=== PATIENT | female | born 1940 | race Caucasian/White ===

== ENCOUNTER 2017-05-20 14:11 | Emergency (ER) | payer MEDICARE, MEDICAID, SELFPAY ==
[2017-05-20 14:13] VITALS: BP 118/75; PULSE 56; RESP 20; TEMP 36.9; O2SAT 93; BMI 36.6
--- NOTE | 2017-05-20 14:39 | HMH.EDGENADL ---
ED Disposition Clinical Impression: Mental status change resolved Compression fracture of L3 lumbar vertebra Qualifiers: Encounter type: initial encounter Fracture type: closed Qualified Code(s): S32.030A - Wedge compression fracture of third lumbar vertebra, initial encounter for closed fracture Disposition: Xfer SNF Condition on Discharge: Good Instructions: DI for Altered Mental Status Additional Instructions: Continue current medications. Dr. Farrell will follow up for further evaluation and treatment of compression fracture. - Critical Care Critical Care Time: No Attestation: On 05/20/17, the high probability of a clinically significant, sudden or life threatening deterioration of the following system(s) required my full and direct attention, intervention and personal management. The time I documented below is in addition to time spent performing reported procedures but includes the following listed in this critical care notation. Medical Decision Making Vital Signs: 05/20/17 14:13 05/20/17 16:13 05/20/17 16:30 Temperature 98.4 F Temperature Source Oral Pulse Rate [Right Brachial] 56 L 89 60 Respiratory Rate 20 16 16 Blood Pressure [Right Arm] 118/75 135/89 135/89 Blood Pressure Mean [Right Arm] 89 104 104 Blood Pressure Source [Right Arm] Automatic Cuff Automatic Cuff Blood Pressure Position [Right Arm] Sitting Sitting 02 Sat by Pulse Oximetry 93 L 94 L Oxygen Delivery Method Nasal Cannula Nasal Cannula Oxygen Flow Rate (LPM) 2 - Lab Data Lab Results 05/20/17 15:12: Urine Color Yellow, Urine Appearance Clear, Urine pH 6.0, Ur Specific [place] 1.010, Urine Protein Negative, Urine Glucose (UA) Negative, Urine Ketones Negative, Urine Blood Trace-i, Urine Nitrate Negative, Urine Bilirubin Negative, Urine Urobilinogen 0.2, Ur Leukocyte Esterase Negative, Urine RBC None, Urine WBC Occasional, Ur Squamous Epith Cells 10-20, Urine Bacteria Trace 05/20/17 16:30: WBC 8.6, RBC 4.00 L, Hgb 11.1 L, Hct 35.3 L, MCV 88.3, MCH 27.7, MCHC 31.3 L, RDW 16.2, Plt Count 159, MPV 10.0, Neut % (Auto) 77.3, Lymph % (Auto) 16.1, Blanco % (Auto) 4.2, Eos % (Auto) 2.1, Baso % (Auto) 0.3, Neut # (Auto) 6.7, Lymph # (Auto) 1.4, Blanco # (Auto) 0.4, Eos # (Auto) 0.2, Baso # (Auto) 0.0 05/20/17 16:30: Sodium 136, Potassium 5.3 H, Chloride 99, Carbon Dioxide 35 H, Anion Gap 7.3, BUN 17, Creatinine 0.78, Estimated Creat Clear 65, Estimated GFR 71, Est GFR ( Amer) 86, Glucose 126 H, Calcium 8.4 L, Total Bilirubin 0.6, AST 7 L, ALT 23, Alkaline Phosphatase 103, Total Creatine Kinase 21 L, CK-MB (CK-2) 0.7, CK-MB (CK-2) Rel Index 3.3, Troponin I < 0.02, Total Protein 6.8, Albumin 3.2 L, Globulin 3.6 H, Albumin/Globulin Ratio 0.9 L 05/20/17 16:30: Lactic Acid 0.5 Result diagrams: 05/20/17 16:30 05/20/17 16:30 - Radiology Data #1 Image(s): Chest Image Reviewed: Yes I have reviewed radiologist's interpretation Left lower lobe atelectasis, cardiomegaly - CT Data CT Scan: Head, L-Spine Time Received: 16:[address] Reviewed: Yes: I have viewed the radiologist's interpretation Findings Narrative: Head: No acute process Lumbar spine: Mild acute wedge compression L3, Chronic compression fractures of T12 and L4. Degenerative disc disease L4-L5 with bulging disc and possible small central disc protrusion. Grade 1 spondylolisthesis of L5 on S1 severe hypertrophic facet changes and bulging disc. - [place] Inquiry Pt receiving controlled substance: No Medical Decision Making Narrative: 5:45 PM: Case discussed with Dr. Farrell. Discharge back to assisted. He will discuss potential kyphoplasty with patient and son. Son informed. The patient is already on [place] for pain. General Adult HPI - General Chief complaint: PAIN Stated complaint: altered mental status Mode of Arrival: EMS Limitations: No Limitations Description of Symptoms (Recalled from ER Triage Doc. by RN): Per EMS report they were called for AMS. U
--- NOTE | 2017-05-20 15:08 | CT_ITS ---
CT head/brain wo con HISTORY: Altered mental status, altered level of consciousness, confusion, slurred speech ITS.REASON: AMS, slurred speech ORDERING PHYSICIAN: Donato Schultz MD PATIENT AGE: 77 years COMPARISON: None TECHNIQUE: Axial images obtained without contrast. Brain and bone windows reviewed. FINDINGS: No midline shift, mass effect, intracranial hemorrhage, hydrocephalus, or extra-axial fluid collection is evident. There is mild generalized atrophy with hypoattenuation in the periventricular region consistent with ischemic gliotic change from microvascular disease. The calvarium has an unremarkable appearance. No mastoid effusion. No sinus air-fluid levels.. IMPRESSION: 1. No acute intracranial finding. 2. Atrophy with ischemic gliotic change. 3. There is no evidence of intracranial hemorrhage, focal mass, or acute territorial infarction. A negative CT does not exclude an acute CVA. A follow-up head CT or MRI is recommended if neurological symptoms persist
--- NOTE | 2017-05-20 15:10 | XR_ITS ---
XR chest AP HISTORY: ITS.REASON: AMS, slurred speech ORDERING PHYSICIAN: Donato Schultz MD PATIENT AGE: 77 years COMPARISON: 02/21/2017 FINDINGS: Study is underpenetrated. There is cardiomegaly without failure. Atelectatic changes are present in the left lower lobe. Cannot exclude underlying airspace disease secondary to the technique. There is an old left humeral neck fracture. IMPRESSION: Limited exam with Cardiomegaly with left lower lobe atelectasis
--- NOTE | 2017-05-20 15:14 | CT_ITS ---
CT lumbar spine wo con INDICATION: ITS.REASON: low back pain ORDERING PHYSICIAN: Donato Schultz MD PATIENT AGE: 77 years COMPARISON: 09/07/2008 TECHNIQUE: Axial images are obtained without contrast. Sagittal and coronal reformatted images are reviewed as well. FINDINGS: There is normal alignment. Mild wedging at T12 present that had a similar appearance on a prior abdomen CT of 03/23/2014. There is generalized osteopenia. Mild compression changes are present involving the superior endplate of L3 which is developed since the previous lumbar spine CT of 09/07/2008 and the previous abdomen CT of 03/23/2014. No retropulsed fragments are evident. Facet arthritic changes are present at L3-L4. There is mild chronic compression changes involving the superior endplate of L4. There is degenerative disc disease at L4-L5 with moderate to severe facet arthritic changes and bulging disc. There may be small central disc protrusion at this level which may be better evaluated with MRI. There is grade 1 spondylolytic spondylolisthesis of L5 on S1 with severe facet hypertrophic change and bulging disc at that level. There is moderate to severe right-sided foraminal narrowing on with bilateral lateral recess narrowing. IMPRESSION: 1. Mild acute wedge compression changes involving the L3 vertebral body 2. Chronic compression changes involving T12 and L4 3. Degenerative disc disease L4-L5 with bulging disc and possible small central disc protrusion. 4. Grade 1 spondylitic spondylolisthesis of L5 on S1 with severe facet hypertrophic change and bulging disc
[2017-05-20 16:13] VITALS: BP 135/89; PULSE 89; RESP 16; O2SAT 94
[2017-05-20 16:30] VITALS: BP 135/89; PULSE 60; RESP 16
[2017-05-20 16:33] LABS: Microscopic, Urine URINE MICROSCOPIC (MICROSCOPIC)
[2017-05-20 16:39] LABS: Appearance,Urine CLEAR (Clear); Bilirubin,Urine Negative (Negative); Blood, Urine TRACE-I (Negative); Color,Urine YELLOW (Yellow); Glucose,Urine (UA) Negative (Negative); Ketones,Urine Negative (Negative); Leukocyte Esterase,Urine Negative (Negative); Nitrate,Urine Negative (Negative); Protein,Urine Negative (Negative); Urobilinogen,Urine 0.2 EU/dl (0.2)
[2017-05-20 16:39] LABS: Basophils % 0.3 % (0.1-2.0); Eosinophils # 0.2 K/mm3 (0.0-0.4); Eosinophils % 2.1 % (0.1-12.0); Hematocrit 35.3 % (37.0-47.0); Hemoglobin 11.1 g/dL (12.2-16.2); Lymphocytes # 1.4 K/mm3 (0.7-4.5); Lymphocytes % 16.1 K/mm3 (10-50); Mean Corpuscular HGB Conc 31.3 g/dL (31.8-35.4); Mean Corpuscular Hemoglobin 27.7 pg (27.0-31.2); Mean Corpuscular Volume 88.3 fl (81-99); Monocytes # 0.4 K/mm3 (0.1-1.0); Monocytes % 4.2 % (1.7-9.3); Neutrophils # 6.7 K/mm3 (1.8-7.8); Neutrophils % 77.3 % (37.0-80.0); Platelet Count 159 K/mm3 (142-424); Red Cell Distribution Width 16.2 % (11.5-17.5); White Blood Count 8.6 K/mm3 (4.8-10.8)
[2017-05-20 16:52] LABS: Lactic Acid 0.5 mmol/L (0.4-2.0)
[2017-05-20 16:55] LABS: Bacteria,Urine Trace /lpf; WBC,Urine Occasional #/hpf (0-3)
[2017-05-20 17:03] LABS: Alanine Aminotransferase 23 U/L (12-78); Albumin Level 3.2 gm/dL (3.4-5.0); Albumin/Globulin Ratio 0.9 (1.1-1.8); Alkaline Phosphatase 103 U/L (46-116); Anion Gap 7.3 mEq/L (5-15); Aspartate Amino Transferase 7 U/L (15-37); Bilirubin,Total 0.6 mg/dL (0.2-1.0); Blood Urea Nitrogen 17 mg/dL (7-18); CKMB Relative Index 3.3 U/L (0-4.0); Calcium 8.4 mg/dL (8.5-10.1); Carbon Dioxide 35 mmol/L (21.0-32.0); Chloride 99 mmol/L (98-107); Creatine Kinase 21 U/L (26-192); Creatine Kinase MB 0.7 mg/ml (0.0-3.6); Creatinine Clearance Estimated 65 mL/min (0-300); Creatinine,Serum 0.78 mg/dL (0.55-1.02); Estimated Glomerular Filt Rate 71 ml/min (>60); GFR (African American) 86 ML/MIN (>60); Globulin 3.6 gm/dl (1.3-3.2); Glucose 126 mg/dL (74-106); Potassium 5.3 mmoL/L (3.5-5.1); Sodium 136 mmol/L (136-145); Total Protein,Serum 6.8 gm/dL (6.4-8.2); Troponin I < 0.02 ng/ml (0.00-0.06)
[2017-05-20 20:30] VITALS: BP 165/65; PULSE 66; RESP 20; TEMP 36.8; O2SAT 94
[2017-05-20 20:50] VITALS: BP 165/65; PULSE 66; RESP 16; TEMP 36.8; O2SAT 94
== END 2017-05-20 20:52 ==
PROVIDERS: Emergency Provider Emergency Medicine; Family Provider Internal Medicine Adolescent Medicine
DX: S32.030A Wedge compression fracture of third lumbar vertebra, initial encounter for closed fracture (principal); I51.7 Cardiomegaly; Z88.2 Allergy status to sulfonamides
CPT/HCPCS: 36415; 70450; 71045; 72131; 80053; 81001; 82550; 82553; 83605; 84484; 85025; 93005; 99285

== ENCOUNTER → 2017-06-01 12:57 | Outpatient (CLI) | payer MEDICARE, MEDICAID, SELFPAY ==
--- NOTE | 2017-06-01 13:05 | US_ITS ---
ULTRASOUND THYROID PROCEDURE: Multiple sagittal & transverse ultrasound images of the thyroid.MW HISTORY: Follow-up thyroid nodules COMPARISON: None ----- FINDINGS: RIGHT LOBE: Large right lobe measures 4.4 cm length X 3.4 cm x 2.4 cm Nodule A: Large primarily solid nodule mid right lobe measures 3 cm transverseX 2.2 cm AP X3 cm length. Small cystic areas at the anterior aspect of this nodule. Moderate to generous vascular flow along the anterior aspect of this large right lobe nodule. LEFT LOBE: Smaller left lobe measures 3.4 cm in length X 1.4 cm wide x 1.3 cm AP. . No discrete nodule the smaller left lobe: ISTHMUS: Thickened isthmus slightly lobular. Isthmus measures 6 mm AP in midline but increases to 8 mm AP to the right of midline. IMPRESSION Enlarged right lobe. Large dominant 3 cm nodule at the midportion right lobe 3. Thickened isthmus slightly lobular but no focal nodule.
== END ==
PROVIDERS: Family Provider Internal Medicine Adolescent Medicine; PCP Internal Medicine Adolescent Medicine; Visit Provider Otolaryngology
DX: E04.1 Nontoxic single thyroid nodule (principal)
CPT/HCPCS: 76536

== ENCOUNTER → 2017-06-01 13:33 | Outpatient (POV) | payer MEDICARE, MEDICAID, SELFPAY ==
[2017-06-01 14:28] VITALS: BP 150/91; PULSE 60; RESP 15; O2SAT 94; BMI 34.7
--- NOTE | 2017-06-01 17:42 | HMH.PMCON ---
Assessment and Plan (1) Osteoporosis Current visit: Yes Status: Chronic Category: Medical Code(s): M81.0 - Age-related osteoporosis without current pathological fracture (2) Compression fracture of L3 lumbar vertebra Current visit: No Status: Acute Category: Medical Code(s): S32.030A - Wedge compression fracture of third lumbar vertebra, initial encounter for closed fracture - Assessment and plan all Dx Assessment and Plan for all problems:: We will plan an L3 kyphoplasty for pain relief. I have explained the procedure to the patient and discussed the risks and benefits. I answered all of her and her son's questions. They have been instructed to call the office if they have any additional questions. Patient is not on any blood thinners. This note was dictated using voice recognition software and may contain errors or omissions HPI - Data of Consult Consult date: 06/01/17 Requesting Physician: Benita Swan APRN Primary Care Provider: Saulo Farrell MD Family Provider: Saulo Farrell MD - Consult Narrative Reason for consult: Sudden onset of back pain History of present illness: Ms. Zhang is a 77 year old female presents to discuss her sudden onset of back pain. Patient had a CT scan that showed that she had a compression fracture at both T12 and L3. Patient's majority of her pain is her low back. She states it does not radiate anywhere. Patient is in the wheelchair and does not walk. Patient uses a business solutions director for help. Patient rates her pain an 8 out of 10 today. Patient states all movement increases her pain and nothing decreases her pain. Patient is currently in a shelter and presents today with her son for this visit. Patient states she has a history of osteoporosis. CC: Benita Swan APRN [facility] History I have reviewed the patient's past medical history: Yes Medical History: Reports:: Diabetes Mellitus Type 2, Hypertension Denies:: Diabetes Mellitus Type 1 Fractures: Yes (SPINAL COMPRESSION FX) - *Social History Educational Level: Completed High School Smoking Status: Unknown if ever smoked Alcohol Intake: never Occupational Status: retired Housing: shelter - Psychiatric History Expresses thoughts of harming self/others: None Suicide Plan Description: No Plan *Family Hx:: Unable to obtain Review of Systems - Review of Systems ROS General: no recent weight change, no fever, no sleep disturbances Respiratory: no cough, no shortness of air, no recurring pulmonary infections Cardiovascular/Peripheral Vascular: No chest pain, No palpitations, no edema, no shortness of breath. Gastrointestinal: no new onset incontinence, normal bowel movements reported Genitourinary: no new onset incontinence Musculoskeletal: Back pain Psychiatric: normal mood/ affect, Neurological: Patient states she always has weakness in bilateral lower extremities, Meds Home Medications Medication Instructions Recorded Confirmed Type Acetaminophen [Tylenol 500mg 500 mg PO HSP PRN 06/01/17 06/01/17 History tablet] Amlodipine Besylate [Amlodipine 10 mg PO DAILY 06/01/17 06/01/17 History 10mg Tab] Aspirin [Aspirin 325mg Tab] 325 mg PO DAILY 06/01/17 06/01/17 History Bisacodyl [Dulcolax 10mg Supp] 10 mg RC DAILYP PRN 06/01/17 06/01/17 History Calcium Carbonate/Vitamin D3 1 each PO DAILY 06/01/17 06/01/17 History [Oyster Shell Calcium Tablet] Escitalopram Oxalate [Lexapro] 5 mg PO DAILY 06/01/17 06/01/17 History Esomeprazole Magnesium [Nexium] 40 mg PO DAILY 06/01/17 06/01/17 History Gabapentin [Neurontin 600mg 600 mg PO ONCE 06/01/17 06/01/17 History tablet] Hydrocod/Acet 5/325 mg [[place] 1 tab PO Q4HP PRN 06/01/17 06/01/17 History 5/325mg tablet] Insulin Lispro Protamin/Lispro 46 unit SQ ONCE 06/01/17 06/01/17 History [Humalog Mix 75-25 Kwikpen] Insulin Lispro Protamin/Lispro 58 unit SQ PC 06/01/17 06/01/17 History [Humalog Mix 7
--- NOTE | 2017-06-01 17:45 | P.CONS_ITS ---
Assessment and Plan (1) Osteoporosis Current visit: Yes Status: Chronic Category: Medical Code(s): M81.0 - Age- related osteoporosis without current pathological fracture (2) Compression fracture of L3 lumbar vertebra Current visit: No Status: Acute Category: Medical Code(s): S32.030A - Wedge compression fracture of third lumbar vertebra, initial encounter for closed fracture - Assessment and plan all Dx Assessment and Plan for all problems:: We will plan an L3 kyphoplasty for pain relief. I have explained the procedure to the patient and discussed the risks and benefits. I answered all of her and her son's questions. They have been instructed to call the office if they have any additional questions. Patient is not on any blood thinners. This note was dictated using voice recognition software and may contain errors or omissions HPI - Data of Consult Consult date: 06/01/17 Requesting Physician: Benita Swan APRN Primary Care Provider: Saulo Farrell MD Family Provider: Saulo Farrell MD - Consult Narrative Reason for consult: Sudden onset of back pain History of present illness: Ms. Zhang is a 77 year old female presents to discuss her sudden onset of back pain. Patient had a CT scan that showed that she had a compression fracture at both T12 and L3. Patient's majority of her pain is her low back. She states it does not radiate anywhere. Patient is in the wheelchair and does not walk. Patient uses a cubing machine tender for help. Patient rates her pain an 8 out of 10 today. Patient states all movement increases her pain and nothing decreases her pain. Patient is currently in a group home and presents today with her son for this visit. Patient states she has a history of osteoporosis. CC: Benita Swan APRN [facility] History I have reviewed the patient's past medical history: Yes Medical History: Reports:: Diabetes Mellitus Type 2, Hypertension Denies:: Diabetes Mellitus Type 1 Fractures: Yes (SPINAL COMPRESSION FX) - *Social History Educational Level: Completed High School Smoking Status: Unknown if ever smoked Alcohol Intake: never Occupational Status: retired Housing: group home - Psychiatric History Expresses thoughts of harming self/others: None Suicide Plan Description: No Plan *Family Hx:: Unable to obtain Review of Systems - Review of Systems ROS General: no recent weight change, no fever, no sleep disturbances Respiratory: no cough, no shortness of air, no recurring pulmonary infections Cardiovascular/Peripheral Vascular: No chest pain, No palpitations, no edema, no shortness of breath. Gastrointestinal: no new onset incontinence, normal bowel movements reported Genitourinary: no new onset incontinence Musculoskeletal: Back pain Psychiatric: normal mood/ affect, Neurological: Patient states she always has weakness in bilateral lower extremities, Meds Home Medications Medication Instructions Recorded Confirmed Type Acetaminophen [Tylenol 500mg 500 mg PO HSP PRN 06/01/17 06/01/17 History tablet] Amlodipine Besylate [Amlodipine 10 mg PO DAILY 06/01/17 06/01/17 History 10mg Tab] Aspirin [Aspirin 325mg Tab] 325 mg PO DAILY 06/01/17 06/01/17 History Bisacodyl [Dulcolax 10mg Supp] 10 mg RC DAILYP PRN 06/01/17 06/01/17 History Calcium Carbonate/Vitamin D3 1 each PO DAILY 06/01/17 06/01/17 History [Oyster Shell Calcium Tablet] Escitalopram Oxalate [Lexapro] 5
== END ==
PROVIDERS: Family Provider Internal Medicine Adolescent Medicine; PCP Internal Medicine Adolescent Medicine; Visit Provider Clinical Nurse Specialist Family Health
DX: S32.030A Wedge compression fracture of third lumbar vertebra, initial encounter for closed fracture (principal); M81.0 Age-related osteoporosis without current pathological fracture
CPT/HCPCS: 99202; 76536

== ENCOUNTER 2017-06-25 07:33 | Day surgery (SDC) | payer MEDICARE, MEDICAID, SELFPAY ==
[2017-06-24 10:47] VITALS: BMI 33.7
[2017-06-25 08:06] VITALS: BP 145/65; PULSE 65; RESP 18; TEMP 36.4; O2SAT 89
[2017-06-25 08:30] LABS: POC Glucose,Bedside 269 mg/dL (70-110)
--- NOTE | 2017-06-25 08:38 | P.PN_ITS ---
[facility] Anesthesia Checklist - Patient Identification Patient Identification: Arm Band, Verbal (Name & ) - Structural Data Admitted From: Long-term Nursing Facility Consent for Planned Operative Procedure(s) Verified: Yes Verified Documents: Surgical Consent, History and Physical - NPO Status Verified Time NPO: 00:00 - Additional verifications Patient : No Anesthesia Reactions: No - Airway Assessment C-Spine Mobility Assessed: Yes (Limited ROM) TMJ Mobility Assessed: Yes Dentition: Edentulous - Neurological Assessment Level of Consciousness: Awake Hx Seizures: No Numbness or tingling in extremities: No - Anesthesia Plan Anesthesia Risk discussed: Yes Anesthesia Plan: Verified ASA Class: III Anesthesia Type: MAC [facility] Anesthesia HX I have reviewed the patient's past medical history: Yes Medical History: Reports:: Diabetes Mellitus Type 2 (FSBS at [facility] 2x day), Gastroesophageal Reflux Disease(GERD), Hypertension Denies:: Cancer, Diabetes Mellitus Type 1, Internal Pacemaker, MRSA, Seizures Other Surgeries: Yes: Appendectomy. No: Pacemaker Amputation: No Fractures: Yes (SPINAL COMPRESSION FX) *Family Hx:: Unable to obtain
[2017-06-25 09:41] LABS: POC Glucose,Bedside 241 mg/dL (70-110)
[2017-06-25 10:52] LABS: POC Glucose,Bedside 199 mg/dL (70-110)
--- NOTE | 2017-06-25 12:36 | SUR.PREOP ---
Patient had bowel movement per bedpan.Patient resting. no S/S of distress noted. Family at bedside.
--- NOTE | 2017-06-25 13:53 | HMH.OPNOTE ---
Date of procedure: 06/25/17 Pre-op Diagnosis:: L3 compression fracture acute Post-op Diagnosis:: Same Procedure performed:: L3 kyphoplasty under fluoroscopy Surgeon:: Addy Santos MD AIR PLANT ENGINEER:: Kingston Singh Anesthesia: MAC Estimated blood loss (mL): 10 Clinical Note:: This patient is a pleasant 77-year-old white female who has sudden onset of back pain. She had a fall at the custodial. She has an old compression fracture at T12 however recent CT scan shows new compression fracture at L3. She has debilitating pain in the lower lumbar area. She has edema present around the L3 compression fracture with superior endplate changes. We will do an L3 kyphoplasty today for pain relief. Operative findings:: None Operative note:: Kyphoplasty L3 vertebral body informed consent was obtained and risks and benefits of the procedure was explained to the patient. Patient was taken to the OR and was placed prone on the procedure table. The patient was prepped and draped in sterile fashion. I used 2 C arms for AP and lateral view of the L3 vertebral body. The skin and subcutaneous tissues were anesthetized using lidocaine. Bone access trochars were placed through the LEFT and RIGHT pedicle and advanced into the vertebral body. After accessing the vertebral body a balloon was inserted first on the LEFT side followed by the RIGHT side with approximately 3 mL of contrast placed in each balloon with good insufflation. After adequate spread of contrast through the balloon, the balloons were deflated and cement was introduced first on the LEFT side with placement of approximately 3-1/2 mL of cement with good spread throughout the vertebral body and then on the RIGHT side was approximately 3 1/2 mL cement with good spread throughout the vertebral body. There was no extrusion of cement through the lateral blair, anterior or posterior blair. Also no extrusion through superior or inferior blair. The bone access trochars were removed and dressing was placed. The patient was taken back to recovery in stable condition. She had good resolution of her back pain 5 minutes after the procedure. She tolerated the procedure well with no complications and was discharged home neurologically intact. Condition: stable Disposition: PACU (We will follow-up with her in 2 weeks.) Complications:: None
--- NOTE | 2017-06-25 13:58 | P.OP_ITS ---
Date of procedure: 06/25/17 Pre-op Diagnosis:: L3 compression fracture acute Post-op Diagnosis:: Same Procedure performed:: L3 kyphoplasty under fluoroscopy Surgeon:: Addy Santos MD RESEARCH AND DEVELOPMENT TECHNICIAN:: Kingston Singh Anesthesia: MAC Estimated blood loss (mL): 10 Clinical Note:: This patient is a pleasant 77-year-old white female who has sudden onset of back pain. She had a fall at the senior care. She has an old compression fracture at T12 however recent CT scan shows new compression fracture at L3. She has debilitating pain in the lower lumbar area. She has edema present around the L3 compression fracture with superior endplate changes. We will do an L3 kyphoplasty today for pain relief. Operative findings:: None Operative note:: Kyphoplasty L3 vertebral body informed consent was obtained and risks and benefits of the procedure was explained to the patient. Patient was taken to the OR and was placed prone on the procedure table. The patient was prepped and draped in sterile fashion. I used 2 C arms for AP and lateral view of the L3 vertebral body. The skin and subcutaneous tissues were anesthetized using lidocaine. Bone access trochars were placed through the LEFT and RIGHT pedicle and advanced into the vertebral body. After accessing the vertebral body a balloon was inserted first on the LEFT side followed by the RIGHT side with approximately 3 mL of contrast placed in each balloon with good insufflation. After adequate spread of contrast through the balloon, the balloons were deflated and cement was introduced first on the LEFT side with placement of approximately 3-1/2 mL of cement with good spread throughout the vertebral body and then on the RIGHT side was approximately 3 1/2 mL cement with good spread throughout the vertebral body. There was no extrusion of cement through the lateral blair, anterior or posterior blair. Also no extrusion through superior or inferior blair. The bone access trochars were removed and dressing was placed. The patient was taken back to recovery in stable condition. She had good resolution of her back pain 5 minutes after the procedure. She tolerated the procedure well with no complications and was discharged home neurologically intact. Condition: stable Disposition: PACU (We will follow-up with her in 2 weeks.) Complications:: None
[2017-06-25 15:18] VITALS: BP 115/48; PULSE 81; RESP 18; TEMP 36.9; O2SAT 96
[2017-06-25 15:33] VITALS: BP 121/61; PULSE 74; RESP 18; O2SAT 95
[2017-06-25 15:48] VITALS: BP 133/59; PULSE 74; RESP 18; O2SAT 96
[2017-06-25 16:03] VITALS: BP 123/86; PULSE 73; RESP 18; O2SAT 96
[2017-06-25 16:33] VITALS: BP 113/66; PULSE 71; RESP 18; TEMP 36.9; O2SAT 96
[2017-06-25 17:02] LABS: POC Glucose,Bedside 285 mg/dL (70-110)
[2017-06-25 17:02] LABS: POC Glucose,Bedside 254 mg/dL (70-110)
== END 2017-06-25 16:33 | disposition home or self-care (01) ==
LOC: OR 07:36
PROVIDERS: Family Provider Internal Medicine Adolescent Medicine; PCP Internal Medicine Adolescent Medicine; Visit Provider Anesthesiology
DX: M48.56XA Collapsed vertebra, not elsewhere classified, lumbar region, initial encounter for fracture (principal); M81.0 Age-related osteoporosis without current pathological fracture; E11.9 Type 2 diabetes mellitus without complications
CPT/HCPCS: 22514; 82962; 96374

== ENCOUNTER → 2017-07-06 13:45 | Outpatient (POV) | payer MEDICARE, MEDICAID, SELFPAY ==
[2017-07-06 13:55] VITALS: BP 171/75; PULSE 65; RESP 18; TEMP 36.6; O2SAT 90; BMI 33.8
--- NOTE | 2017-07-06 14:02 | HMH.PAINSOAP ---
[facility] Pain Management SOAP Note Subjective:: Is a pleasant 77-year-old white female who presents today for follow-up after a L3 kyphoplasty. Patient states she is pain-free at this time. Patient states she is doing very well. Patient is not having any new symptomology. Patient and I discussed potential future compression fractures. Patient states that she has that pain again she will give our office a call. ROS General: no recent weight change, no fever, no sleep disturbances Respiratory: no cough, no shortness of air, no recurring pulmonary infections Cardiovascular/Peripheral Vascular: No chest pain, No palpitations, no edema, no shortness of breath. Gastrointestinal: no new onset incontinence, normal bowel movements reported Genitourinary: no new onset incontinence Musculoskeletal: Back pain Psychiatric: normal mood/ affect, Neurological: [denies weakness in extremities], [denies balance issues] Objective:: Physical Exam General: Alert and oriented x3, no acute distress, pleasant and cooperative, [on room air] Lungs: Resps E/U, Symmetrical chest expansion, Eyes: PERRL Musculoskeletal: Flexion and extension of lumbar spine somewhat guarded secondary to pain, deep tendon reflexes normal, strength in upper and lower extremities [5/5], [abnormal gait noted] Neurological: speech clear, library customer service clerk equal, no gross sensory deficits Assessment:: L3 kyphoplasty, history of compression fracture Plan:: We will follow-up with this patient on an as-needed basis. Patient was instructed to call the office if there are any changes in her symptoms. This note was dictated using voice recognition software and may contain errors or omissions
--- NOTE | 2017-07-06 14:05 | P.CONS_ITS ---
[facility] Pain Management SOAP Note Subjective:: Is a pleasant 77-year-old white female who presents today for follow-up after a L3 kyphoplasty. Patient states she is pain-free at this time. Patient states she is doing very well. Patient is not having any new symptomology. Patient and I discussed potential future compression fractures. Patient states that she has that pain again she will give our office a call. ROS General: no recent weight change, no fever, no sleep disturbances Respiratory: no cough, no shortness of air, no recurring pulmonary infections Cardiovascular/Peripheral Vascular: No chest pain, No palpitations, no edema, no shortness of breath. Gastrointestinal: no new onset incontinence, normal bowel movements reported Genitourinary: no new onset incontinence Musculoskeletal: Back pain Psychiatric: normal mood/ affect, Neurological: [denies weakness in extremities], [denies balance issues] Objective:: Physical Exam General: Alert and oriented x3, no acute distress, pleasant and cooperative, [ on room air] Lungs: Resps E/U, Symmetrical chest expansion, Eyes: PERRL Musculoskeletal: Flexion and extension of lumbar spine somewhat guarded secondary to pain, deep tendon reflexes normal, strength in upper and lower extremities [5/5], [abnormal gait noted] Neurological: speech clear, architectural modeler equal, no gross sensory deficits Assessment:: L3 kyphoplasty, history of compression fracture Plan:: We will follow-up with this patient on an as-needed basis. Patient was instructed to call the office if there are any changes in her symptoms. This note was dictated using voice recognition software and may contain errors or omissions
== END ==
PROVIDERS: Family Provider Internal Medicine Adolescent Medicine; PCP Internal Medicine Adolescent Medicine; Visit Provider Clinical Nurse Specialist Family Health
DX: S32.030S Wedge compression fracture of third lumbar vertebra, sequela (principal)
CPT/HCPCS: 99212

== ENCOUNTER → 2017-09-08 13:44 | Outpatient (CLI) | payer MEDICARE, MEDICAID, SELFPAY ==
--- NOTE | 2017-09-08 13:47 | US_ITS ---
US thyroid HISTORY: Follow-up thyroid nodule ITS.REASON: thyoid nodule ORDERING PHYSICIAN: Aguila Gonzalez MD PATIENT AGE: 77 years Comparison: 3 08/04/2012 FINDINGS: The right lobe measures 4.3 x 2.8 x 3.3 cm. A solid nodule once again is noted encompassing the right lobe measuring 3.5 x 2.2 cm not significant changed. Small cystic component is present anteriorly. The left lobe measures 2.5 x 1.5 x 1.4 cm and has an unremarkable appearance. The isthmus is slightly thickened at 7 mm. IMPRESSION: Overall no change 3.5 cm x 2.2 cm solid nodule in the right lobe of the thyroid gland
== END ==
PROVIDERS: Family Provider Internal Medicine Adolescent Medicine; PCP Internal Medicine Adolescent Medicine; Visit Provider Otolaryngology
DX: E04.1 Nontoxic single thyroid nodule (principal)
CPT/HCPCS: 76536

== ENCOUNTER → 2017-12-22 15:34 | Outpatient (CLI) | payer MEDICARE, MEDICAID, SELFPAY ==
[2017-12-22 17:54] LABS: Blood Urea Nitrogen 16 mg/dL (7-18); Creatinine,Serum 0.97 mg/dL (0.55-1.02); Estimated Glomerular Filt Rate 55 ml/min (>60); GFR (African American) 67 ML/MIN (>60)
== END ==
PROVIDERS: PCP Internal Medicine Adolescent Medicine; Visit Provider Surgery
DX: R93.2 Abnormal findings on diagnostic imaging of liver and biliary tract (principal)
CPT/HCPCS: 36415; 82565; 84520

== ENCOUNTER → 2018-01-01 09:55 | Outpatient (CLI) | payer MEDICARE, MEDICAID, SELFPAY ==
--- NOTE | 2018-01-01 10:23 | CT_ITS ---
CT abdomen w con CLINICAL INDICATION: Follow-up liver lesion, abdominal pain, hypodense lesion of the liver on previous CT scan ITS.REASON: abnormal ct of liver ORDERING PHYSICIAN: Rachid Ponce MD PATIENT AGE: 77 years COMPARISON: None TECHNIQUE: Axial images obtained with sagittal and coronal reformats. All CT scans at the facility use one or more dose reduction, viz: automated exposure control, ma/kV adjustment per patient size (including targeted exams where dose is matched to indication, i.e. head), or iterative reconstruction technique. PROCEDURE: Oral Contrast: Redicat IV Contrast: 75 mL of Isovue-370. FINDINGS: Images are obtained at 30 seconds, 60 seconds, and 5 minutes postcontrast infusion There are atelectatic or fibrotic changes in the left lower lobe posteriorly and in the right lung base. There is once again noted somewhat ill-defined decreased attenuation within the left hepatic lobe. This is similar. On all 3 phases of contrast enhancement. This is not displacing any hepatic vessels and is on both right and left aspect of the interhemispheric fissure region.. This extends inferiorly to the anterior segment of the right hepatic lobe and is not significant change from 12/05/2017. The pattern is not typical for malignancy although that entity is not completely excluded. This may represent some focal fatty infiltration of the liver or sequela from posttraumatic change. Short-term CT follow-up is recommended in 3 months. This can be performed without contrast. This does not have a typical appearance for hemangioma. Spleen, adrenal glands, pancreas, and kidneys have an unremarkable appearance. There is ventral abdominal wall hernia which contains a loop of transverse colon as previously described smaller defect just superior to the larger hernia containing fat. No evidence of intestinal obstruction. IMPRESSION: Atypical hypoattenuating appearance of the anterior margin of the liver both right and left hepatic lobe. This does not have a typical appearance for neoplasm or hemangioma. May represent atypical fatty infiltration of the liver versus posttraumatic changes. Recommend 3 month follow-up without contrast to confirm short-term stability. No change in the ventral abdominal wall hernias as previously described with a loop of transverse colon in the larger of the ventral wall hernias Left lower lobe fibrotic or atelectatic changes
== END ==
PROVIDERS: Family Provider Internal Medicine Adolescent Medicine; PCP Internal Medicine Adolescent Medicine; Visit Provider Surgery
DX: R93.2 Abnormal findings on diagnostic imaging of liver and biliary tract
CPT/HCPCS: 74160; Q9967

== ENCOUNTER → 2018-03-01 13:13 | Outpatient (CLI) | payer MEDICARE, MEDICAID, SELFPAY ==
--- NOTE | 2018-03-01 13:14 | US_ITS ---
US thyroid HISTORY: Follow-up thyroid nodule ITS.REASON: hx thyroid nodule ORDERING PHYSICIAN: Aguila Gonzalez MD PATIENT AGE: 77 years Comparison: 09/08/2017 FINDINGS: The right lobe is 4.6 x 2.2 x 2.6 cm. A 3.5 x 2 cm isoechoic nodule present in the mid polar region of the right lobe. There is a small cystic component anteriorly. Nodules not significant change from the previous study. The left lobe is 3.8 x 1.3 x 1.3 cm with heterogeneous echogenicity IMPRESSION: No change 3.5 cm x 2 cm mostly solid nodule in the mid polar region of the right thyroid gland
== END ==
PROVIDERS: PCP Internal Medicine Adolescent Medicine; Visit Provider Otolaryngology
DX: E04.1 Nontoxic single thyroid nodule (principal)
CPT/HCPCS: 76536

== ENCOUNTER → 2018-04-05 12:56 | Outpatient (CLI) | payer MEDICARE, MEDICAID, SELFPAY ==
--- NOTE | 2018-04-05 12:58 | CT_ITS ---
CT abdomen pelvis wo con CLINICAL INDICATION: Follow-up liver lesion, abdominal pain, follow-up abnormal CT scan ITS.REASON: liver lesion ORDERING PHYSICIAN: Rachid Ponce MD PATIENT AGE: 77 years COMPARISON: 01/01/2018, 12/05/2017 TECHNIQUE: Axial images obtained with sagittal and coronal reformats. All CT scans at the facility use one or more dose reduction, viz: automated exposure control, ma/kV adjustment per patient size (including targeted exams where dose is matched to indication, i.e. head), or iterative reconstruction technique. PROCEDURE: Oral Contrast: None IV Contrast: None . FINDINGS: Chronic changes are present in the lung bases as before. Previously there was well-defined low density changes involving both right and left hepatic lobe anteriorly. This is less apparent compared to the previous exam. The changes are now more prominent along the right hepatic lobe laterally and inferiorly while the changes that were noted superiorly or somewhat less well-defined. These findings are probably related to fatty infiltration of the liver. Continued follow-up is suggested. Would recommend an rather exam without and with contrast with three-phase imaging in 3 months. The spleen, adrenal glands, pancreas, and kidneys show no acute finding. There is fatty infiltration of the pancreas and there is a 1.3 similar cortical cyst projecting off the anterior aspect of the left kidney. Ventral abdominal wall hernia has been repaired with postsurgical changes of the intra-abdominal wall. No residual or recurrent hernia evident. No intestinal obstruction or free air. No evidence of appendicitis or diverticulitis. There has been a prior hysterectomy. Artifact is present from left hip decompression screw and intramedullary tory. There has been prior kyphoplasty at L3. Mild wedge changes are present at L1 and L4 which are not significant changed. IMPRESSION: 1. Heterogeneous decreased attenuation once again noted involving the peripheral aspect of the liver now more localized in the inferior aspect of the right hepatic lobe anteriorly and laterally. The previously noted area of decreased attenuation in the junction of the right left hepatic lobe anteriorly is less apparent. This leads one to believe that this is fatty infiltration of the liver now with a somewhat different appearance. Atypical infection process is an additional consideration but felt to be less likely. Please correlate with clinical parameters. Suggest continued 3 month follow-up without and with three-phase postenhanced images. 2. Interval ventral abdominal wall hernia repair
== END ==
PROVIDERS: PCP Internal Medicine Adolescent Medicine; Visit Provider Surgery
DX: R10.9 Unspecified abdominal pain (principal); D37.6 Neoplasm of uncertain behavior of liver, gallbladder and bile ducts
CPT/HCPCS: 74176

== ENCOUNTER → 2018-07-13 08:38 | Outpatient (CLI) | payer MEDICARE, MEDICAID, SELFPAY ==
[2018-07-13 09:21] LABS: Blood Urea Nitrogen 13 mg/dL (7-18); Creatinine,Serum 0.81 mg/dL (0.55-1.02); Estimated Glomerular Filt Rate 68 ml/min (>60); GFR (African American) 82 ML/MIN (>60)
--- NOTE | 2018-07-13 09:27 | CT_ITS ---
CT abdomen pelvis wo/w con CLINICAL INDICATION: Follow-up liver lesion ITS.REASON: IV contrast hepatic protocol in 3 months ORDERING PHYSICIAN: Rachid Ponce MD PATIENT AGE: 78 years COMPARISON: 04/05/2018 TECHNIQUE: Axial images obtained with sagittal and coronal reformats. EXAM was performed without and with contrast with three-phase postenhanced images obtained All CT scans at the facility use one or more dose reduction, viz: automated exposure control, ma/kV adjustment per patient size (including targeted exams where dose is matched to indication, i.e. head), or iterative reconstruction technique. PROCEDURE: Oral Contrast: None IV Contrast: 75 mL's Optiray 350. FINDINGS: There is increasing consolidation in the left lower lobe with air bronchograms consistent with pneumonia with trace effusion. There are coronary artery calcifications. The previously noted area of low attenuation in the junction of the right left hepatic lobe anteriorly and in the right hepatic lobe inferiorly is less apparent and is felt to have been due to an area of focal fatty infiltration.. There does remain some slight decreased attenuation within the junction of the right left hepatic lobe at the falciform ligament region consistent with fatty infiltration. There is a new area of focal decreased attenuation in the right hepatic lobe inferiorly and posteriorly ill-defined measuring 15 mm and may represent a new area of focal fatty infiltration. Would recommend continued 6 month follow-up. This can be performed without contrast. The spleen, adrenal glands, and kidneys have an unremarkable appearance. There is pancreatic atrophy. No intestinal obstruction or free air. There are scattered colonic diverticula. No evidence of diverticulitis. Prior cholecystectomy. No evidence of appendicitis. Prior hysterectomy. Postsurgical changes are present involving the intra-abdominal wall. Prior kyphoplasty at L3. Diffuse osteopenia is noted. There is mild depression of superior endplate of L2 which has developed since the previous study with mild wedging also of T11 and T12 which was present on the previous exam. There is some increased density at T11 compared to the previous study. IMPRESSION: 1. The hypodense lesion in the right hepatic lobe inferiorly and at the junction of the right left hepatic lobe are much less apparent consistent with focal fatty infiltration. 2. There is an area of decreased attenuation within the right hepatic lobe posteriorly and inferiorly which may also be due to focal fatty infiltration. Recommend 6 month follow-up for confirmation. This can be performed without contrast.
== END ==
PROVIDERS: PCP Internal Medicine Adolescent Medicine; Visit Provider Surgery
DX: R10.9 Unspecified abdominal pain (principal)
CPT/HCPCS: 36415; 74178; 82565; 84520; Q9967

== ENCOUNTER 2018-07-21 14:46 | Inpatient (IN) ==
--- NOTE | 2018-07-21 14:52 | Emergency Department Note ---
ED Disposition Clinical Impression: Acute respiratory failure with hypoxia and hypercapnia Disposition: Admitted As Inpatient Condition on Discharge: Serious Referrals: Saulo Farrell MD [Primary Care Provider] - - Critical Care Critical Care Time: Yes Attestation: On , the high probability of a clinically significant, sudden or life threatening deterioration of the following system(s) required my full and direct attention, intervention and personal management. The time I documented below is in addition to time spent performing reported procedures but includes the following listed in this critical care notation. Total Critical Care Time: 45 Vital system(s) involved:: Respiratory Failure My critical care processes included: Assessment & monitoring of V/S, Initial and Re-exams, Data Review/Interpretation, Coordinating Care, Medication Orders and management, Documentation Medical Decision Making - [place] Inquiry Pt receiving controlled substance: No Vital Signs: 07/21/18 14:48 07/21/18 15:17 07/21/18 15:56 Temperature 98.9 F Temperature Source Rectal Pulse Rate 62 Pulse Rate [Left Radial] 65 62 Respiratory Rate 26 H 20 Blood Pressure [Right Arm] 144/55 H 147/62 H Blood Pressure Mean [Right Arm] 84 90 Blood Pressure Source [Right Arm] Automatic Cuff Automatic Cuff Blood Pressure Position [Right Arm] Sitting Sitting 02 Sat by Pulse Oximetry 90 L 95 Oxygen Delivery Method Nasal Cannula Aerosol Mask Oxygen Flow Rate (LPM) 4 07/21/18 16:35 07/21/18 16:43 07/21/18 16:57 Temperature Temperature Source Pulse Rate Pulse Rate [Left Radial] 64 62 64 Respiratory Rate 18 Blood Pressure [Right Arm] 136/80 117/62 117/62 Blood Pressure Mean [Right Arm] 98 80 80 Blood Pressure Source [Right Arm] Automatic Cuff Automatic Cuff Automatic Cuff Blood Pressure Position [Right Arm] Sitting Sitting Sitting 02 Sat by Pulse Oximetry 97 97 Oxygen Delivery Method BiPAP BiPAP Oxygen Flow Rate (LPM) - Lab Data Lab Results 07/21/18 14:55: Specimen Source R brachial, O2 % 4lpm, ABG pH 7.25 L, ABG pCO2 87.5 H, ABG pO2 67.4 L, ABG HCO3 37.1 H, ABG Total CO2 39.8 H, ABG O2 Saturation 91, ABG Base Excess 9.8 H 07/21/18 15:20: WBC 8.1, RBC 3.56 L, Hgb 9.8 L, Hct 31.9 L, MCV 89.6, MCH 27.5, MCHC 30.7 L, RDW 18.1 H, Plt Count 137 L, MPV 11.3 H, Neut % (Auto) 80.5 H, Lymph % (Auto) 12.0, [place] % (Auto) 6.1, Eos % (Auto) 1.0, Baso % (Auto) 0.3, Neut # (Auto) 6.5, Lymph # (Auto) 1.0, [place] # (Auto) 0.5, Eos # (Auto) 0.1, Baso # (Auto) 0.0 07/21/18 15:20: Lactate 0.4 07/21/18 15:20: B-Natriuretic Peptide 236 H 07/21/18 15:25: Urine Color Yellow, Urine Appearance Clear, Urine pH 6.0, Ur Specific [place] >= 1.030, Urine Protein Trace, Urine Glucose (UA) Trace, Urine Ketones Negative, Urine Blood Trace-i, Urine Nitrate Positive, Urine Bilirubin Negative, Urine Urobilinogen 0.2, Ur Leukocyte Esterase Negative, Urine WBC 3-5, Ur Squamous Epith Cells Occasional, Urine Bacteria 4+ 07/21/18 16:20: Sodium 140, Potassium 5.0, Chloride 102, Carbon Dioxide 36 H, Anion Gap 7.0, BUN 22 H, Creatinine 0.96, Estimated Creat Clear 39, Estimated GFR 56 L, Est GFR ( Amer) 68, Glucose 162 H, Calcium 8.6, Total Bilirubin 1.3 H, AST 7 L, ALT 28, Alkaline Phosphatase 82, Troponin I < 0.02, Total Protein 7.2, Albumin 3.3 L, Globulin 3.9 H, Albumin/Globulin Ratio 0.8 L, TSH 4.04 H Result diagrams: 07/21/18 15:20 07/21/18 16:20 Orders (Tests/Meds): ED MEDICATIONS Generic Name Dose Route Start Last Admin Trade Name Freq PRN Reason Stop Dose Admin Levofloxacin/Dextrose 750 mg in 150 mls @ 100 mls/hr 07/21/18 17:15 Levofloxacin 750mg/150ml Premix IV 08/04/18 17:14 Q24H BELIA Protocol Sodium Chloride 3 ml 07/21/18 17:07 Sodium Chloride 3% 15ml Neb IH 08/20/18 17:06 ONCE PRN INDUCE SPUTUM COLLECTION Discontinued Medications Generic Name Dose Route Start Last Admin Trade Name Toby PRN Reason Stop Dose Admin Albuterol/Ipratropium 3 ml 07/21/18 15:10 07/21/18 15:20 Duoneb 3ml Neb IH 07/21/18 15:11 3 ml ONCE ONE Administration Furosemide 40 mg 07/21/18 17:01 Lasix 40mg/4ml Vial IV 07/21/18 17:02 ONCE ONE Methylprednisolone Sodium Succinate 125 mg 07/21/18 15:10 07/21/18 15:16 Solu-Medrol 125mg/2ml Vial IV 07/21/18 15:11 125 mg ONCE ONE Administration ORDERS Category Date Time Status XR chest portable Stat Exams 07/21/18 14:54 Taken Blood Culture Stat Micro 07/21/18 16:15 Received Sputum Culture & Gram Stain Stat Micro 07/21/18 17:07 Ordered Urine Culture Stat Micro 07/21/18 15:25 Received - Radiology Data #1 Image(s): Chest Image Reviewed: Yes I reviewed the patient's radiology image cardiomegaly. CHF +/- infiltrates. - CT Data CT Scan: Head Time Received: 16:[address] Reviewed: Yes: I have viewed the radiologist's interpretation Preliminary Findings: Normal/NAD - ECG Data Tracing #1 EKG interpreted by Donato Schultz MD: Rhythm: sinus Rate: 64 [place]: normal Ectopy: none Conduction: First-degree AV block ST Segment Changes: none T Wave Changes: none Q Waves: none No evidence of acute ischemia or injury Baseline artifact present, but I consider the EKG adequate for accurate interpretation. - Physician Consults Physician Consulted: Roxie Farrell Time: 17:12 Reason -: Admission Comment/Response: Agrees to admit the patient to the hospital. We discussed the patient's clinical information, including history, exam, laboratory and radiology results and ED course. Per hospital procedure, I will write temporary bridge inpatient orders on the patient. Specific orders requested by the admitting physician: Continue BiPAP, nebulizer treatments, steroids. Sputum culture. Levaquin. - Reevaluation(s) Time: 17:00 Reevaluation #1: Patient says she is feeling better. She is on BiPAP, alert and conversant when spoken to. Medical Decision Narrative: Review of records shows that the last time she was here in March she had acute respiratory failure and was intubated and transferred. Also had renal failure at that time. However, she does not carry a diagnosis of COPD. General Adult HPI - General Chief complaint: Weakness Stated complaint: weakness Time Seen by Provider: 07/21/18 14:46 - History of Present Illness HPI narrative: Brought in by ambulance from [facility]. custodial staff reported that she was lethargic and flaccid on her right side. On EMS arrival she was moving her right side but pulse ox was in the 80s on 2 L nasal cannula oxygen, which she is on chronically. She denies being short of breath at present. She denies any pain. She says she is short of breath "sometimes". Has no specific complaints at present. - Related Data Home Medications Medication Instructions Recorded Confirmed Acetaminophen [Tylenol 500mg 1,000 mg PO Q6HP PRN 06/01/17 07/21/18 tablet] Amlodipine Besylate [Amlodipine 10 mg PO DAILY 06/01/17 07/21/18 10mg Tab] Aspirin [Aspirin 325mg Tab] 325 mg PO DAILY 06/01/17 07/21/18 Calcium Carbonate/Vitamin D3 1 each PO DAILY 06/01/17 07/21/18 [Oyster [place] Calcium Tablet] Escitalopram Oxalate [Lexapro] 5 mg PO DAILY 06/01/17 07/21/18 Esomeprazole Magnesium [Nexium] 40 mg PO DAILY 06/01/17 07/21/18 Hydrocod/Acet 5/325 mg [[place] 1 tab PO Q4HP PRN 06/01/17 07/21/18 5/325mg tablet] Lactulose [Enulose] 10 gm PO NEEDED PRN 06/01/17 07/21/18 Loratadine 10 mg PO DAILY 06/01/17 07/21/18 Multivitamin with Minerals 1 each PO DAILY 06/01/17 07/21/18 [Multivitamins with Minerals] Ondansetron HCl [Zofran 4mg Tab] 4 mg PO Q6HP PRN 06/01/17 07/21/18 Polyethylene Glycol 3350 [Miralax 17 gm PO DAILY 06/01/17 07/21/18 17gm Packet] diazePAM [Valium] 2 mg PO DAILY 06/01/17 07/21/18 gabapentin 600 mg tablet 300 mg PO TID tab 12/22/17 07/21/18 metoprolol tartrate 25 mg tablet 25 mg PO BID 12/22/17 07/21/18 Insulin Glargine,Hum.rec.anlog 48 unit SQ HS 01/07/18 07/21/18 [Lantus Insulin 100units/mL 10mL vial] Amiodarone HCl [Amiodarone 100mg 200 mg PO DAILY 07/21/18 07/21/18 Tab] Apixaban [Eliquis 5mg tab] 5 mg PO BID 07/21/18 07/21/18 Insulin Glargine,Hum.rec.anlog 70 unit SQ HS 07/21/18 07/21/18 [Lantus Insulin 100units/mL 10mL vial] Linagliptin [Tradjenta 5mg tablet] 5 mg PO DAILY 07/21/18 07/21/18 Allergies Allergy/AdvReac Type Severity Reaction Status Date / Time Sulfa (Sulfonamide Allergy Unknown I-RASH Verified 04/13/18 13:12 Antibiotics) [SULFA (SULFONAMIDE ANTIBIOTICS)] [facility] History - Hepatitis A Screen Attestation statement:: This patient has been screened for Hepatitis A risk factors. I have reviewed the patient's past medical history: Yes Medical History: Reports:: Anxiety, Asthma, Depression, Diabetes Mellitus Type 2, Gastroesophageal Reflux Disease(GERD), Hypertension Denies:: Cancer, Diabetes Mellitus Type 1, Home Oxygen, Internal Pacemaker, MRSA, Seizures Other Medical History: Reports: Other. Denies: Blood Transfusion Reaction Laterality Cases: Left: Carpal Tunnel Release Other Surgeries: Yes: Appendectomy, Cholecystectomy, Hernia Repair, Hysterectomy-Total, Other (spine surgery). No: Pacemaker Amputation: No Fractures: Yes (SPINAL COMPRESSION FX) Comment: leg, arm x2, tubal, lapchole - Social History Smoking Status: Never smoker Alcohol Intake: never Substance Use Type: denies use Occupational Status: retired Housing: residential Household Members: caregiver - Psychiatric History Pschychiatric History:: Reports:: Anxiety, Depression Family Hx:: Unable to obtain, Diabetes ROS Obtained: Yes All systems reviewed & no additional complaints - Constitutional Constitutional: Denies fever(s) - Eyes Eyes: Denies change in vision - Cardiovascular Cardiovascular: Denies chest pain - Respiratory Respiratory: No cough, No dyspnea - Gastrointestinal Gastrointestingal: Denies: abdominal pain, nausea, vomiting - Neurologic Neurologic: Reports as per HPI, Denies headache(s) Physical Exam - General General appearance: other Comment: Drowsy, but answers questions appropriately and follows commands - Head Head exam: atraumatic, normocephalic - Eye Eye exam: Present: normal appearance, PERRL, EOMI - ENT ENT exam: Present: mucous membranes moist - Neck Neck exam: Present: normal inspection, trachea midline - Chest Chest inspection: Present: normal inspection, symmetric chest wall rise - Respiratory Respiratory exam: Present: normal lung sounds bilaterally. Absent: respiratory distress - Cardiovascular Cardiovascular exam: Present: regular rate, normal rhythm, normal heart sounds - Abdominal Exam Abdominal exam: Present: soft. Absent: distention, tenderness - Extremities Exam Extremities exam: Present: normal inspection - Neurological Exam Neurological exam: Present: oriented X3, CN II-XII intact, other (Drowsy. Generally mildly week, but no focal deficits). Absent: motor sensory deficit - Psychiatric Psychiatric exam: Present: normal affect, normal mood - Skin Skin exam: Present: warm, dry
[2018-07-21 15:19] LABS: ABG Base Excess 9.8 mmol/L (-2.4-2.3); ABG HCO3 37.1 mmhg (22.0-26.0); ABG Oxygen Saturation 91 % (90-100); ABG PH 7.25 mmol/L (7.35-7.45); ABG PO2 67.4 mmhg (80-100); ABG TCO2 39.8 mmhg (23-27)
[2018-07-21 15:20] LABS: Oxygen 4LPM %
[2018-07-21 15:21] LABS: ABG PCO2 87.5 mmhg (35.0-45.0)
[2018-07-21 15:31] LABS: Microscopic, Urine URINE MICROSCOPIC (MICROSCOPIC)
[2018-07-21 15:35] LABS: Appearance,Urine CLEAR (Clear); Bilirubin,Urine Negative (Negative); Blood, Urine TRACE-I (Negative); Color,Urine YELLOW (Yellow); Glucose,Urine (UA) TRACE (Negative); Ketones,Urine Negative (Negative); Leukocyte Esterase,Urine Negative (Negative); Protein,Urine TRACE (Negative); Specific Gravity, Urine >= 1.030 (1.005-1.030); Urobilinogen,Urine 0.2 EU/dl (0.2)
[2018-07-21 15:39] LABS: Basophils % 0.3 % (0.1-2.0); Eosinophils # 0.1 K/mm3 (0.0-0.4); Hematocrit 31.9 % (37.0-47.0); Hemoglobin 9.8 g/dL (12.2-16.2); Mean Corpuscular HGB Conc 30.7 g/dL (31.8-35.4); Mean Corpuscular Hemoglobin 27.5 pg (27.0-31.2); Mean Corpuscular Volume 89.6 fl (81-99); Mean Platelet Volume 11.3 fl (7.4-10.4); Monocytes # 0.5 K/mm3 (0.1-1.0); Monocytes % 6.1 % (1.7-9.3); Neutrophils # 6.5 K/mm3 (1.8-7.8); Neutrophils % 80.5 % (37.0-80.0); Platelet Count 137 K/mm3 (142-424); Red Blood Count 3.56 M/mm3 (4.20-5.40); Red Cell Distribution Width 18.1 % (11.5-17.5); White Blood Count 8.1 K/mm3 (4.8-10.8)
[2018-07-21 15:50] LABS: Squamous Epithelial Cell,Urine Occasional #/hpf (0-5)
[2018-07-21 15:51] LABS: Bacteria,Urine 4+ /lpf
[2018-07-21 16:48] LABS: Alanine Aminotransferase 28 U/L (12-78); Albumin Level 3.3 gm/dL (3.4-5.0); Albumin/Globulin Ratio 0.8 (1.1-1.8); Alkaline Phosphatase 82 U/L (46-116); Aspartate Amino Transferase 7 U/L (15-37); Bilirubin,Total 1.3 mg/dL (0.2-1.0); Blood Urea Nitrogen 22 mg/dL (7-18); Calcium 8.6 mg/dL (8.5-10.1); Carbon Dioxide 36 mmol/L (21.0-32.0); Chloride 102 mmol/L (98-107); Globulin 3.9 gm/dl (1.3-3.2); Glucose 162 mg/dL (74-106); Sodium 140 mmol/L (136-145); Thyroid Stimulating Hormone 4.04 uIU/ml (0.358-3.740); Total Protein,Serum 7.2 gm/dL (6.4-8.2)
[2018-07-21 18:37] LABS: ABG Base Excess 9.5 mmol/L (-2.4-2.3); ABG HCO3 33.7 mmhg (22.0-26.0); ABG Oxygen Saturation 99 % (90-100); ABG PH 7.43 mmol/L (7.35-7.45); ABG PO2 174.2 mmhg (80-100); ABG TCO2 35.3 mmhg (23-27)
[2018-07-21 18:38] LABS: Oxygen 50 %; PEEP 10
[2018-07-21 18:39] LABS: Allen's Test Acceptable
[2018-07-21 18:41] LABS: ABG PCO2 51.5 mmhg (35.0-45.0)
[2018-07-22 07:14] LABS: Anion Gap 8.4 mEq/L (5-15); Calcium 8.9 mg/dL (8.5-10.1); Potassium 4.4 mmoL/L (3.5-5.1)
--- NOTE | 2018-07-22 09:41 | History & Physical Report ---
*Admission Date: 07/21/18 *Chief complaint: Respiratory failure *History of present illness: 78-year-old white male, resident of local senior living, with history of CHF exacerbations who was brought to the emergency department with respiratory insufficiency, hypoxia and worsening mental status changes. In the emergency department was found to have respiratory acidosis, evidence of fluid overload and pneumonia, admitted to hospital on BiPAP support, with diuretics. This morning she states she feels improved. [facility] History I have reviewed the patient's past medical history: Yes Medical History: Reports:: Anxiety, Asthma, Depression, Diabetes Mellitus Type 2, Gastroesophageal Reflux Disease(GERD), Hyperlipidemia, Hypertension Denies:: Cancer, Diabetes Mellitus Type 1, Home Oxygen, Internal Pacemaker, MRSA, Seizures *Have you ever received a pneumonia vaccine?: No *Have you received a flu vaccine this season?: Yes Other Medical History: Reports: Other. Denies: Blood Transfusion Reaction Laterality Cases: Left: Carpal Tunnel Release Other Surgeries: Yes: Appendectomy, Cholecystectomy, Hernia Repair, Hyster ectomy-Total, Other (spine surgery). No: Pacemaker Amputation: No Fractures: Yes (SPINAL COMPRESSION FX) - *Social History Smoking Status: Former smoker Tobacco Type: cigarettes # Packs/Day (cigarettes): 1 #Yrs smoked (if former smoker): 32 Smoking End Date: 1976 Alcohol Intake: never Substance Use Type: denies use *Occupational Status:: retired Housing: senior living Household Members: caregiver *Travel in the last 8 weeks: None - Psychiatric History Expresses thoughts of harming self/others: None Suicide Plan Description: No Plan Pschychiatric History:: Reports:: Anxiety, Depression Family Hx:: Unable to obtain, Diabetes Review of Systems - Review of Systems Review of systems:: pertinent systems reviewed and negative unless documented below Patient reports some shortness of air but improving. Denies chest pain Denies vomiting or diarrhea. Denies pain in extremities or back. - *Neurologic Denies headache(s) Meds Home Medications Medication Instructions Recorded Confirmed Type Amlodipine Besylate [Amlodipine 10 mg PO DAILY 06/01/17 07/21/18 History 10mg Tab] Hydrocod/Acet 5/325 mg [[place] 1 tab PO Q4HP PRN 06/01/17 07/21/18 History 5/325mg tablet] Lactulose [Enulose] 10 gm PO DAILY PRN 06/01/17 07/22/18 History Loratadine 10 mg PO DAILY 06/01/17 07/21/18 History Multivitamin with Minerals 1 each PO DAILY 06/01/17 07/21/18 History [Multivitamins with Minerals] Ondansetron HCl [Zofran 4mg Tab] 4 mg PO Q6HP PRN 06/01/17 07/21/18 History Polyethylene Glycol 3350 [Miralax 17 gm PO DAILY 06/01/17 07/21/18 History 17gm Packet] diazePAM [Valium] 1 mg PO HS 06/01/17 07/22/18 History metoprolol tartrate 25 mg tablet 25 mg PO BID 12/22/17 07/21/18 History Amiodarone HCl [Amiodarone 100mg 200 mg PO DAILY 07/21/18 07/21/18 History Tab] Apixaban [Eliquis 5mg tab] 5 mg PO BID 07/21/18 07/21/18 History Insulin Glargine,Hum.rec.anlog 70 unit SQ HS 07/21/18 07/21/18 History [Lantus Insulin 100units/mL 10mL vial] Linagliptin [Tradjenta 5mg tablet] 5 mg PO DAILY 07/21/18 07/21/18 History Acetaminophen [8 Hour Pain Relief] 650 mg PO Q6HP PRN 07/22/18 07/22/18 History Calcium Carbonate/Vitamin D3 2 each PO DAILY 07/22/18 07/22/18 History [Oyster Shell+D 250 mg Tablet] Escitalopram Oxalate 10 mg PO DAILY 07/22/18 07/22/18 History Gabapentin [Gabapentin 300mg Cap] 300 mg PO TID 07/22/18 07/22/18 History Insulin Lispro [HumaLOG 100 2 unit SQ DIRECTED 07/22/18 07/22/18 History units/mL 3mL vial (SSI)] Melatonin 5 mg PO HS 07/22/18 07/22/18 History Omeprazole [Omeprazole 40mg 40 mg PO HS 07/22/18 07/22/18 History Capsule] Allergies Allergy/AdvReac Type Severity Reaction Status Date / Time Sulfa (Sulfonamide Allergy Unknown I-RASH Verified 04/13/18 13:12 Antibiotics) [SULFA (SULFONAMIDE ANTIBIOTICS)] Exam Vital signs and Labs for Last 24 Hours: Temp Pulse Resp BP Pulse Ox 97.5 F L 83 19 155/62 H 95 07/22/18 08:00 07/22/18 08:00 07/22/18 08:00 07/22/18 08:00 07/22/18 08:00 Laboratory Results - last 24 hr 07/21/18 14:55: Specimen Source R brachial, O2 % 4lpm, ABG pH 7.25 L, ABG pCO2 87.5 H, ABG pO2 67.4 L, ABG HCO3 37.1 H, ABG Total CO2 39.8 H, ABG O2 Saturation 91, ABG Base Excess 9.8 H 07/21/18 15:20: WBC 8.1, RBC 3.56 L, Hgb 9.8 L, Hct 31.9 L, MCV 89.6, MCH 27.5, MCHC 30.7 L, RDW 18.1 H, Plt Count 137 L, MPV 11.3 H, Neut % (Auto) 80.5 H, Lymph % (Auto) 12.0, [place] % (Auto) 6.1, Eos % (Auto) 1.0, Baso % (Auto) 0.3, Neut # (Auto) 6.5, Lymph # (Auto) 1.0, [place] # (Auto) 0.5, Eos # (Auto) 0.1, Baso # (Auto) 0.0 07/21/18 15:20: Lactate 0.4 07/21/18 15:20: B-Natriuretic Peptide 236 H 07/21/18 15:25: Urine Color Yellow, Urine Appearance Clear, Urine pH 6.0, Ur Specific [place] >= 1.030, Urine Protein Trace, Urine Glucose (UA) Trace, Urine Ketones Negative, Urine Blood Trace-i, Urine Nitrate Positive, Urine Bilirubin Negative, Urine Urobilinogen 0.2, Ur Leukocyte Esterase Negative, Urine WBC 3-5, Ur Squamous Epith Cells Occasional, Urine Bacteria 4+ 07/21/18 16:20: Sodium 140, Potassium 5.0, Chloride 102, Carbon Dioxide 36 H, Anion Gap 7.0, BUN 22 H, Creatinine 0.96, Estimated Creat Clear 39, Estimated GFR 56 L, Est GFR ( Amer) 68, Glucose 162 H, Calcium 8.6, Total Bilirubin 1.3 H, AST 7 L, ALT 28, Alkaline Phosphatase 82, Troponin I < 0.02, Total Protein 7.2, Albumin 3.3 L, Globulin 3.9 H, Albumin/Globulin Ratio 0.8 L, TSH 4.04 H 07/21/18 18:09: Specimen Source Right radial, O2 % 50, ABG pH 7.43, ABG pCO2 51.5 H, ABG pO2 174.2 H, ABG HCO3 33.7 H, ABG Total CO2 35.3 H, ABG O2 Saturation 99, ABG Base Excess 9.5 H, Alex Test Acceptable, Vent Rate 20, Tidal Volume Bipap 16/6, PEEP 10 07/21/18 20:37: POC Glucose 280 H 07/22/18 05:05: POC Glucose 340 H* 07/22/18 06:40: Sodium 138, Potassium 4.4, Chloride 97 L, Carbon Dioxide 37 H, Anion Gap 8.4, BUN 23 H, Creatinine 0.95, Estimated Creat Clear 66, Estimated GFR 57 L, Est GFR ( Amer) 68, Glucose 305 H D, Calcium 8.9 I & O for Last 24 hours: Intake & Output 07/19/18 07/20/18 07/21/18 07/22/18 11:59 11:59 11:59 11:59 Intake Total 360 / 360 Balance 360 / 360 Weight 205 lb 4 oz Microbiology Reports for the Last 24 Hours: Microbiology 07/21/18 15:25 Urine,Catheterized Urine Culture - Preliminary Gram Negative Rods Narrative: Patient is in bed, on facemask. Oxygen saturation is acceptable. Patient is responsive, talkative, pleasant. Lungs have rhonchi in both bases. Abdomen soft and nontender. Heart rate regular. Trace ankle edema. Trace sacral edema. Perfusion is good. Assessment and Plan (1) CHF (congestive heart failure) Current visit: Yes Status: Acute Category: Medical Code(s): I50.9 - Heart failure, unspecified (2) Acute respiratory failure with hypoxia and hypercapnia Current visit: Yes Status: Acute Category: Medical Code(s): J96.01 - Acute respiratory failure with hypoxia; J96.02 - Acute respiratory failure with hypercapnia (3) Pneumonia Current visit: No Status: Acute Category: Medical Code(s): J18.9 - Pneumonia, unspecified organism - Assessment and plan all Dx Assessment and Plan for all problems:: Plan will be to admit to hospital as noted. Continue oxygen support. Patient is responded briskly to IV Lasix. Echocardiogram today given her evidence of CHF on chest x-ray and BNP levels. Adjust medications as indicated. Continue IV antibiotics.
--- NOTE | 2018-07-22 09:42 | Pharmacy Consult Notes ---
[facility] Pharmacy VTE Monitoring - Patient Demographics Admission date: 07/21/18 Report Date: 07/22/18 Time: 09:42 Allergies/Adverse Reactions: Patient Allergies Sulfa (Sulfonamide Antibiotics) [SULFA (SULFONAMIDE ANTIBIOTICS)] Allergy (Unknown, Verified 04/13/18 13:12) I-RASH Height: 1.63 m Weight: 93.1 kg Patient Problems: Current Active Problems (Updated 07/21/18 @ 17:11 by Donato Schultz MD) Acute respiratory failure with hypoxia and hypercapnia (Acute) - VTE Risk Labs: VTE Related Lab Results Hgb 9.8 g/dL (12.2-16.2) L 07/21/18 15:20 Hct 31.9 % (37.0-47.0) L 07/21/18 15:20 Plt Count 137 K/mm3 (142-424) L 07/21/18 15:20 BUN 23 mg/dL (7-18) H 07/22/18 06:40 Creatinine 0.95 mg/dL (0.55-1.02) 07/22/18 06:40 Estimated Creat Clear 66 mL/min (50-200) 07/22/18 06:40 - Prophylaxis VTE Prophylaxis Ordered?: Yes Types of VTE Prophylaxis: Pharmacological Pharmacologic Type: Other (ELIQUIS) - VTE Diagnosis Confirmed Treatment or plan recommended: Continue Current Treatment
--- NOTE | 2018-07-22 15:57 | Cardiology Report ---
PROCEDURE: 2-D M-mode and color Doppler study INDICATIONS FOR THE TEST: Chest pain COPD Heart Murmur Tobacco SmokingEX Palpitations Fatigue Syncope Edema HypertensionXDiabetes Mellitus Rheumatic Fever SOBXDOEXObesityXHyperlipidemia Family History HD Additional History CHF,LVH PATIENT INFORMATION HEIGHT: 64 WEIGHT: GENDER: Female B/P: 2-D/M-MODE INTERPRETATION: 2-D MEASUREMENTS OBSERVED VALUES IN CMS Right Ventricular Dimension (RVDd) 2.1 Interventricular Septum (Thickness)(IVsd) 1.4 Left Ventricular Internal Dimensions(LVIDd) 5.2 Left Ventricular Posterior Wall (Thickness)(LVPWd) 1.2 Aortic Root 2.7 Aortic Cusp Separation 1.7 Left Atrial Dimensions (LAD) 4.0 2D 1. Left atrium is mildly enlarged, left ventricle is normal size, mild concentric left ventricular hypertrophy, visually estimated ejection fraction 55% with no regional wall motion abnormality. 2. The right atrium is mildly enlarged, right ventricle is normal size and contractility. 3. The aortic valve is thickened and calcified leaflet continue to display good mobility. 4. The mitral valve has mitral calcification, there is no mitral stenosis 5. The tricuspid valve is grossly normal. 6. The pulmonic valve is poorly visualized. 7. No significant pericardial effusion noted. DOPPLER INTERROGATION: Doppler interrogation of the aortic, mitral and tricuspid valvular presence of mild mitral and tricuspid regurgitation, tricuspid regurgitation jet velocity is inadequate for calculation of the right ventricular systolic pressure, diastolic parameters are inconclusive. CONCLUSION: 1. Mildly enlarged left atrium, normal left ventricular size, mild concentric left ventricular hypertrophy, visually estimated ejection fraction 55% with no regional wall motion abnormality, diastolic parameters are inconclusive. 2. Mild mitral and tricuspid regurgitation 3. No significant pericardial effusion noted.
[2018-07-22 18:20] LABS: ABG Base Excess 12.1 mmol/L (-2.4-2.3); ABG HCO3 35.5 mmhg (22.0-26.0); ABG Oxygen Saturation 88 % (90-100); ABG PCO2 48.6 mmhg (35.0-45.0); ABG PH 7.48 mmol/L (7.35-7.45); ABG PO2 53.9 mmhg (80-100)
[2018-07-22 18:21] LABS: Allen's Test Acceptable
--- NOTE | 2018-07-22 22:50 | Discharge Summary ---
General - General Admission date:: 07/21/18 Discharge date: 07/23/18 HPI HPI: 78-year-old white male, resident of local [place] [facility], with history of CHF exacerbations who was brought to the emergency department with respiratory insufficiency, hypoxia and worsening mental status changes. In the emergency department was found to have respiratory acidosis, evidence of fluid overload and pneumonia, admitted to hospital on BiPAP support, with diuretics. This morning she states she feels improved. Hospital Course Hospital Course: Admitted for acute on chronic hypoxemic respiratory failure. Echo obtained to rule out CHF, normal ejection fraction seen. Otherwise unremarkable echocardiogram. Was initiated on diuretics and antibiotics. Found at time of admission to additionally have a urinary tract infection. Urine culture speciated ESBL bacteria. Transition to Invanz for 7-day course, received first dose on day of discharge. Patient improved with diuresis, tolerating baseline oxygen requirement. Good p.o. intake, remained afebrile, mentating appropriately. No complaints on day of discharge. Medically stable for discharge back to her [place] [facility] Objective Vital signs: Temp Pulse Resp BP Pulse Ox 98.6 F 83 20 157/75 H 93 L 07/22/18 20:00 07/22/18 20:00 07/22/18 20:00 07/22/18 20:00 07/22/18 20:00 Narrative: Patient is in bed, on nasal cannula oxygen. 2 L. At baseline. No acute distress. Lungs have coarse crackles in bilateral bases, good air movement bilaterally Abdomen soft and nontender, quarter size firm nodule mid abdomen where her previous hernia was located, nontender, nonerythematous.. Heart rate regular, Trace ankle edema. Trace sacral edema. Perfusion is good. Results Labs on day of discharge: Labs from last 24 hours 07/22/18 07/22/18 07/22/18 18:18 16:56 12:04 Specimen Source Right radial O2 % 28%, 2lpm nc ABG pH 7.48 H ABG pCO2 48.6 H ABG pO2 53.9 L ABG HCO3 35.5 H ABG Total CO2 37.0 H ABG O2 Saturation 88 L ABG Base Excess 12.1 H Alex Test Acceptable Sodium Potassium Chloride Carbon Dioxide Anion Gap BUN Creatinine Estimated Creat Clear Estimated GFR Est GFR ( Amer) Glucose POC Glucose 375 H* 396 H* Calcium Urine Color Urine Appearance Urine pH Ur Specific [place] Urine Protein Urine Glucose (UA) Urine Ketones Urine Blood Urine Nitrate Urine Bilirubin Urine Urobilinogen Ur Leukocyte Esterase Urine WBC Ur Squamous Epith Cells Urine Bacteria 07/22/18 07/22/18 07/21/18 06:40 05:05 20:37 Specimen Source O2 % ABG pH ABG pCO2 ABG pO2 ABG HCO3 ABG Total CO2 ABG O2 Saturation ABG Base Excess Alex Test Sodium 138 Potassium 4.4 Chloride 97 L Carbon Dioxide 37 H Anion Gap 8.4 BUN 23 H Creatinine 0.95 Estimated Creat Clear 66 Estimated GFR 57 L Est GFR ( Amer) 68 Glucose 305 H D POC Glucose 340 H* 280 H Calcium 8.9 Urine Color Urine Appearance Urine pH Ur Specific [place] Urine Protein Urine Glucose (UA) Urine Ketones Urine Blood Urine Nitrate Urine Bilirubin Urine Urobilinogen Ur Leukocyte Esterase Urine WBC Ur Squamous Epith Cells Urine Bacteria 07/21/18 15:25 Specimen Source O2 % ABG pH ABG pCO2 ABG pO2 ABG HCO3 ABG Total CO2 ABG O2 Saturation ABG Base Excess Alex Test Sodium Potassium Chloride Carbon Dioxide Anion Gap BUN Creatinine Estimated Creat Clear Estimated GFR Est GFR ( Amer) Glucose POC Glucose Calcium Urine Color Yellow Urine Appearance Clear Urine pH 6.0 Ur Specific [place] >= 1.030 Urine Protein Trace Urine Glucose (UA) Trace Urine Ketones Negative Urine Blood Trace-i Urine Nitrate Positive Urine Bilirubin Negative Urine Urobilinogen 0.2 Ur Leukocyte Esterase Negative Urine WBC 3-5 Ur Squamous Epith Cells Occasional Urine Bacteria 4+ Preliminary micro results at discharge 07/21/18 15:25 Urine Culture - Preliminary Urine,Catheterized Gram Negative Rods DS: Diagnosis - Discharge Diagnosis (1) Acute respiratory failure with hypoxia and hypercapnia Status: Acute Problem details: Chronic, improved significantly. Continue antibiotics. Improved as well with diuresis. At baseline oxygen requirement (2) Pneumonia Status: Acute (3) Urinary tract infection Status: Acute Problem details: Positive for ESBL E. coli. Transition to Invanz at time of discharge. Continue for total of 7 days. First dose to administered on day of discharge. Will require 6 more days of IM Invanz per med rec after discharge back to [facility] (4) Hyperglycemia due to type 2 diabetes mellitus Status: Chronic Problem details: Required sliding scale during admission. Resume home insulin regimen at time of discharge Discharge Plan - Patient Discharge Instructions ACTIVITY: Continue current activity DIET: continue same diet Patient Instructions: DI for Heart Failure, Respiratory Failure - Follow up Plan Disposition: er Intermediate Care [facility] Home Medications: Home Medications Medication Instructions Recorded Confirmed Type Amlodipine Besylate [Amlodipine 10 mg PO DAILY 06/01/17 07/21/18 History 10mg Tab] Hydrocod/Acet 5/325 mg [[place] 1 tab PO Q4HP PRN 06/01/17 07/21/18 History 5/325mg tablet] Lactulose [Enulose] 10 gm PO DAILY PRN 06/01/17 07/22/18 History Loratadine 10 mg PO DAILY 06/01/17 07/21/18 History Multivitamin with Minerals 1 each PO DAILY 06/01/17 07/21/18 History [Multivitamins with Minerals] Ondansetron HCl [Zofran 4mg Tab] 4 mg PO Q6HP PRN 06/01/17 07/21/18 History Polyethylene Glycol 3350 [Miralax 17 gm PO DAILY 06/01/17 07/21/18 History 17gm Packet] diazePAM [Valium] 1 mg PO HS 06/01/17 07/22/18 History metoprolol tartrate 25 mg tablet 25 mg PO BID 12/22/17 07/21/18 History Amiodarone HCl [Amiodarone 100mg 200 mg PO DAILY 07/21/18 07/21/18 History Tab] Apixaban [Eliquis 5mg tab] 5 mg PO BID 07/21/18 07/21/18 History Insulin Glargine,Hum.rec.anlog 70 unit SQ HS 07/21/18 07/21/18 History [Lantus Insulin 100units/mL 10mL vial] Linagliptin [Tradjenta 5mg tablet] 5 mg PO DAILY 07/21/18 07/21/18 History Acetaminophen [8 Hour Pain Relief] 650 mg PO Q6HP PRN 07/22/18 07/22/18 History Calcium Carbonate/Vitamin D3 2 each PO DAILY 07/22/18 07/22/18 History [Oyster [place]+D 250 mg Tablet] Escitalopram Oxalate 10 mg PO DAILY 07/22/18 07/22/18 History Gabapentin [Gabapentin 300mg Cap] 300 mg PO TID 07/22/18 07/22/18 History Insulin Lispro [HumaLOG 100 2 unit SQ DIRECTED 07/22/18 07/22/18 History units/mL 3mL vial (SSI)] Melatonin 5 mg PO HS 07/22/18 07/22/18 History Omeprazole [Omeprazole 40mg 40 mg PO HS 07/22/18 07/22/18 History Capsule] Ertapenem Sodium [Invanz 1gm Vial] 1 gm IM Q24H 6 Days #6 vial 07/23/18 Rx predniSONE [Deltasone 10mg tablet] 40 mg PO DAILY 3 Days #12 tab 07/23/18 Rx Prescriptions/Medication Reconciliation: New predniSONE [Deltasone 10mg tablet] 40 mg PO DAILY 3 Days #12 tab Ertapenem Sodium [Invanz 1gm Vial] 1 gm IM Q24H 6 Days #6 vial Aspirin [Aspirin 325mg Tab] 325 mg PO DAILY tablet Continued metoprolol tartrate 25 mg tablet 25 mg PO BID Polyethylene Glycol 3350 [Miralax 17gm Packet] 17 gm PO DAILY Ondansetron HCl [Zofran 4mg Tab] 4 mg PO Q6HP PRN PRN Reason: Nausea/vomiting Multivitamin with Minerals [Multivitamins with Minerals] 1 each PO DAILY Loratadine 10 mg PO DAILY Lactulose [Enulose] 10 gm PO DAILY PRN PRN Reason: Constipation diazePAM [Valium] 1 mg PO HS Amiodarone HCl [Amiodarone 100mg Tab] 200 mg PO DAILY Linagliptin [Tradjenta 5mg tablet] 5 mg PO DAILY Insulin Glargine,Hum.rec.anlog [Lantus Insulin 100units/mL 10mL vial] 70 unit SQ HS Melatonin 5 mg PO HS Gabapentin [Gabapentin 300mg Cap] 300 mg PO TID Escitalopram Oxalate 10 mg PO DAILY Calcium Carbonate/Vitamin D3 [[place]+D 250 mg Tablet] 2 each PO DAILY Acetaminophen [8 Hour Pain Relief] 650 mg PO Q6HP PRN PRN Reason: PAIN/FEVER Hydrocod/Acet 5/325 mg [[place] 5/325mg tablet] 1 tab PO Q4HP PRN PRN Reason: PAIN Amlodipine Besylate [Amlodipine 10mg Tab] 10 mg PO DAILY Apixaban [Eliquis 5mg tab] 5 mg PO BID Omeprazole [Omeprazole 40mg Capsule] 40 mg PO HS Insulin Lispro [HumaLOG 100 units/mL 3mL vial (SSI)] 2 unit SQ DIRECTED
[2018-07-23 07:19] LABS: Basophils % 0.1 % (0.1-2.0); Hematocrit 33.3 % (37.0-47.0); Hemoglobin 10.3 g/dL (12.2-16.2); Lymphocytes # 0.5 K/mm3 (0.7-4.5); Lymphocytes % 5.4 % (10-50); Mean Corpuscular HGB Conc 30.8 g/dL (31.8-35.4); Mean Corpuscular Hemoglobin 26.8 pg (27.0-31.2); Mean Corpuscular Volume 87.1 fl (81-99); Mean Platelet Volume 9.9 fl (7.4-10.4); Monocytes # 0.4 K/mm3 (0.1-1.0); Monocytes % 4.6 % (1.7-9.3); Neutrophils # 7.7 K/mm3 (1.8-7.8); Neutrophils % 89.8 % (37.0-80.0); Platelet Count 143 K/mm3 (142-424); Red Blood Count 3.83 M/mm3 (4.20-5.40); Red Cell Distribution Width 18.2 % (11.5-17.5); White Blood Count 8.6 K/mm3 (4.8-10.8)
[2018-07-23 07:49] LABS: Anion Gap 9.3 mEq/L (5-15); Calcium 9.2 mg/dL (8.5-10.1); Potassium 4.3 mmoL/L (3.5-5.1)
[2018-07-23 10:54] LABS: Hypochromasia 2+; Lymphocytes % 5 % (10-50); Monocytes % 4 % (2-9); Neutrophils % 90 % (42-76); Total Cells Counted 100
[2018-07-23 10:55] LABS: Anisocytosis 2+; Tear Drop Cells 1+
== END 2018-07-23 10:48 | DRG 189 ==
LOC: ER 14:46 → 2ND 17:14
PROVIDERS: ADMIT Emergency Medicine; ATTEND Internal Medicine Adolescent Medicine
CPT/HCPCS: 36415; 70450; 71010; 71045; 80048; 80053; 81001; 82803; 82962; 83605; 83880; 84443; 84484; 85007; 85025; 87040; 87086; 87088; 87186; 93005; 93306; 94640; 94660; 94761; 96365; 96375; 99285; J1335; J1956

== ENCOUNTER 2018-08-21 21:03 | Inpatient (IN) | payer MEDICARE, MEDICAID, SELFPAY ==
[2018-08-21] VITALS (7 sets, daily range): BP systolic 96–115; BP diastolic 38–60; PULSE 47–57; RESP 16–20; TEMP 36.6–37.7; O2SAT 91–99; BMI 30.2; BMI 33.8
--- NOTE | 2018-08-21 21:24 | XR_ITS ---
XR chest portable PCXR-. August 21, 2018 : At 950 p.m. HISTORY: ITS.REASON: bradycardia ORDERING PHYSICIAN: Freddy Faustin MD PATIENT AGE: 78 years Technique: AP portable semierect chest COMPARISON: 08/04/2018 portable upright chest 07/21/2018 FINDINGS: Bilateral airspace disease. Most evident at bases bilaterally. Right lung. Infiltrate most evident at the right infrahilar region and towards right lower lobe, right lung base. Mild accentuation of markings toward right upper lobe may reflect minimal infiltrate or vascular engorgement here. Left lung . Moderately dense infiltrate left lung base partially obscures hemidiaphragm.. This appears more evident and pronounced than August 04, 2018 CXR Left upper lung field is clear. Mild cardiomegaly. Calcified ectatic aortic knob. Chest wall unremarkable. No pneumothorax no definitive pleural effusion IMPRESSION:... ... 1. Bib[place] infiltrate infiltrates. LLL Infiltrate-partial obscuring left hemidiaphragm Right lung. Moderate Infiltrate right lung base.. Possible minimal infiltrate right upper lobe .- Vs mild vascular engorgement/congestion
[2018-08-21 21:37] LABS: Basophils % 0.3 % (0.1-2.0); Eosinophils # 0.1 K/mm3 (0.0-0.4); Eosinophils % 0.9 % (0.1-12.0); Hematocrit 31.6 % (37.0-47.0); Hemoglobin 9.4 g/dL (12.2-16.2); Mean Corpuscular HGB Conc 29.7 g/dL (31.8-35.4); Mean Corpuscular Volume 90.8 fl (81-99); Mean Platelet Volume 10.3 fl (7.4-10.4); Monocytes # 0.5 K/mm3 (0.1-1.0); Neutrophils # 9.1 K/mm3 (1.8-7.8); Neutrophils % 84.8 % (37.0-80.0); Platelet Count 151 K/mm3 (142-424); Red Blood Count 3.47 M/mm3 (4.20-5.40); Red Cell Distribution Width 18.1 % (11.5-17.5); White Blood Count 10.7 K/mm3 (4.8-10.8)
[2018-08-21 21:37] LABS: ABG Base Excess 5.2 mmol/L (-2.4-2.3); ABG HCO3 32.7 mmhg (22.0-26.0); ABG Oxygen Saturation 83 % (90-100); ABG PH 7.23 mmol/L (7.35-7.45); ABG PO2 54.6 mmhg (80-100); ABG TCO2 35.2 mmhg (23-27)
[2018-08-21 21:38] LABS: ABG PCO2 79.7 mmhg (35.0-45.0); Allen's Test Y; Oxygen 4 %; Source R/R
[2018-08-21 21:43] LABS: Microscopic, Urine URINE MICROSCOPIC (MICROSCOPIC)
[2018-08-21 21:44] LABS: Appearance,Urine CLOUDY (Clear); Bilirubin,Urine Negative (Negative); Blood, Urine 1+ (Negative); Color,Urine YELLOW (Yellow); Glucose,Urine (UA) Negative (Negative); Ketones,Urine Negative (Negative); Leukocyte Esterase,Urine 2+ (Negative); Nitrate,Urine Negative (Negative); PH,Urine 5.5 (5.0-8.5); Protein,Urine 1+ (Negative); Specific Gravity, Urine >= 1.030 (1.005-1.030); Urobilinogen,Urine 0.2 EU/dl (0.2)
[2018-08-21 21:45] LABS: WBC,Urine TNTC #/hpf (0-3)
--- NOTE | 2018-08-21 21:46 | HMH.EDSOB ---
ED Disposition Clinical Impression: Acute respiratory failure with hypoxia and hypercapnia UTI (urinary tract infection) Qualifiers: Urinary tract infection type: site unspecified Hematuria presence: without hematuria Qualified Code(s): N39.0 - Urinary tract infection, site not specified Anemia Qualifiers: Anemia type: unspecified type Qualified Code(s): D64.9 - Anemia, unspecified Hyperglycemia due to type 2 diabetes mellitus Qualifiers: Diabetes mellitus rn long term care insulin use: unspecified alf insulin use status Qualified Code(s): E11.65 - Type 2 diabetes mellitus with hyperglycemia A-fib Qualifiers: Atrial fibrillation type: chronic Qualified Code(s): I48.2 - Chronic atrial fibrillation Disposition: Admitted as Observation Condition on Discharge: Fair Referrals: Saulo Farrell MD [Primary Care Provider] - - Critical Care Critical Care Time: No Attestation: On 08/21/18, the high probability of a clinically significant, sudden or life threatening deterioration of the following system(s) required my full and direct attention, intervention and personal management. The time I documented below is in addition to time spent performing reported procedures but includes the following listed in this critical care notation. Medical Decision Making - Medical Records Medical records reviewed: Yes: I reviewed the patient's medical records. - [place] Inquiry Pt receiving controlled substance: No Vital Signs: 08/21/18 21:03 Temperature 99.0 F Temperature Source Rectal Pulse Rate [Right Brachial] 47 L Respiratory Rate 20 Blood Pressure [Right Arm] 111/38 L Blood Pressure Mean [Right Arm] 62 Blood Pressure Source [Right Arm] Automatic Cuff Blood Pressure Position [Right Arm] Sitting 02 Sat by Pulse Oximetry 91 L Oxygen Delivery Method Nasal Cannula Oxygen Flow Rate (LPM) 2 - Lab Data Lab results reviewed: Yes: I reviewed the patient's lab results. Lab Results 08/21/18 21:22: Urine Color Yellow, Urine Appearance Cloudy, Urine pH 5.5, Ur Specific [place] >= 1.030, Urine Protein 1+, Urine Glucose (UA) Negative, Urine Ketones Negative, Urine Blood 1+, Urine Nitrate Negative, Urine Bilirubin Negative, Urine Urobilinogen 0.2, Ur Leukocyte Esterase 2+ A, Urine RBC 5-10, Urine WBC Tntc 08/21/18 21:22: WBC 10.7, RBC 3.47 L, Hgb 9.4 L, Hct 31.6 L, MCV 90.8, MCH 27.0, MCHC 29.7 L, RDW 18.1 H, Plt Count 151, MPV 10.3, Neut % (Auto) 84.8 H, Lymph % (Auto) 9.0 L, [place] % (Auto) 5.0, Eos % (Auto) 0.9, Baso % (Auto) 0.3, Neut # (Auto) 9.1 H, Lymph # (Auto) 1.0, [place] # (Auto) 0.5, Eos # (Auto) 0.1, Baso # (Auto) 0.0 08/21/18 21:22: Sodium 139, Potassium 5.3 H, Chloride 102, Carbon Dioxide 34 H, Anion Gap 8.3, BUN 18, Creatinine 1.25 H, Estimated Creat Clear 47, Estimated GFR 41 L, Est GFR ( Amer) 50 L, Glucose 248 H, Calcium 8.0 L, Total Bilirubin 1.1 H, AST 45 H, ALT 54, Alkaline Phosphatase 118 H, Troponin I < 0.02, Total Protein 5.8 L, Albumin 2.9 L, Globulin 2.9, Albumin/Globulin Ratio 1.0 L 08/21/18 21:36: Specimen Source R/r, O2 % 4, ABG pH 7.23 L*, ABG pCO2 79.7 H, ABG pO2 54.6 L, ABG HCO3 32.7 H, ABG Total CO2 35.2 H, ABG O2 Saturation 83 L*, ABG Base Excess 5.2 H, Alex Test Y Result diagrams: 08/21/18 21:22 08/21/18 21:22 Orders (Tests/Meds): ED MEDICATIONS Discontinued Medications Generic Name Dose Route Start Last Admin Trade Name Freq PRN Reason Stop Dose Admin Methylprednisolone Sodium Succinate 125 mg 08/21/18 21:49 08/21/18 21:56 Solu-Medrol 125mg/2ml Vial IV 08/21/18 21:50 125 mg ONCE ONE Administration ORDERS Category Date Time Status XR chest portable Stat Exams 08/21/18 21:24 Taken Lactic Acid Stat Lab 08/21/18 22:32 Ordered Blood Culture Stat Micro 08/21/18 22:32 Ordered Urine Culture Stat Micro 08/21/18 21:22 Received ABG [Arterial Blood Gas] Stat RT 08/21/18 21:24 Ordered - Radiology Data #1 Image(s): Chest Image Reviewed: Yes I reviewed the pat
[2018-08-21 21:49] LABS: Alanine Aminotransferase 54 U/L (12-78); Albumin Level 2.9 gm/dL (3.4-5.0); Alkaline Phosphatase 118 U/L (46-116); Anion Gap 8.3 mEq/L (5-15); Aspartate Amino Transferase 45 U/L (15-37); Bilirubin,Total 1.1 mg/dL (0.2-1.0); Blood Urea Nitrogen 18 mg/dL (7-18); Carbon Dioxide 34 mmol/L (21.0-32.0); Chloride 102 mmol/L (98-107); Creatinine Clearance Estimated 47 mL/min (50-200); Creatinine,Serum 1.25 mg/dL (0.55-1.02); Estimated Glomerular Filt Rate 41 ml/min (>60); GFR (African American) 50 ML/MIN (>60); Globulin 2.9 gm/dl (1.3-3.2); Glucose 248 mg/dL (74-106); Potassium 5.3 mmoL/L (3.5-5.1); Sodium 139 mmol/L (136-145); Total Protein,Serum 5.8 gm/dL (6.4-8.2); Troponin I < 0.02 ng/ml (0.00-0.06)
--- NOTE | 2018-08-21 21:50 | PC.NURSE ---
pt sao2 remains at 80% on 4lo2 bnc. abg results are critical and were reported to dr villanueva by respiratory therapist will. rt placing patient on bipap at this time. sao2 increased to 99% after initiation. pt continues to sleep soundly but responds and awakens to verbal stimuli and is a&ox4 during conversation. will continue to monitor for change.
--- NOTE | 2018-08-21 22:30 | PC.NURSE ---
Addendum entered by Tova Gonzalez RN 08/21/18 23:04: correction, dr garrett. Original Note: dr villanueva consulting with dr sung concerning patient.
[2018-08-21 23:00] LABS: Lactic Acid 1.3 mmol/L (0.4-2.0)
--- NOTE | 2018-08-21 23:23 | PC.NURSE ---
ARRIVED TO FLOOR, PER STRETCHER, FROM ED
[2018-08-22] VITALS (20 sets, daily range): BP systolic 113–146; BP diastolic 48–73; PULSE 50–92; RESP 17–23; TEMP 36.6–36.9; O2SAT 88–98; BMI 33.8
[2018-08-22 02:28] LABS: Troponin I < 0.02 ng/ml (0.00-0.06)
[2018-08-22 03:58] LABS: ABG Base Excess 1.9 mmol/L (-2.4-2.3); ABG HCO3 28.9 mmhg (22.0-26.0); ABG Oxygen Saturation 90 % (90-100); ABG PH 7.26 mmol/L (7.35-7.45); ABG PO2 66.1 mmhg (80-100); ABG TCO2 30.9 mmhg (23-27)
[2018-08-22 03:59] LABS: Allen's Test Y; Oxygen 40 %; Pressure Support 7; Source R/R; Vent Rate 20
[2018-08-22 04:00] LABS: ABG PCO2 65.6 mmhg (35.0-45.0)
[2018-08-22 05:12] LABS: Basophils % 0.1 % (0.1-2.0); Hematocrit 32.3 % (37.0-47.0); Hemoglobin 9.6 g/dL (12.2-16.2); Lymphocytes # 0.4 K/mm3 (0.7-4.5); Lymphocytes % 5.1 % (10-50); Mean Corpuscular HGB Conc 29.7 g/dL (31.8-35.4); Mean Corpuscular Hemoglobin 27.1 pg (27.0-31.2); Mean Corpuscular Volume 91.4 fl (81-99); Mean Platelet Volume 9.6 fl (7.4-10.4); Monocytes # 0.3 K/mm3 (0.1-1.0); Monocytes % 4.1 % (1.7-9.3); Neutrophils # 6.8 K/mm3 (1.8-7.8); Neutrophils % 90.7 % (37.0-80.0); Platelet Count 123 K/mm3 (142-424); Red Blood Count 3.53 M/mm3 (4.20-5.40); White Blood Count 7.5 K/mm3 (4.8-10.8)
[2018-08-22 05:14] LABS: MANUAL DIFFERENTIAL MANUAL DIFFERENTIAL (MANUAL DIFF)
[2018-08-22 05:26] LABS: Anion Gap 8.5 mEq/L (5-15); Blood Urea Nitrogen 22 mg/dL (7-18); Calcium 8.2 mg/dL (8.5-10.1); Carbon Dioxide 34 mmol/L (21.0-32.0); Chloride 100 mmol/L (98-107); Creatinine Clearance Estimated 51 mL/min (50-200); Creatinine,Serum 1.29 mg/dL (0.55-1.02); Estimated Glomerular Filt Rate 40 ml/min (>60); GFR (African American) 48 ML/MIN (>60); Glucose 357 mg/dL (74-106); Potassium 5.5 mmoL/L (3.5-5.1); Sodium 137 mmol/L (136-145); Troponin I < 0.02 ng/ml (0.00-0.06)
[2018-08-22 05:45] LABS: Lymphocytes % 3 % (10-50); Neutrophils % 89 % (42-76); Total Cells Counted 100
[2018-08-22 05:46] LABS: Anisocytosis 1+; Hypochromasia 2+; Platelet Estimate Slight Decrease; Poikilocytosis 1+; Polychromasia 1+
[2018-08-22 06:47] LABS: POC Glucose,Bedside 362 (70-110)
--- NOTE | 2018-08-22 06:50 | PC.NURSE ---
PT CONTINUES ON BIPAP, 40% OXYGEN. IV SECURE AND PATENT INFUSING NS@ 50/HR; OTHER IV TO SALINE LOCK. PT A-FIB ON MONITOR, THIS IS NOT NEW. PT WOKE UP ONCE DISORIENTED. ALERT AND ORIENTED. PT JUST REPORTED A RESENDEZ. PT HAS TYLENOL. BREATH SOUNDS SCATTERED WHEEZES, DIMINISHED KARSTEN. BASES. NO COUGH NOTED. CONTINUES ON DUO NEBS. NO C/O NAUSEA. PT STABLE. WILL CONTINUE TO MONITOR. REPORT TO BE GIVEN TO ONCOMING NURSE.
--- NOTE | 2018-08-22 07:25 | PC.NURSE ---
REPORTED TO Niya ACEVES
--- NOTE | 2018-08-22 08:43 | HMH.HP ---
*Admission Date: 08/21/18 *Chief complaint: Altered mental status *History of present illness: Ms. Zhang is a pleasant 78-year-old female with some mild dementia. She presented last night to the ER from [facility] via EMS due to altered mental status and confusion. Patient was unaware that she came to the hospital and was confused as to where she was this morning. History obtained from calling long-term and speaking to AMA. She states the patient became obtunded yesterday after poor compliance with her BiPAP. Was brought to the ER for further management. On arrival found to be hypercarbic with questionable finding of pneumonia on imaging. Initiated on antibiotics and BiPAP. Admitted to medicine for further management. On interview this morning the patient is very pleasant but confused and nervous as she was not sure where she was or why she was at the hospital. She states she is feeling better this morning and knows who she is. Is wanting to talk with her son about her status. She has been wearing her BiPAP and shown significant improvement in her mental status. Sepsis criteria was met so cultures are pending. Denies any nausea, vomiting, chest pain, worsening dyspnea from baseline. Denies weakness or focal deficits. [facility] History I have reviewed the patient's past medical history: Yes Medical History: Reports:: Anxiety, Asthma, Atrial Fibrillation, Coronary Artery Disease, Depression, Diabetes Mellitus Type 2, Gastroesophageal Reflux Disease(GERD), Hyperlipidemia, Hypertension Denies:: Cancer, Diabetes Mellitus Type 1, Home Oxygen, Internal Pacemaker, MRSA, Seizures *Have you ever received a pneumonia vaccine?: Yes *Have you received a flu vaccine this season?: Yes Other Medical History: Reports: Anemia, Other. Denies: Blood Transfusion Reaction Laterality Cases: Left: Carpal Tunnel Release Other Surgeries: Yes: Appendectomy, Cholecystectomy, Hernia Repair, Hysterectomy-Total, Other (spine surgery). No: Pacemaker Amputation: No Fractures: Yes (SPINAL COMPRESSION FX) - *Social History Smoking Status: Former smoker Tobacco Type: cigarettes # Packs/Day (cigarettes): 1 #Yrs smoked (if former smoker): 32 Alcohol Intake: never Substance Use Type: denies use *Occupational Status:: retired Housing: long-term Household Members: caregiver *Travel in the last 8 weeks: None - Psychiatric History Expresses thoughts of harming self/others: None Suicide Plan Description: No Plan Pschychiatric History:: Reports:: Anxiety, Depression Family Hx:: Unable to obtain, Diabetes Review of Systems - Review of Systems Review of systems:: pertinent systems reviewed and negative unless documented below - *Neurologic Reports weakness, Denies seizure-like activity Meds Home Medications Medication Instructions Recorded Confirmed Type Amlodipine Besylate [Amlodipine 10 mg PO DAILY 06/01/17 08/21/18 History 10mg Tab] Hydrocod/Acet 5/325 mg [Oblong 1 tab PO Q4HP PRN 06/01/17 08/22/18 History 5/325mg tablet] Lactulose [Enulose] 10 gm PO DAILY PRN 06/01/17 08/22/18 History Loratadine 10 mg PO DAILY 06/01/17 08/21/18 History Multivitamin with Minerals 1 each PO DAILY 06/01/17 08/22/18 History [Multivitamins with Minerals] Ondansetron HCl [Zofran 4mg Tab] 4 mg PO Q6HP PRN 06/01/17 08/22/18 History Polyethylene Glycol 3350 [Miralax 17 gm PO DAILYP PRN 06/01/17 08/22/18 History 17gm Packet] diazePAM [Valium] 1 mg PO HS 06/01/17 08/22/18 History metoprolol tartrate 25 mg tablet 25 mg PO BID 12/22/17 08/21/18 History Amiodarone HCl [Amiodarone 100mg 200 mg PO DAILY 07/21/18 08/21/18 History Tab] Apixaban [Eliquis 5mg tab] 5 mg PO BID 07/21/18 08/21/18 History Insulin Glargine,Hum.rec.anlog 70 unit SQ HS 07/21/18 08/22/18 History [Lantus Insulin 100units/mL 10mL vial] Linagliptin [Tradjenta 5mg tablet] 5 mg PO DAILY 07/21/18 08/21/18 History Acetaminophen [8 Hour Pain Relief] 650 mg PO Q6HP
--- NOTE | 2018-08-22 10:34 | P.CONPHA_ITS ---
[facility] Pharmacy VTE Monitoring - Patient Demographics Admission date: 08/22/18 Report Date: 08/22/18 Time: 10:33 Allergies/Adverse Reactions: Patient Allergies Sulfa (Sulfonamide Antibiotics) [SULFA (SULFONAMIDE ANTIBIOTICS)] Allergy (Unknown, Verified 04/13/18 13:12) I-RASH Height: 1.65 m Weight: 92.334 kg Patient Problems: Current Active Problems (Updated 08/22/18 @ 08:43 by Jair García MD) Acute respiratory failure with hypoxia and hypercapnia (Acute) Urinary tract infection (Acute) Hyperglycemia due to type 2 diabetes mellitus (Chronic) Anemia (Acute) A-fib (Acute) - VTE Risk Labs: VTE Related Lab Results Hgb 9.6 g/dL (12.2-16.2) L 08/22/18 05:00 Hct 32.3 % (37.0-47.0) L 08/22/18 05:00 Plt Count 123 K/mm3 (142-424) L 08/22/18 05:00 BUN 22 mg/dL (7-18) H 08/22/18 05:00 Creatinine 1.29 mg/dL (0.55-1.02) H 08/22/18 05:00 Estimated Creat Clear 51 mL/min (50-200) 08/22/18 05:00 - Prophylaxis Types of VTE Prophylaxis: Pharmacological (ELIQUIS RESTARTED PAT OWN MED)
--- NOTE | 2018-08-22 10:34 | HMH.PHAINT ---
MED REC PATIENT RESIDENTIAL MED LIST COMPARED TO MED LIST HERE. MED LIST CORRECTED.
[2018-08-22 12:41] LABS: POC Glucose,Bedside 404 (70-110)
--- NOTE | 2018-08-22 15:20 | PC.NURSE ---
COURTESY ROUND: ICE WATER WAS GIVEN & TRASH WAS TAKEN OUT. PATIENT WAS ALSO PULLED UP IN BED & TURNED ON (L) SIDE PER MYSELF & ANNE-MARIE
[2018-08-22 17:31] LABS: POC Glucose,Bedside 380 (70-110)
--- NOTE | 2018-08-22 18:03 | PC.NURSE ---
Pt has rested most of the shift. Confusion was notably worse following being on nasal cannula for breakfast and lunch. pt was placed back on bipap for approx 2 hrs and some of the confusion seemed to have resolved. pt remained in bed this shift. per SRNA pt did have a large BM this am. lung sounds are extremely diminished almost absent in the left lower lobe. in the right lower lobe lung sounds noted to have crackles. but otherwise slightly diminished throughout. bowel sounds are active in all quads. pt needs continual reminders about how to use her call light, and reminders why she is in the hospital. will continue to monitor.
--- NOTE | 2018-08-22 19:30 | PC.NURSE ---
humidification added to o2 per md request
[2018-08-22 21:02] LABS: POC Glucose,Bedside 323 (70-110)
[2018-08-23] VITALS (29 sets, daily range): BP systolic 108–130; BP diastolic 47–87; PULSE 50–100; RESP 16–23; TEMP 36.3–37.1; O2SAT 88–98; BMI 34.0
--- NOTE | 2018-08-23 04:48 | PC.NURSE ---
PT SLEPT LONG INTERVALS THIS SHIFT. NO C/O PAIN OR DISCOMFORT. BOTH IV'S SECURE AND PATENT. CONTINUES RECEIVING NS@50/HR WELL IV ABX. PT REMINDED STILL NEED SPUTUM, CUP ON BEDSIDE TABLE. PT HAS NO COUGH. RESPIRATIONS EVEN AND UNLABORED AT THIS TIME. BREATH SOUNDS IN LLL DIMINISHED AND RLL DIMINISHED WITH FINE CRACKLES. CURRENTLY ON BIPAP 40% OXYGEN WHILE ASLEEP. CONTINUES TO MAINTAIN OXYGEN SATS WITHIN PARAMETERS SET BY DR. MYERS YESTERDAY TO KEEP SATS >92% WHILE AWAKE AND >88% WHILE ASLEEP. PT HAS ORDER FOR A.M. LABS. PT STABLE. WILL CONTINUE TO MONITOR. REPORT TO BE GIVEN TO ONCOMING NURSE.
[2018-08-23 06:10] LABS: POC Glucose,Bedside 352 (70-110)
[2018-08-23 06:58] LABS: Basophils % 0.2 % (0.1-2.0); Hematocrit 31.7 % (37.0-47.0); Hemoglobin 9.2 g/dL (12.2-16.2); Lymphocytes # 0.6 K/mm3 (0.7-4.5); Lymphocytes % 7.6 % (10-50); Mean Corpuscular Hemoglobin 27.2 pg (27.0-31.2); Mean Corpuscular Volume 93.6 fl (81-99); Mean Platelet Volume 9.8 fl (7.4-10.4); Monocytes # 0.3 K/mm3 (0.1-1.0); Monocytes % 4.5 % (1.7-9.3); Neutrophils # 6.8 K/mm3 (1.8-7.8); Neutrophils % 87.7 % (37.0-80.0); Platelet Count 142 K/mm3 (142-424); Red Blood Count 3.38 M/mm3 (4.20-5.40); White Blood Count 7.7 K/mm3 (4.8-10.8)
[2018-08-23 07:07] LABS: MANUAL DIFFERENTIAL MANUAL DIFFERENTIAL (MANUAL DIFF)
--- NOTE | 2018-08-23 07:21 | PC.NURSE ---
REPORT GIVEN TO Allison PERALES
[2018-08-23 07:25] LABS: Alanine Aminotransferase 39 U/L (12-78); Albumin Level 2.9 gm/dL (3.4-5.0); Albumin/Globulin Ratio 0.9 (1.1-1.8); Alkaline Phosphatase 98 U/L (46-116); Aspartate Amino Transferase 9 U/L (15-37); Bilirubin,Total 0.5 mg/dL (0.2-1.0); Blood Urea Nitrogen 29 mg/dL (7-18); Calcium 7.8 mg/dL (8.5-10.1); Chloride 101 mmol/L (98-107); Creatinine Clearance Estimated 44 mL/min (50-200); Creatinine,Serum 1.48 mg/dL (0.55-1.02); Estimated Glomerular Filt Rate 34 ml/min (>60); GFR (African American) 41 ML/MIN (>60); Globulin 3.4 gm/dl (1.3-3.2); Glucose 341 mg/dL (74-106); Total Protein,Serum 6.3 gm/dL (6.4-8.2)
[2018-08-23 07:46] LABS: Anion Gap 6.4 mEq/L (5-15); Carbon Dioxide 37 mmol/L (21.0-32.0); Sodium 138 mmol/L (136-145)
[2018-08-23 07:50] LABS: Potassium 6.4 mmoL/L (3.5-5.1)
[2018-08-23 08:04] LABS: Anisocytosis 1+; Lymphocytes % 7 % (10-50); Monocytes % 4 % (2-9); Neutrophils % 84 % (42-76); Platelet Estimate Normal; Total Cells Counted 100
[2018-08-23 08:17] LABS: ABG Base Excess 9.4 mmol/L (-2.4-2.3); ABG HCO3 38.3 mmhg (22.0-26.0); ABG Oxygen Saturation 93 % (90-100); ABG PO2 78.2 mmhg (80-100); ABG TCO2 41.7 mmhg (23-27)
[2018-08-23 08:19] LABS: Allen's Test Acceptable; Oxygen 40 %; Source Right Radial; Vent Rate 18
[2018-08-23 08:20] LABS: ABG PCO2 112.1 mmhg (35.0-45.0); ABG PH 7.15 mmol/L (7.35-7.45)
[2018-08-23 08:27] LABS: Potassium 6.5 mmoL/L (3.5-5.1)
--- NOTE | 2018-08-23 08:57 | XR_ITS ---
XR chest portable HISTORY: ITS.REASON: resp distress ORDERING PHYSICIAN: Jair García MD PATIENT AGE: 78 years COMPARISON: Portable semiupright chest 08/21/2018 FINDINGS: The lung torres are fairly well-expanded. Patchy ill-defined opacities are seen in the perihilar regions bilaterally and at the right base suggestive of pneumonic infiltrates. The upper lung torres remain clear. There has been some interval improvement in the infiltrates when compared to the previous chest film 08/21/2018. Again is generalized cardiomegaly with biventricular enlargement but is no pulmonary congestion. Orthopedic hardware is again seen left humeral shaft IMPRESSION: Bilateral perihilar and right lower lobe ill-defined opacities consistent with pneumonic infiltrates showing some slight interval improvement from the previous study
[2018-08-23 10:18] LABS: ABG Base Excess 4.9 mmol/L (-2.4-2.3); ABG Oxygen Saturation 94 % (90-100); ABG PO2 78.6 mmhg (80-100); ABG TCO2 35.8 mmhg (23-27)
[2018-08-23 10:22] LABS: Oxygen 40 %; Vent Rate 20
[2018-08-23 10:23] LABS: Allen's Test Acceptable; Source Right Radial
[2018-08-23 10:24] LABS: ABG PCO2 88.3 mmhg (35.0-45.0); ABG PH 7.19 mmol/L (7.35-7.45)
[2018-08-23 12:22] LABS: POC Glucose,Bedside 336 (70-110)
--- NOTE | 2018-08-23 12:55 | HMH.ACPN2 ---
Internal Medicine - PN: Subj *Date: 08/23/18 *Time: 09:36 Interval history: Interval worsening, patient more obtunded this morning. Blood gas showing concern for worsening hypercapnia. Initiated on BiPAP and will monitor through the day. Responsive only to painful stimuli. Not oriented to self. Unable to provide review of systems Exam Vital signs and Labs for Last 24 Hours: Temp Pulse Resp BP Pulse Ox 97.8 F 59 L 22 124/87 93 L 08/23/18 11:53 08/23/18 09:16 08/23/18 08:00 08/23/18 07:38 08/23/18 08:00 Laboratory Results - last 24 hr 08/22/18 17:14: POC Glucose 380 H* 08/22/18 20:42: POC Glucose 323 H* 08/23/18 05:23: WBC 7.7, RBC 3.38 L, Hgb 9.2 L, Hct 31.7 L, MCV 93.6, MCH 27.2, MCHC 29.0 L, RDW 18.0 H, Plt Count 142, MPV 9.8, Neut % (Auto) 87.7 H, Lymph % (Auto) 7.6 L, Otoe % (Auto) 4.5, Eos % (Auto) 0.0 L, Baso % (Auto) 0.2, Neut # (Auto) 6.8, Lymph # (Auto) 0.6 L, Otoe # (Auto) 0.3, Eos # (Auto) 0.0, Baso # (Auto) 0.0, Total Counted 100, Neutrophils % (Manual) 84 H, Band Neutrophils % 5.0, Lymphocytes % (Manual) 7 L, Monocytes % (Manual) 4, Platelet Estimate Normal, Anisocytosis 1+ 08/23/18 05:23: Sodium 138, Potassium 6.4 H*, Chloride 101, Carbon Dioxide 37 H, Anion Gap 6.4, BUN 29 H D, Creatinine 1.48 H, Estimated Creat Clear 44, Estimated GFR 34 L, Est GFR ( Amer) 41 L, Glucose 341 H, Calcium 7.8 L, Total Bilirubin 0.5, AST 9 L D, ALT 39 D, Alkaline Phosphatase 98, Total Protein 6.3 L, Albumin 2.9 L, Globulin 3.4 H, Albumin/Globulin Ratio 0.9 L 08/23/18 05:56: POC Glucose 352 H* 08/23/18 07:57: Specimen Source Right radial, O2 % 40, ABG pH 7.15 L*, ABG pCO2 112.1 H, ABG pO2 78.2 L, ABG HCO3 38.3 H, ABG Total CO2 41.7 H, ABG O2 Saturation 93, ABG Base Excess 9.4 H, Alex Test Acceptable, Vent Rate 18, Tidal Volume Bipap 14/7 08/23/18 08:02: Potassium 6.5 H* 08/23/18 09:45: Specimen Source Right radial, O2 % 40, ABG pH 7.19 L*, ABG pCO2 88.3 H, ABG pO2 78.6 L, ABG HCO3 33.0 H, ABG Total CO2 35.8 H, ABG O2 Saturation 94, ABG Base Excess 4.9 H, Alex Test Acceptable, Vent Rate 20, Tidal Volume Bipap 18/7 08/23/18 12:15: POC Glucose 336 H* I & O for Last 24 hours: Intake & Output 08/20/18 08/21/18 08/22/18 08/23/18 23:59 23:59 23:59 23:59 Intake Total 2059 / 2059 490 / 490 Output Total 900 / 900 200 / 200 Balance 1159 / 1159 290 / 290 Weight 92.193 kg 92.334 kg 92.731 kg Microbiology Reports for the Last 24 Hours: Microbiology 08/21/18 21:22 Urine,Catheterized Urine Culture - Final Escherichia coli Narrative: Altered renal status, responds to painful stimuli, on BiPAP Lungs have poor air movement bilaterally, crackles in bases, no wheeze Abdomen soft and nontender Heart rate regular, Trace ankle edema. 1+ edema. Perfusion is good. Moist mucous membranes, edentulous, pupils equal round and reactive Skin warm, pale, cap refill less than 3 seconds Assessment and Plan (1) Acute respiratory failure with hypoxia and hypercapnia Problem details: Chronic, improved significantly. Continue antibiotics. Improved as well with diuresis. At baseline oxygen requirement Current visit: Yes Status: Acute Category: Medical Code(s): J96.01 - Acute respiratory failure with hypoxia; J96.02 - Acute respiratory failure with hypercapnia (2) Anemia Current visit: Yes Status: Acute Qualifiers: Anemia type: unspecified type Qualified Code(s): D64.9 - Anemia, unspecified Category: Medical Code(s): D64.9 - Anemia, unspecified (3) Urinary tract infection Problem details: Positive for ESBL E. coli. Transition to Invanz at time of discharge. Continue for total of 7 days. First dose to administered on day of discharge. Will require 6 more days of IM Invanz per med rec after discharge back to [facility] Current visit: Yes Status: Acute Qualifiers: Urinary tract infection type: site unspecified Hematuria presence:
[2018-08-23 14:39] LABS: Anion Gap 5.5 mEq/L (5-15); Blood Urea Nitrogen 36 mg/dL (7-18); Calcium 7.8 mg/dL (8.5-10.1); Carbon Dioxide 37 mmol/L (21.0-32.0); Chloride 102 mmol/L (98-107); Creatinine Clearance Estimated 43 mL/min (50-200); Creatinine,Serum 1.51 mg/dL (0.55-1.02); Estimated Glomerular Filt Rate 33 ml/min (>60); GFR (African American) 40 ML/MIN (>60); Glucose 347 mg/dL (74-106); Sodium 138 mmol/L (136-145)
[2018-08-23 14:40] LABS: ABG Base Excess 7.3 mmol/L (-2.4-2.3); ABG HCO3 33.7 mmhg (22.0-26.0); ABG Oxygen Saturation 95 % (90-100); ABG TCO2 35.9 mmhg (23-27)
[2018-08-23 14:41] LABS: Potassium 6.5 mmoL/L (3.5-5.1)
[2018-08-23 14:43] LABS: Oxygen 40 %
[2018-08-23 14:44] LABS: ABG PCO2 69.8 mmhg (35.0-45.0); Allen's Test Acceptable; Source Right Radial; Vent Rate 20
--- NOTE | 2018-08-23 16:48 | PC.NURSE ---
0730 critical potassium received from lab, informed dr. garrett at bedside of potassium of 6.4 and lethargy. new orders received and carried out. repeat potassium sent to lab, abgs obtained ekg obtained. patient continues to be lethargic
--- NOTE | 2018-08-23 16:50 | PC.NURSE ---
[address] garrett who remains at bedside of lab, abg and ekg results. new orders received and carried out. bipap settings changed by respiratory therapy after discussion with dr. garrett. order obtained to repeat abgs in 1 after after bipap changes. no new orders to treat potassium level at this time.
--- NOTE | 2018-08-23 17:17 | PC.NURSE ---
0830 orders received to hold ivfs and given 40 mg ivp now as well to obtain stat pcxr. all carried out.
--- NOTE | 2018-08-23 17:18 | PC.NURSE ---
1000 repeat abgs obtained and dr. garrett notified of results as well has continuation of patient lethargy and decreased urine output. dr. garrett remains at bedside assessing patient. new orders to obtain repeat abg and potassium level at 1400 with current bipap settings
[2018-08-23 17:19] LABS: POC Glucose,Bedside 336 (70-110)
--- NOTE | 2018-08-23 17:20 | PC.NURSE ---
1400 repeat labs and abgs obtained, dr. garrett notified. patient opens eyes to voice instead of just painful stimuli current. urine output has increased. will continue to monitor
--- NOTE | 2018-08-23 17:21 | PC.NURSE ---
1500 new orders received by dr. garrett for insulin 5 units now for elevated potassium level and kayexalate for potassium level as well. patient continues to be sleepy but will arouse to voice now.
--- NOTE | 2018-08-23 17:22 | PC.NURSE ---
1600 patient opens eyes spontaneously follows commands, confused to situation, place and time. able to take po medications including kayexalate. bipap replaced after oral care and medications given.
--- NOTE | 2018-08-23 17:23 | PC.NURSE ---
1700 patient awake and alert following commands able to eat dinner with assistance sats remain 88-90 on 3 l nc
--- NOTE | 2018-08-23 18:25 | PC.NURSE ---
All care provided by Marcia Moran RN was directly supervised by this resume writer.
--- NOTE | 2018-08-23 19:14 | PC.NURSE ---
report given to shmuel
[2018-08-23 20:43] LABS: POC Glucose,Bedside 326 (70-110)
[2018-08-23 22:27] LABS: Blood Urea Nitrogen 41 mg/dL (7-18); Calcium 7.5 mg/dL (8.5-10.1); Carbon Dioxide 35 mmol/L (21.0-32.0); Chloride 101 mmol/L (98-107); Creatinine Clearance Estimated 46 mL/min (50-200); Creatinine,Serum 1.44 mg/dL (0.55-1.02); Estimated Glomerular Filt Rate 35 ml/min (>60); GFR (African American) 42 ML/MIN (>60); Glucose 248 mg/dL (74-106); Sodium 139 mmol/L (136-145)
--- NOTE | 2018-08-23 22:32 | PC.NURSE ---
Notified Dr. García of critical Potassium of 6.0 No new orders received at this time. states he would order another dose of kayexelate in the morning.
[2018-08-24] VITALS (23 sets, daily range): BP systolic 123–177; BP diastolic 60–80; PULSE 50–86; RESP 16–24; TEMP 36.4–37.2; O2SAT 91–100; BMI 34.0
--- NOTE | 2018-08-24 04:12 | PC.NURSE ---
Rested at intervals this shift. Is alert to self and place w/ some increased confusion as shift progressed. Remains on BiPAP @ 40 lpm w/ no s/s of resp distress. Pt was taken off BiPAP for short period of time and placed on 3 L O2 per nasal cannula while taking night time meds, tolerating this well w/ SPO2 ranging 89-91%. Turned and repositioned Q2H. No skin breakdown noted. Lacey cath to drain at bedside w/ drk yellow urine noted. No BM this shift. PIV's saline locked per MD request to hold fluids. Sinus Morteza on teley w/ HR frequently in 50's. VSS. Will continue to monitor.
[2018-08-24 05:32] LABS: POC Glucose,Bedside 204 (70-110)
[2018-08-24 06:15] LABS: Alanine Aminotransferase 32 U/L (12-78); Albumin Level 2.9 gm/dL (3.4-5.0); Alkaline Phosphatase 92 U/L (46-116); Anion Gap 8.5 mEq/L (5-15); Aspartate Amino Transferase 2 U/L (15-37); Bilirubin,Total 0.6 mg/dL (0.2-1.0); Blood Urea Nitrogen 44 mg/dL (7-18); Calcium 7.8 mg/dL (8.5-10.1); Carbon Dioxide 36 mmol/L (21.0-32.0); Chloride 100 mmol/L (98-107); Creatinine Clearance Estimated 53 mL/min (50-200); Creatinine,Serum 1.23 mg/dL (0.55-1.02); Estimated Glomerular Filt Rate 42 ml/min (>60); GFR (African American) 51 ML/MIN (>60); Globulin 2.9 gm/dl (1.3-3.2); Glucose 200 mg/dL (74-106); Phosphorous 2.9 mg/dL (2.4-4.9); Potassium 5.5 mmoL/L (3.5-5.1); Sodium 139 mmol/L (136-145); Total Protein,Serum 5.8 gm/dL (6.4-8.2)
--- NOTE | 2018-08-24 08:42 | HMH.ACPN2 ---
Internal Medicine - PN: Subj *Date: 08/24/18 *Time: 09:31 Interval history: Patient showing significant improvement today over yesterday. Patient is alert and oriented x3 on exam this morning. Wore BiPAP all night with good response. Getting ready to eat breakfast on exam. Patient has no complaints, is requesting to go home. Denies chest pain, nausea vomiting, shortness of breath at stable Exam Vital signs and Labs for Last 24 Hours: Temp Pulse Resp BP Pulse Ox 97.6 F 53 L 20 147/69 H 92 L 08/24/18 04:00 08/24/18 06:02 08/24/18 06:01 08/24/18 06:01 08/24/18 06:01 Laboratory Results - last 24 hr 08/23/18 09:45: Specimen Source Right radial, O2 % 40, ABG pH 7.19 L*, ABG pCO2 88.3 H, ABG pO2 78.6 L, ABG HCO3 33.0 H, ABG Total CO2 35.8 H, ABG O2 Saturation 94, ABG Base Excess 4.9 H, Alex Test Acceptable, Vent Rate 20, Tidal Volume Bipap 14/1008/23/18 12:15: POC Glucose 336 H* 08/23/18 13:55: Sodium 138, Potassium 6.5 H*, Chloride 102, Carbon Dioxide 37 H, Anion Gap 5.5, BUN 36 H, Creatinine 1.51 H, Estimated Creat Clear 43, Estimated GFR 33 L, Est GFR ( Amer) 40 L, Glucose 347 H, Calcium 7.8 L 08/23/18 14:00: Specimen Source Right radial, O2 % 40, ABG pH 7.30 L, ABG pCO2 69.8 H, ABG pO2 80.0, ABG HCO3 33.7 H, ABG Total CO2 35.9 H, ABG O2 Saturation 95, ABG Base Excess 7.3 H, Alex Test Acceptable, Vent Rate 20, Tidal Volume Bipap 14/1008/23/18 17:02: POC Glucose 336 H* 08/23/18 20:12: POC Glucose 326 H* 08/23/18 22:05: Sodium 139, Potassium 6.0 H, Chloride 101, Carbon Dioxide 35 H, Anion Gap 9.0, BUN 41 H, Creatinine 1.44 H, Estimated Creat Clear 46, Estimated GFR 35 L, Est GFR ( Amer) 42 L, Glucose 248 H D, Calcium 7.5 L 08/24/18 05:07: Sodium 139, Potassium 5.5 H, Chloride 100, Carbon Dioxide 36 H, Anion Gap 8.5, BUN 44 H, Creatinine 1.23 H, Estimated Creat Clear 53, Estimated GFR 42 L, Est GFR ( Amer) 51 L D, Glucose 200 H, Calcium 7.8 L, Phosphorus 2.9, Magnesium 2.0, Total Bilirubin 0.6, AST 2 L D, ALT 32, Alkaline Phosphatase 92, Total Protein 5.8 L, Albumin 2.9 L, Globulin 2.9, Albumin/Globulin Ratio 1.0 L 08/24/18 05:21: POC Glucose 204 H I & O for Last 24 hours: Intake & Output 08/21/18 08/22/18 08/23/18 08/24/18 23:59 23:59 23:59 23:59 Intake Total 2059 / 9 850 / 850 Output Total 900 / 900 850 / 850 350 / 350 Balance 1159 / 1159 0 / 0 -350 / -350 Weight 92.193 kg 92.334 kg 92.731 kg 92.533 kg Microbiology Reports for the Last 24 Hours: Microbiology 08/21/18 21:22 Blood Blood Culture - Preliminary NO GROWTH AFTER 48 HOURS 08/21/18 21:22 Blood Blood Culture - Preliminary NO GROWTH AFTER 48 HOURS 08/22/18 16:00 Sputum - Expectorated Sputum Gram Stain - Final 08/21/18 21:22 Urine,Catheterized Urine Culture - Final Escherichia coli Narrative: Patient is in bed, alert and oriented x 3. On nasal cannula oxygen 3 L. No acute distress, not dyspneic on interview Lungs have interval improvement in crackles, fair air movement in anterior lung torres bilaterally Abdomen soft and nontender Heart rate regular, Trace ankle edema. Trace sacral edema. Perfusion is good. Moist mucous membranes, edentulous, pupils equal round and reactive Skin warm, pale, cap refill less than 3 seconds Assessment and Plan (1) Acute respiratory failure with hypoxia and hypercapnia Problem details: Chronic, improved significantly. Continue antibiotics. Improved as well with diuresis. At baseline oxygen requirement Current visit: Yes Status: Acute Category: Medical Code(s): J96.01 - Acute respiratory failure with hypoxia; J96.02 - Acute respiratory failure with hypercapnia (2) Anemia Current visit: Yes Status: Acute Qualifiers: Anemia type: unspecified type Qualified Code(s): D64.9 - Anemia, unspecified Category: Medical Code(s): D64.9 - Anemia, unspecified (
--- NOTE | 2018-08-24 08:45 | P.PN_ITS ---
Internal Medicine - PN: Subj *Date: 08/24/18 *Time: 09:31 Interval history: Patient showing significant improvement today over yesterday. Patient is alert and oriented x3 on exam this morning. Wore BiPAP all night with good response. Getting ready to eat breakfast on exam. Patient has no complaints, is requesting to go home. Denies chest pain, nausea vomiting, shortness of breath at stable Exam Vital signs and Labs for Last 24 Hours: Temp Pulse Resp BP Pulse Ox 97.6 F 53 L 20 147/69 H 92 L 08/24/18 04:00 08/24/18 06:02 08/24/18 06:01 08/24/18 06:01 08/24/18 06:01 Laboratory Results - last 24 hr 08/23/18 09:45: Specimen Source Right radial, O2 % 40, ABG pH 7.19 L*, ABG pCO2 88.3 H, ABG pO2 78.6 L, ABG HCO3 33.0 H, ABG Total CO2 35.8 H, ABG O2 Saturation 94, ABG Base Excess 4.9 H, Alex Test Acceptable, Vent Rate 20, Tidal Volume Bipap 14/1008/23/18 12:15: POC Glucose 336 H* 08/23/18 13:55: Sodium 138, Potassium 6.5 H*, Chloride 102, Carbon Dioxide 37 H, Anion Gap 5.5, BUN 36 H, Creatinine 1.51 H, Estimated Creat Clear 43, Estimated GFR 33 L, Est GFR ( Amer) 40 L, Glucose 347 H, Calcium 7.8 L 08/23/18 14:00: Specimen Source Right radial, O2 % 40, ABG pH 7.30 L, ABG pCO2 69.8 H, ABG pO2 80.0, ABG HCO3 33.7 H, ABG Total CO2 35.9 H, ABG O2 Saturation 95, ABG Base Excess 7.3 H, Alex Test Acceptable, Vent Rate 20, Tidal Volume Bipap 14/1008/23/18 17:02: POC Glucose 336 H* 08/23/18 20:12: POC Glucose 326 H* 08/23/18 22:05: Sodium 139, Potassium 6.0 H, Chloride 101, Carbon Dioxide 35 H, Anion Gap 9.0, BUN 41 H, Creatinine 1.44 H, Estimated Creat Clear 46, Estimated GFR 35 L, Est GFR ( Amer) 42 L, Glucose 248 H D, Calcium 7.5 L 08/24/18 05:07: Sodium 139, Potassium 5.5 H, Chloride 100, Carbon Dioxide 36 H, Anion Gap 8.5, BUN 44 H, Creatinine 1.23 H, Estimated Creat Clear 53, Estimated GFR 42 L, Est GFR ( Amer) 51 L D, Glucose 200 H, Calcium 7.8 L, Phosphorus 2.9, Magnesium 2.0, Total Bilirubin 0.6, AST 2 L D, ALT 32, Alkaline Phosphatase 92, Total Protein 5.8 L, Albumin 2.9 L, Globulin 2.9, Albumin/Globulin Ratio 1.0 L 08/24/18 05:21: POC Glucose 204 H I & O for Last 24 hours: Intake & Output 08/21/18 08/22/18 08/23/18 08/24/18 23:59 23:59 23:59 23:59 Intake Total 2059 / 2059 850 / 850 Output Total 900 / 900 850 / 850 350 / 350 Balance 1159 / 1159 0 / 0 -350 / -350 Weight 92.193 kg 92.334 kg 92.731 kg 92.533 kg Microbiology Reports for the Last 24 Hours: Microbiology 08/21/18 21:22 Blood Blood Culture - Preliminary NO GROWTH AFTER 48 HOURS 08/21/18 21:22 Blood Blood Culture - Preliminary NO GROWTH AFTER 48 HOURS 08/22/18 16:00 Sputum - Expectorated Sputum Gram Stain - Final 08/21/18 21:22 Urine,Catheterized Urine Culture - Final Escherichia coli Narrative: Patient is in bed, alert and oriented x 3. On nasal cannula oxygen 3 L. No acute distress, not dyspneic on interview Lungs have interval improvement in crackles, fair air movement in anterior lung torres bilaterally Abdomen soft and nontender Heart rate regular, Trace ankle edema. Trace sacral edema. Perfusion is good. Moist mucous membranes, edentulous, pupils equal round and reactive Skin warm, pale, cap refill less than 3 seconds Assessment and Plan (1) Acute respiratory failure with hypoxia
--- NOTE | 2018-08-24 10:45 | PC.NURSE ---
0800 dr. garrett at bedside, chart reviewed assessment complete, questions answered and plan of care reviewed. patient awake alert and oriented this am, patient placed on 3 l nc, order to keep sats 88-92%. patient in good spirits, eating breakfast independantly
--- NOTE | 2018-08-24 10:47 | PC.NURSE ---
pateint has remained awake alert and oriented x 4 this am with sats from high 802 to mid 90s on [address] engineer shows sb-sr with occasional pacs.
[2018-08-24 11:07] LABS: POC Glucose,Bedside 332 (70-110)
--- NOTE | 2018-08-24 12:28 | PC.NURSE ---
patient has been napping the last couple of hours on bipap at 40% with o2 sats remaining in the high 90s. currently patient is on 3 l nc with o2 sats of 93%. patient eating lunch independently. quality assurance monitor body has been showing sb with sr with occasional pacs.
--- NOTE | 2018-08-24 14:41 | PC.NURSE ---
patient resting in bed with eyes closed. o2 sats 99% on 3 l nc, o2 titrated down to 2 l nc.
--- NOTE | 2018-08-24 15:02 | PC.NURSE ---
patient has been educated several times on the importance of the bipap, patient has been willing to wear bipap for a few hours throughout the day. patient has worn the bipap for two hours prior to lunch and supper without any objections.
[2018-08-24 16:38] LABS: POC Glucose,Bedside 319 (70-110)
--- NOTE | 2018-08-24 16:39 | PC.NURSE ---
patient off bipap currently on 2 lnc with o2 sats at 93%. patient awake, alert and oriented x 4
[2018-08-24 20:56] LABS: POC Glucose,Bedside 328 (70-110)
[2018-08-25] VITALS: BP 158/71; PULSE 50; PULSE 54; RESP 18; TEMP 36.8; O2SAT 95
[2018-08-25 01:07] VITALS: PULSE 48; PULSE 58
[2018-08-25 04:00] VITALS: BP 167/83; PULSE 47; PULSE 50; RESP 15; TEMP 36.8; O2SAT 97
--- NOTE | 2018-08-25 04:12 | PC.NURSE ---
Addendum entered by Teresa Rodriugez RN 08/25/18 05:28: HR noted to be mid to high 40's on tele. Pt is asymptomatic. MD is aware, no new orders. Original Note: Pt. has slept well this shift. pt on Bipap for most of night w/o any difficulty or complaints. has been A&Ox3 this shift. Pt. daren cardic on tele, mostly in the low to mid 50's. Pt awakens easily and HR increases to mid 60's. other VSS. No bm this shift. catheter patient and draining yellow urine. will cont. to monitor.
[2018-08-25 05:32] VITALS: PULSE 45; PULSE 48
[2018-08-25 05:59] VITALS: BMI 33.6
[2018-08-25 06:10] LABS: POC Glucose,Bedside 218 (70-110)
[2018-08-25 07:05] LABS: Hematocrit 30.8 % (37.0-47.0); Hemoglobin 9.4 g/dL (12.2-16.2); Lymphocytes # 0.5 K/mm3 (0.7-4.5); Lymphocytes % 8.2 % (10-50); Mean Corpuscular HGB Conc 30.4 g/dL (31.8-35.4); Mean Corpuscular Hemoglobin 26.6 pg (27.0-31.2); Mean Corpuscular Volume 87.6 fl (81-99); Mean Platelet Volume 9.8 fl (7.4-10.4); Monocytes # 0.3 K/mm3 (0.1-1.0); Monocytes % 4.4 % (1.7-9.3); Neutrophils # 4.9 K/mm3 (1.8-7.8); Neutrophils % 87.3 % (37.0-80.0); Platelet Count 127 K/mm3 (142-424); Red Blood Count 3.52 M/mm3 (4.20-5.40); Red Cell Distribution Width 18.1 % (11.5-17.5); White Blood Count 5.6 K/mm3 (4.8-10.8)
[2018-08-25 07:12] LABS: MANUAL DIFFERENTIAL MANUAL DIFFERENTIAL (MANUAL DIFF)
[2018-08-25 07:15] LABS: Alanine Aminotransferase 27 U/L (12-78); Albumin Level 2.8 gm/dL (3.4-5.0); Alkaline Phosphatase 84 U/L (46-116); Anion Gap 5.8 mEq/L (5-15); Aspartate Amino Transferase 2 U/L (15-37); Bilirubin,Total 0.7 mg/dL (0.2-1.0); Blood Urea Nitrogen 32 mg/dL (7-18); Calcium 8.3 mg/dL (8.5-10.1); Carbon Dioxide 38 mmol/L (21.0-32.0); Chloride 100 mmol/L (98-107); Creatinine Clearance Estimated 65 mL/min (50-200); Creatinine,Serum 0.93 mg/dL (0.55-1.02); Estimated Glomerular Filt Rate 58 ml/min (>60); GFR (African American) 70 ML/MIN (>60); Globulin 2.9 gm/dl (1.3-3.2); Glucose 226 mg/dL (74-106); Potassium 4.8 mmoL/L (3.5-5.1); Sodium 139 mmol/L (136-145); Total Protein,Serum 5.7 gm/dL (6.4-8.2)
--- NOTE | 2018-08-25 07:24 | HMH.DCSUM ---
General - General Admission date:: 08/22/18 Discharge date: 08/25/18 HPI HPI: Ms. Zhang is a pleasant 78-year-old female with some mild dementia. She presented last night to the ER from [facility] via EMS due to altered mental status and confusion. Patient was unaware that she came to the hospital and was confused as to where she was this morning. History obtained from calling care home and speaking to AMA. She states the patient became obtunded yesterday after poor compliance with her BiPAP. Was brought to the ER for further management. On arrival found to be hypercarbic with questionable finding of pneumonia on imaging. Initiated on antibiotics and BiPAP. Admitted to medicine for further management. On interview this morning the patient is very pleasant but confused and nervous as she was not sure where she was or why she was at the hospital. She states she is feeling better this morning and knows who she is. Is wanting to talk with her son about her status. She has been wearing her BiPAP and shown significant improvement in her mental status. Sepsis criteria was met so cultures are pending. Denies any nausea, vomiting, chest pain, worsening dyspnea from baseline. Denies weakness or focal deficits. Hospital Course Hospital Course: Patient was admitted, placed on broad-spectrum antibiotics and BiPAP was started. Patient avoided worsening of her significant hypercarbic acidosis from acute superimposed on chronic respiratory failure with BiPAP and improved over the next couple of days with diuresis and intravenous antibiotics. Found to have E. coli urinary tract infection with ESBL positive, placed on ertapenem and did well with this. Improved in a stepwise fashion. This morning wishes to be discharged back to her regular room. She is alert, oriented x2, very much improved this morning and our plan is to discharge back to [facility] It is extremely important that patient be placed on her BiPAP machine when she is sleeping whether during the day or at night. Anytime she lays down to sleep she must be placed on her BiPAP machine. She needs to have a ertapenem 1 g IM daily for the next 7 days, starting tomorrow, and her other medications are as noted. She needs to have skilled evaluation by PT/OT/speech therapy. Follow per our rounds at that facility. Of note, our opinion is that patient should be transitioned into a DNR status because of her ongoing issues and poor prognosis, this needs to be brought up with family at care home. They have not been available for discussion here in the hospital. Objective Vital signs: Temp Pulse Resp BP Pulse Ox 98.3 F 48 L 15 167/83 H 97 08/25/18 04:00 08/25/18 05:32 08/25/18 04:00 08/25/18 04:00 08/25/18 04:00 Narrative: Patient is awake, alert. Oriented x2. No scleral icterus. No JVD. Lungs have good air movement, minimal rhonchi in both bases but vastly improved. Heart rate regular without murmurs. Abdomen soft, no edema or clubbing. Tissue perfusion is adequate. Skin turgor is good. Lacey catheter draining clear yellow urine. To move all extremities. Results Labs on day of discharge: Labs from last 24 hours 08/25/18 08/25/18 08/25/18 05:59 05:35 05:35 WBC 5.6 D RBC 3.52 L Hgb 9.4 L Hct 30.8 L MCV 87.6 MCH 26.6 L MCHC 30.4 L RDW 18.1 H Plt Count 127 L MPV 9.8 Neut % (Auto) 87.3 H Lymph % (Auto) 8.2 L [place] % (Auto) 4.4 Eos % (Auto) 0.0 L Baso % (Auto) 0.0 L Neut # (Auto) 4.9 Lymph # (Auto) 0.5 L [place] # (Auto) 0.3 Eos # (Auto) 0.0 Baso # (Auto) 0.0 Sodium 139 Potassium 4.8 Chloride 100 Carbon Dioxide 38 H Anion Gap 5.8 BUN 32 H D Creatinine 0.93 D Estimated Creat Clear 65 Estimated GFR 58 L Est GFR ( Amer) 70 D Glucose 226 H POC Glucose 218 H Calcium 8.3
--- NOTE | 2018-08-25 07:27 | P.DS_ITS ---
General - General Admission date:: 08/22/18 Discharge date: 08/25/18 HPI HPI: Ms. Zhang is a pleasant 78-year-old female with some mild dementia. She presented last night to the ER from [facility] via EMS due to altered mental status and confusion. Patient was unaware that she came to the hospital and was confused as to where she was this morning. History obtained from calling alf and speaking to AMA. She states the patient became obtunded yesterday after poor compliance with her BiPAP. Was brought to the ER for further management. On arrival found to be hypercarbic with questionable finding of pneumonia on imaging. Initiated on antibiotics and BiPAP. Admitted to medicine for further management. On interview this morning the patient is very pleasant but confused and nervous as she was not sure where she was or why she was at the hospital. She states she is feeling better this morning and knows who she is. Is wanting to talk with her son about her status. She has been wearing her BiPAP and shown significant improvement in her mental status. Sepsis criteria was met so cultures are pending. Denies any nausea, vomiting, chest pain, worsening dyspnea from baseline. Denies weakness or focal deficits. Hospital Course Hospital Course: Patient was admitted, placed on broad-spectrum antibiotics and BiPAP was started. Patient avoided worsening of her significant hypercarbic acidosis from acute superimposed on chronic respiratory failure with BiPAP and improved over the next couple of days with diuresis and intravenous antibiotics. Found to have E. coli urinary tract infection with ESBL positive, placed on ertapenem and did well with this. Improved in a stepwise fashion. This morning wishes to be discharged back to her regular room. She is alert, oriented x2, very much improved this morning and our plan is to discharge back to [facility] It is extremely important that patient be placed on her BiPAP machine when she is sleeping whether during the day or at night. Anytime she lays down to sleep she must be placed on her BiPAP machine. She needs to have a ertapenem 1 g IM daily for the next 7 days, starting tomorrow, and her other medications are as noted. She needs to have skilled evaluation by PT/OT/speech therapy. Follow per our rounds at that facility. Of note, our opinion is that patient should be transitioned into a DNR status because of her ongoing issues and poor prognosis, this needs to be brought up with family at alf. They have not been available for discussion here in the hospital. Objective Vital signs: Temp Pulse Resp BP Pulse Ox 98.3 F 48 L 15 167/83 H 97 08/25/18 04:00 08/25/18 05:32 08/25/18 04:00 08/25/18 04:00 08/25/18 04:00 Narrative: Patient is awake, alert. Oriented x2. No scleral icterus. No JVD. Lungs have good air movement, minimal rhonchi in both bases but vastly improved. Heart rate regular without murmurs. Abdomen soft, no edema or clubbing. Tissue perfusion is adequate. Skin turgor is good. Lacey catheter draining clear yellow urine. To move all extremities. Results Labs on day of discharge: Labs from last 24 hours 08/25/18 08/25/18 08/25/18 05:59 05:35 05:35 WBC 5.6 D RBC 3.52 L Hgb 9.4 L Hct 30.8 L MCV 87.6 MCH 26.6 L MCHC 30.4 L
[2018-08-25 08:00] VITALS: BP 149/69; PULSE 60; PULSE 64; RESP 20; TEMP 36.7; O2SAT 95
[2018-08-25 08:15] LABS: Lymphocytes % 8 % (10-50); Monocytes % 5 % (2-9); Neutrophils % 86 % (42-76); Total Cells Counted 100
[2018-08-25 08:16] LABS: Platelet Estimate Slight Decrease
--- NOTE | 2018-08-25 11:10 | PC.NURSE ---
Patient has tolerated well this morning, discharge orders received to transport back to [facility]. IV removed x2 from left and right hand, catheters intact, tolerated well. Patient's dolan was pulled this morning at approx 0830, 650ml drained prior to discontinuation. VS stable. Patient was picked up by EMS for transport. Report called to Leesa at [facility] and this nurse stressed to her how important it is for her to wear her bipap at night!
== END 2018-08-25 11:04 | DRG 189 ==
LOC: ER 22:34 → 2ND 22:46
PROVIDERS: Admitting Provider Internal Medicine Adolescent Medicine; Emergency Provider Emergency Medicine; PCP Internal Medicine Adolescent Medicine; Visit Provider Internal Medicine Adolescent Medicine
DX: J96.21 Acute and chronic respiratory failure with hypoxia; J18.9 Pneumonia, unspecified organism; J96.22 Acute and chronic respiratory failure with hypercapnia; E11.65 Type 2 diabetes mellitus with hyperglycemia; Z79.4 Long term (current) use of insulin; Z88.2 Allergy status to sulfonamides; Z79.899 Other long term (current) drug therapy; I50.9 Heart failure, unspecified
CPT/HCPCS: 94660; 36415; 71045; 80048; 80053; 81001; 82803; 82962; 83605; 83735; 84100; 84132; 84484; 85007; 85025; 87040; 87070; 87086; 87088; 87186; 87205; 93005; 94640; 94761; 96365; 96375; 99285; G0378; J1335; J2405

== ENCOUNTER 2018-10-27 03:41 | Inpatient (IN) ==
[2018-10-27 04:08] LABS: Basophils % 0.2 % (0.1-2.0); Eosinophils % 0.2 % (0.1-12.0); Hematocrit 35.4 % (37.0-47.0); Hemoglobin 10.7 g/dL (12.2-16.2); Lymphocytes # 1.5 K/mm3 (0.7-4.5); Lymphocytes % 11.4 % (10-50); Mean Corpuscular HGB Conc 30.2 g/dL (31.8-35.4); Mean Corpuscular Volume 87.3 fl (81-99); Monocytes # 0.7 K/mm3 (0.1-1.0); Monocytes % 5.3 % (1.7-9.3); Neutrophils # 10.8 K/mm3 (1.8-7.8); Neutrophils % 82.9 % (37.0-80.0); Platelet Count 120 K/mm3 (142-424); Red Blood Count 4.05 M/mm3 (4.20-5.40); Red Cell Distribution Width 18.1 % (11.5-17.5)
[2018-10-27 04:15] LABS: INR 1.07 (0.9-1.1); Prothrombin Time 11.1 seconds (9.4-11.8)
[2018-10-27 04:21] LABS: Albumin Level 3.4 gm/dL (3.4-5.0); Anion Gap 8.8 mEq/L (5-15); Bilirubin,Total 0.8 mg/dL (0.2-1.0); Globulin 3.4 gm/dl (1.3-3.2); Total Protein,Serum 6.8 gm/dL (6.4-8.2)
[2018-10-27 04:22] LABS: Microscopic, Urine URINE MICROSCOPIC (MICROSCOPIC)
[2018-10-27 04:29] LABS: Appearance,Urine CLEAR (Clear); Bilirubin,Urine Negative (Negative); Blood, Urine Negative (Negative); Color,Urine YELLOW (Yellow); Glucose,Urine (UA) Negative (Negative); Ketones,Urine Negative (Negative); Leukocyte Esterase,Urine 1+ (Negative); PH,Urine 5.5 (5.0-8.5); Protein,Urine Negative (Negative); Specific Gravity, Urine >= 1.030 (1.005-1.030); Urobilinogen,Urine 0.2 EU/dl (0.2)
[2018-10-27 04:36] LABS: Bacteria,Urine 3+ /lpf; RBC,Urine Occasional #/hpf (0-3)
--- NOTE | 2018-10-27 05:02 | Emergency Department Note ---
ED Disposition Clinical Impression: Hyperkalemia, ROSALIA (acute kidney injury), Obesity (BMI 30.0-34.9) A-fib Qualifiers: Atrial fibrillation type: chronic Qualified Code(s): I48.2 - Chronic atrial fibrillation Hyperglycemia due to type 2 diabetes mellitus Qualifiers: Diabetes mellitus tank terminal gauger insulin use: with chcf use Qualified Code(s): E11.65 - Type 2 diabetes mellitus with hyperglycemia; Z79.4 - superintendent marine oil terminal (current) use of insulin Disposition: Admitted As Inpatient Condition on Discharge: Serious Referrals: Saulo Farrell MD [Primary Care Provider] - - Critical Care Critical Care Time: No Attestation: On 10/27/18, the high probability of a clinically significant, sudden or life threatening deterioration of the following system(s) required my full and direct attention, intervention and personal management. The time I documented below is in addition to time spent performing reported procedures but includes the following listed in this critical care notation. Medical Decision Making - Medical Records Medical records reviewed: Yes: I reviewed the patient's medical records. - [place] Inquiry Pt receiving controlled substance: No Vital Signs: 10/27/18 03:42 10/27/18 04:11 10/27/18 05:03 Temperature 99.7 F H Temperature Source Oral Pulse Rate 50 L Pulse Rate [Right Brachial] 53 L 49 L Respiratory Rate 20 16 Blood Pressure [Right Arm] 148/69 H 155/58 H Blood Pressure Mean [Right Arm] 95 90 Blood Pressure Source [Right Arm] Automatic Cuff Automatic Cuff Blood Pressure Position [Right Arm] Sitting Sitting 02 Sat by Pulse Oximetry 85 L 100 Oxygen Delivery Method Room Air Room Air 10/27/18 05:35 Temperature Temperature Source Pulse Rate Pulse Rate [Right Brachial] 54 L Respiratory Rate 16 Blood Pressure [Right Arm] 146/89 H Blood Pressure Mean [Right Arm] 108 Blood Pressure Source [Right Arm] Automatic Cuff Blood Pressure Position [Right Arm] Sitting 02 Sat by Pulse Oximetry 96 Oxygen Delivery Method Room Air - Lab Data Lab results reviewed: Yes: I reviewed the patient's lab results. Lab Results 10/27/18 03:50: WBC 13.0 H, RBC 4.05 L, Hgb 10.7 L, Hct 35.4 L, MCV 87.3, MCH 26.3 L, MCHC 30.2 L, RDW 18.1 H, Plt Count 120 L, MPV 10.0, Neut % (Auto) 82.9 H , Lymph % (Auto) 11.4, [place] % (Auto) 5.3, Eos % (Auto) 0.2, Baso % (Auto) 0.2, Neut # (Auto) 10.8 H, Lymph # (Auto) 1.5, [place] # (Auto) 0.7, Eos # (Auto) 0.0, Baso # (Auto) 0.0 10/27/18 03:50: PT 11.1, INR 1.07, APTT 31.0 10/27/18 03:50: Sodium 133 L, Potassium 7.8 H*, Chloride 98, Carbon Dioxide 34 H , Anion Gap 8.8, BUN 44 H, Creatinine 2.35 H, Estimated Creat Clear 27, Estimated GFR 20 L, Est GFR ( Amer) 24 L, Glucose 260 H, Calcium 8.0 L, Total Bilirubin 0.8, AST 25, ALT 47, Alkaline Phosphatase 92, Total Protein 6.8, Albumin 3.4, Globulin 3.4 H, Albumin/Globulin Ratio 1.0 L 10/27/18 03:50: Lactate 0.7 10/27/18 04:13: Urine Color Yellow, Urine Appearance Clear, Urine pH 5.5, Ur Specific [place] >= 1.030, Urine Protein Negative, Urine Glucose (UA) Negative, Urine Ketones Negative, Urine Blood Negative, Urine Nitrate Negative, Urine Bilirubin Negative, Urine Urobilinogen 0.2, Ur Leukocyte Esterase 1+ A, Urine RBC Occasional, Urine WBC 5-10, Urine Bacteria 3+ Result diagrams: 10/27/18 03:50 10/27/18 03:50 Orders (Tests/Meds): ED MEDICATIONS Discontinued Medications Generic Name Dose Route Start Last Admin Trade Name Freq PRN Reason Stop Dose Admin Albuterol Sulfate 2.5 mg 10/27/18 04:50 10/27/18 05:00 Albuterol 0.083% 2.5mg/3ml Neb IH 10/27/18 04:51 2.5 mg ONCE ONE Administration Calcium Chloride 1 gm 10/27/18 05:03 10/27/18 05:21 Calcium Chloride 1gm/10ml Syringe IVP 10/27/18 05:04 1 gm ONCE ONE Administration Dextrose 50 ml 10/27/18 04:50 10/27/18 05:20 Dextrose 50% 50ml Syringe IVP 10/27/18 04:51 50 ml ONCE ONE Administration Calcium Gluconate 1,000 mg/ 35 mls @ 100 mls/hr 10/27/18 04:50 Sodium Chloride IV 10/27/18 05:10 ONCE ONE Insulin Human Regular 5 unit 10/27/18 04:50 10/27/18 05:20 Humulin R Insulin 100 Units/Ml 10ml Vial IVP 10/27/18 04:51 5 unit ONCE ONE Administration Sodium Polystyrene Sulfonate 15 gm 10/27/18 04:50 10/27/18 05:21 Kayexalate 15gm/60ml Bottle PO 10/27/18 04:51 15 gm ONCE ONE Administration ORDERS Category Date Time Status XR chest portable Stat Exams 10/27/18 03:54 Taken Blood Culture Stat Micro 10/27/18 03:50 Received Urine Culture Stat Micro 10/27/18 04:13 Received - Radiology Data #1 Image(s): Chest Image Reviewed: Yes I reviewed the patient's radiology image Preliminary Findings: Abnormal (chronic changes ) - ECG Data Tracing #1 Arrhythmias present: afib Ischemic changes: non-specific ST-T wave changes ECG compared to prior tracings: there are no significant changes - Physician Consults Physician Consulted: guzman Reason -: Admission Weakness HPI - General Chief complaint: Weakness Stated complaint: Weakness Time Seen by Provider: 10/27/18 04:00 Mode of Arrival: EMS Source of Information: Patient, EMS, Medical Record Limitations: No Limitations Description of Symptoms (Recalled from ER Triage Doc. by RN): PT sent from [facility]. Nurse advises that pt sats were 50-70 and heart rate was low. Pt arrived to ED with heart rate in the 50's and sats were in the 90's with a nasal cannula at 4lpm. Pt advises she feels ok and denies any SOA or pain anywhere. - History of Present Illness HPI Narrative: sent from [facility] for change in pt status - no chest pain - pt with no vomiting or diarrhea MD Complaint: generalized weakness Onset (ago): hour(s) Severity: moderate Associated symptoms: denies other symptoms - Related Data Home Medications Medication Instructions Recorded Confirmed Amlodipine Besylate [Amlodipine 10 mg PO DAILY 06/01/17 10/27/18 10mg Tab] Hydrocod/Acet 5/325 mg [[place] 1 tab PO Q4HP PRN 06/01/17 10/27/18 5/325mg tablet] Lactulose [Enulose] 10 gm PO DAILY PRN 06/01/17 10/27/18 Loratadine 10 mg PO DAILY 06/01/17 10/27/18 Multivitamin with Minerals 1 each PO DAILY 06/01/17 10/27/18 [Multivitamins with Minerals] Ondansetron HCl [Zofran 4mg Tab] 4 mg PO Q6HP PRN 06/01/17 10/27/18 Polyethylene Glycol 3350 [Miralax 17 gm PO DAILYP PRN 06/01/17 10/27/18 17gm Packet] diazePAM [Valium] 1 mg PO HS 06/01/17 10/27/18 metoprolol tartrate 25 mg tablet 25 mg PO BID 12/22/17 10/27/18 Amiodarone HCl [Amiodarone 100mg 200 mg PO DAILY 07/21/18 10/27/18 Tab] Apixaban [Eliquis 5mg tab] 5 mg PO BID 07/21/18 10/27/18 Insulin Glargine,Hum.rec.anlog 70 unit SQ HS 07/21/18 10/27/18 [Lantus Insulin 100units/mL 10mL vial] Linagliptin [Tradjenta 5mg tablet] 5 mg PO DAILY 07/21/18 10/27/18 Acetaminophen [8 Hour Pain Relief] 650 mg PO Q6HP PRN 07/22/18 10/27/18 Calcium Carbonate/Vitamin D3 1 each PO DAILY 07/22/18 10/27/18 [Oyster Shell-D 250 mg Tablet] Escitalopram Oxalate 10 mg PO DAILY 07/22/18 10/27/18 Gabapentin [Gabapentin 300mg Cap] 300 mg PO TID 07/22/18 10/27/18 Insulin Lispro [HumaLOG 100 2 unit SQ DIRECTED 07/22/18 10/27/18 units/mL 3mL vial (SSI)] Melatonin 5 mg PO HS 07/22/18 10/27/18 Omeprazole [Omeprazole 40mg 40 mg PO HS 07/22/18 10/27/18 Capsule] Aspirin [Aspirin 81mg chewable 81 mg PO DAILY 08/22/18 10/27/18 tab] Allergies Allergy/AdvReac Type Severity Reaction Status Date / Time Sulfa (Sulfonamide Allergy Unknown I-RASH Verified 04/13/18 13:12 Antibiotics) [SULFA (SULFONAMIDE ANTIBIOTICS)] [facility] History - Hepatitis A Screen Drug use history?: No High risk sexual behaviors?: No History of sexually transmitted infection?: No Currently employed?: No Childcare worker?: No Do you have indoor plumbing?: Yes Do you have electricity?: Yes Attestation statement:: This patient has been screened for Hepatitis A risk factors. I have reviewed the patient's past medical history: Yes Medical History: Reports:: Anxiety, Asthma, Atrial Fibrillation, Coronary Artery Disease, Depression, Diabetes Mellitus Type 2, Gastroesophageal Reflux Disease(GERD), Hyperlipidemia, Hypertension Denies:: Cancer, Diabetes Mellitus Type 1, Home Oxygen, Internal Pacemaker, MRSA, Seizures Other Medical History: Reports: Anemia, Other. Denies: Blood Transfusion Reaction Laterality Cases: Left: Carpal Tunnel Release Other Surgeries: Yes: Appendectomy, Cholecystectomy, Hernia Repair, Hyster ectomy-Total, Other (spine surgery). No: Pacemaker Amputation: No Fractures: Yes (SPINAL COMPRESSION FX) Comment: leg, arm x2, tubal, lapchole - Social History Smoking Status: Former smoker Tobacco Type: cigarettes # Packs/Day (cigarettes): 1 #Yrs smoked (if former smoker): 32 Alcohol Intake: never Substance Use Type: denies use Occupational Status: retired Housing: [employer] Household Members: caregiver - Psychiatric History Pschychiatric History:: Reports:: Anxiety, Depression Family Hx:: Unable to obtain, Diabetes ROS Obtained: Yes All systems reviewed & no additional complaints - Constitutional Constitutional: Denies fever(s) - Eyes Eyes: Denies change in vision - ENT Ears, Nose, Mouth, and Throat: Denies sore throat - Cardiovascular Cardiovascular: Denies chest pain - Respiratory Respiratory: No cough - Gastrointestinal Gastrointestingal: Denies: diarrhea, vomiting - Genitourinary Female Genitourinary: Denies hematuria - Musculoskeletal Musculoskeletal: Denies joint pain - Integumentary/Breasts Skin/Breast: Denies rash - Neurologic Neurologic: Reports as per HPI, Denies focal weakness, Denies seizure-like activity, Reports weakness Physical Exam - General General appearance: alert, obese - Head Head exam: normocephalic - Eye Eye exam: Present: PERRL, EOMI. Absent: scleral icterus - ENT ENT exam: Present: mucous membranes dry - Neck Neck exam: Present: trachea midline - Respiratory Respiratory exam: Present: other (dec bs bilat ). Absent: respiratory distress - Cardiovascular Cardiovascular exam: Present: bradycardia, irregular rhythm, systolic murmur, +S4 - Abdominal Exam Abdominal exam: Present: soft - Extremities Exam Extremities exam: Present: pedal edema - Neurological Exam Neurological exam: Present: alert, oriented X3, CN II-XII intact - Psychiatric Psychiatric exam: Present: normal affect - Skin Skin exam: Absent: rash
--- NOTE | 2018-10-27 08:13 | History & Physical Report ---
*Admission Date: 10/27/18 *Chief complaint: Fatigue/low oxygen *History of present illness: 78-year-old white female, long-term resident of [facility] who has multiple medical problems as noted in the history of present illness, who was transferred to the emergency department early this morning because of significant issues with reported hypoxia and vital sign irregularities with bradycardia, low blood pressure and then tachycardia. She had no loss of consciousness, but in the emergency department was found to have significant metabolic derangement with potassium levels of 7.8. She is admitted to hospital after initial treatment in the ER for ongoing treatment of hyperkalemia and medication adjustment. [facility] History I have reviewed the patient's past medical history: Yes Medical History: Reports:: Anxiety, Asthma, Atrial Fibrillation, Coronary Artery Disease, Depression, Diabetes Mellitus Type 2, Gastroesophageal Reflux Disease(GERD), Hyperlipidemia, Hypertension Denies:: Cancer, Diabetes Mellitus Type 1, Home Oxygen, Internal Pacemaker, MRSA, Seizures *Have you ever received a pneumonia vaccine?: Yes *Have you received a flu vaccine this season?: Yes Other Medical History: Reports: Anemia, Other. Denies: Blood Transfusion Reaction Laterality Cases: Left: Carpal Tunnel Release Other Surgeries: Yes: Appendectomy, Cholecystectomy, Hernia Repair, Hysterectomy-Total, Other (spine surgery). No: Pacemaker Amputation: No Fractures: Yes (SPINAL COMPRESSION FX) - *Social History Smoking Status: Former smoker Tobacco Type: cigarettes # Packs/Day (cigarettes): 1 #Yrs smoked (if former smoker): 32 Alcohol Intake: never Substance Use Type: denies use *Occupational Status:: retired Housing: halfway Household Members: caregiver *Travel in the last 8 weeks: None - Psychiatric History Pschychiatric History:: Reports:: Anxiety, Depression Family Hx:: No significant family history, Diabetes Review of Systems - Review of Systems Review of systems:: pertinent systems reviewed and negative unless documented below Patient reports that she is tired but feels better than when she left the halfway. Denies chest pain, denies shortness of air. Denies abdominal pain or constipation or diarrhea. Denies pain in her extremities, swelling or neurologic changes over baseline. Denies skin rash. Other review of systems negative except as documented - *Neurologic Reports weakness, Denies localized weakness, Denies seizure-like activity Meds Home Medications Medication Instructions Recorded Confirmed Type Amlodipine Besylate [Amlodipine 10 mg PO DAILY 06/01/17 10/27/18 History 10mg Tab] Hydrocod/Acet 5/325 mg [[place] 1 tab PO Q4HP PRN 06/01/17 10/27/18 History 5/325mg tablet] Lactulose [Enulose] 10 gm PO DAILY PRN 06/01/17 10/27/18 History Loratadine 10 mg PO DAILY 06/01/17 10/27/18 History Multivitamin with Minerals 1 each PO DAILY 06/01/17 10/27/18 History [Multivitamins with Minerals] Ondansetron HCl [Zofran 4mg Tab] 4 mg PO Q6HP PRN 06/01/17 10/27/18 History Polyethylene Glycol 3350 [Miralax 17 gm PO DAILYP PRN 06/01/17 10/27/18 History 17gm Packet] diazePAM [Valium] 1 mg PO HS 06/01/17 10/27/18 History metoprolol tartrate 25 mg tablet 25 mg PO BID 12/22/17 10/27/18 History Amiodarone HCl [Amiodarone 100mg 200 mg PO DAILY 07/21/18 10/27/18 History Tab] Apixaban [Eliquis 5mg tab] 5 mg PO BID 07/21/18 10/27/18 History Insulin Glargine,Hum.rec.anlog 70 unit SQ HS 07/21/18 10/27/18 History [Lantus Insulin 100units/mL 10mL vial] Linagliptin [Tradjenta 5mg tablet] 5 mg PO DAILY 07/21/18 10/27/18 History Acetaminophen [8 Hour Pain Relief] 650 mg PO Q6HP PRN 07/22/18 10/27/18 History Calcium Carbonate/Vitamin D3 1 each PO DAILY 07/22/18 10/27/18 History [Oyster Shell-D 250 mg Tablet] Escitalopram Oxalate 10 mg PO DAILY 07/22/18 10/27/18 History Gabapentin [Gabapentin 300mg Cap] 300 mg PO TID 07/22/18 10/27/18 History Insulin Lispro [HumaLOG 100 2 unit SQ DIRECTED 07/22/18 10/27/18 History units/mL 3mL vial (SSI)] Melatonin 5 mg PO HS 07/22/18 10/27/18 History Omeprazole [Omeprazole 40mg 40 mg PO HS 07/22/18 10/27/18 History Capsule] Aspirin [Aspirin 81mg chewable 81 mg PO DAILY 08/22/18 10/27/18 History tab] Allergies Allergy/AdvReac Type Severity Reaction Status Date / Time Sulfa (Sulfonamide Allergy Unknown I-RASH Verified 04/13/18 13:12 Antibiotics) [SULFA (SULFONAMIDE ANTIBIOTICS)] Exam Vital signs and Labs for Last 24 Hours: Temp Pulse Resp BP Pulse Ox 99.0 F 66 21 126/67 92 L 10/27/18 07:05 10/27/18 07:05 10/27/18 07:05 10/27/18 07:05 10/27/18 07:05 Laboratory Results - last 24 hr 10/27/18 03:50: WBC 13.0 H, RBC 4.05 L, Hgb 10.7 L, Hct 35.4 L, MCV 87.3, MCH 26.3 L, MCHC 30.2 L, RDW 18.1 H, Plt Count 120 L, MPV 10.0, Neut % (Auto) 82.9 H , Lymph % (Auto) 11.4, Shannon % (Auto) 5.3, Eos % (Auto) 0.2, Baso % (Auto) 0.2, Neut # (Auto) 10.8 H, Lymph # (Auto) 1.5, Shannon # (Auto) 0.7, Eos # (Auto) 0.0, Baso # (Auto) 0.0 10/27/18 03:50: PT 11.1, INR 1.07, APTT 31.0 10/27/18 03:50: Sodium 133 L, Potassium 7.8 H*, Chloride 98, Carbon Dioxide 34 H , Anion Gap 8.8, BUN 44 H, Creatinine 2.35 H, Estimated Creat Clear 27, Estimated GFR 20 L, Est GFR ( Amer) 24 L, Glucose 260 H, Calcium 8.0 L, Total Bilirubin 0.8, AST 25, ALT 47, Alkaline Phosphatase 92, Total Protein 6.8, Albumin 3.4, Globulin 3.4 H, Albumin/Globulin Ratio 1.0 L 10/27/18 03:50: Lactate 0.7 10/27/18 04:13: Urine Color Yellow, Urine Appearance Clear, Urine pH 5.5, Ur Specific Worth >= 1.030, Urine Protein Negative, Urine Glucose (UA) Negative, Urine Ketones Negative, Urine Blood Negative, Urine Nitrate Negative, Urine Bilirubin Negative, Urine Urobilinogen 0.2, Ur Leukocyte Esterase 1+ A, Urine RBC Occasional, Urine WBC 5-10, Urine Bacteria 3+ I & O for Last 24 hours: Intake & Output 10/24/18 10/25/18 10/26/18 10/27/18 11:59 11:59 11:59 11:59 Weight 201 lb Narrative: Patient is pleasant. Talkative, alert, oriented x2. No JVD. Heart rate regular with occasional ectopic beats. Blood pressures well controlled. Lungs have good air movement in the anterior lung torres. Abdomen soft and nontender. No extremity edema or clubbing. Moving all extremities. They are warm and well-perfused. Assessment and Plan (1) A-fib Current visit: Yes Status: Acute Qualifiers: Atrial fibrillation type: chronic Qualified Code(s): I48.2 - Chronic atrial fibrillation Category: Medical Code(s): I48.91 - Unspecified atrial fibrillation Currently rate controlled. Watch carefully because of electrolyte derangement (2) ROSALIA (acute kidney injury) Current visit: Yes Status: Acute Category: Medical Code(s): N17.9 - Acute kidney failure, unspecified Watch carefully. Recheck electrolytes this afternoon (3) Hyperkalemia Current visit: Yes Status: Acute Category: Medical Code(s): E87.5 - Hyperkalemia Potassium levels noted. Repeat Kayexalate dosing. Follow labs carefully - hold lisinopril (4) Altered mental status Current visit: No Status: Acute Category: Medical Code(s): R41.82 - Altered mental status, unspecified Seems to be at baseline. No changes in plan
--- NOTE | 2018-10-27 08:24 | Pharmacy Consult Notes ---
[facility] Pharmacy VTE Monitoring - Patient Demographics Admission date: 10/27/18 Report Date: 10/27/18 Time: 08:23 Allergies/Adverse Reactions: Patient Allergies Sulfa (Sulfonamide Antibiotics) [SULFA (SULFONAMIDE ANTIBIOTICS)] Allergy (Unknown, Verified 04/13/18 13:12) I-RASH Height: 1.63 m Weight: 91.172 kg Patient Problems: Current Active Problems (Updated 10/27/18 @ 08:13 by Saulo Farrell MD) Hyperglycemia due to type 2 diabetes mellitus (Chronic) A-fib (Acute) Hyperkalemia (Acute) ROSALIA (acute kidney injury) (Acute) Obesity (BMI 30.0-34.9) (Acute) - VTE Risk Labs: VTE Related Lab Results Hgb 10.7 g/dL (12.2-16.2) L 10/27/18 03:50 Hct 35.4 % (37.0-47.0) L 10/27/18 03:50 Plt Count 120 K/mm3 (142-424) L 10/27/18 03:50 PT 11.1 seconds (9.4-11.8) 10/27/18 03:50 INR 1.07 (0.9-1.1) 10/27/18 03:50 APTT 31.0 seconds (23.6-34.0) 10/27/18 03:50 BUN 44 mg/dL (7-18) H 10/27/18 03:50 Creatinine 2.35 mg/dL (0.55-1.02) H 10/27/18 03:50 Estimated Creat Clear 27 mL/min (50-200) 10/27/18 03:50 - Prophylaxis VTE Prophylaxis Ordered?: Yes Types of VTE Prophylaxis: TEDS Knee High, Pharmacological Location of Applied Device: Bilateral Lower Extremeties Pharmacologic Type: Other (ELIQUIS) - VTE Diagnosis Confirmed Treatment or plan recommended: Continue Current Treatment
[2018-10-27 08:52] LABS: Anion Gap 10.3 mEq/L (5-15); Blood Urea Nitrogen 44 mg/dL (7-18); Calcium 8.8 mg/dL (8.5-10.1); Carbon Dioxide 32 mmol/L (21.0-32.0); Chloride 99 mmol/L (98-107); Glucose 321 mg/dL (74-106); Sodium 134 mmol/L (136-145)
[2018-10-27 08:58] LABS: Thyroid Stimulating Hormone 5.16 uIU/ml (0.358-3.740)
[2018-10-27 16:30] LABS: Calcium 8.4 mg/dL (8.5-10.1)
[2018-10-28 06:38] LABS: Basophils % 0.2 % (0.1-2.0); Eosinophils % 0.1 % (0.1-12.0); Hematocrit 32.2 % (37.0-47.0); Hemoglobin 9.5 g/dL (12.2-16.2); Lymphocytes % 8.8 % (10-50); Mean Corpuscular HGB Conc 29.4 g/dL (31.8-35.4); Mean Corpuscular Volume 87.5 fl (81-99); Mean Platelet Volume 10.7 fl (7.4-10.4); Monocytes # 0.4 K/mm3 (0.1-1.0); Neutrophils # 9.4 K/mm3 (1.8-7.8); Neutrophils % 86.9 % (37.0-80.0); Platelet Count 111 K/mm3 (142-424); Red Blood Count 3.68 M/mm3 (4.20-5.40); Red Cell Distribution Width 18.1 % (11.5-17.5); White Blood Count 10.8 K/mm3 (4.8-10.8)
--- NOTE | 2018-10-28 07:31 | Discharge Summary ---
General - General Admission date:: 10/27/18 Discharge date: 10/28/18 HPI HPI: 78-year-old white female, long-term resident of [facility] who has multiple medical problems as noted in the history of present illness, who was transferred to the emergency department early this morning because of significant issues with reported hypoxia and vital sign irregularities with bradycardia, low blood pressure and then tachycardia. She had no loss of consciousness, but in the emergency department was found to have significant metabolic derangement with potassium levels of 7.8. She is admitted to hospital after initial treatment in the ER for ongoing treatment of hyperkalemia and medication adjustment. Hospital Course Hospital Course: Patient was admitted to hospital, initial treatment in the ER included glucose infusions, calcium gluconate and 1 dose of Kayexalate. Potassium responded down to 7.0 in the next 4 hours, and after transfer to the second floor she was continued on IV fluids, and more Kayexalate was given. She tolerated this well and overnight was kept in the hospital for observation. She was continued on her home BiPAP at home medications except for obviously potassium and RITIKA inhibitor. This morning she was doing well, minimally disoriented at baseline, but potassium had improved to 5.6 and creatinine had dropped to 1.87. Plan will be to discharge back to her long-term care facility obviously she will be discontinued from potassium and lisinopril. We will substitute amlodipine for blood pressure and I would like a BMP drawn tomorrow, October 29. She will also need to have p.o. fluids pushed. I will follow her up next week and correction rounds. Objective Vital signs: Temp Pulse Resp BP Pulse Ox 98.8 F 72 15 145/58 H 94 L 10/28/18 04:00 10/28/18 04:00 10/28/18 04:00 10/28/18 04:00 10/28/18 04:00 Narrative: Patient is pleasant. Awake. Minimally disoriented. Lungs are clear in the anterior torres, heart rate regular. Abdomen soft. She has trace ankle edema from baseline exam. Abdomen soft. Oropharynx moist and clear. No JVD. Able to move arms and legs equally. ENT exam negative. Results Labs on day of discharge: Labs from last 24 hours 10/28/18 10/28/18 10/28/18 06:09 05:52 02:05 Sodium 140 Potassium 5.0 5.6 H Chloride 100 Carbon Dioxide 35 H Anion Gap 10.0 BUN 46 H Creatinine 1.89 H D Estimated Creat Clear 35 Estimated GFR 26 L Est GFR ( Amer) 31 L D Glucose 243 H D POC Glucose 244 H Calcium 8.0 L Troponin I TSH Thyroxine (T4) 10/27/18 10/27/18 10/27/18 21:00 20:43 16:16 Sodium Potassium 6.8 H* Chloride Carbon Dioxide Anion Gap BUN Creatinine Estimated Creat Clear Estimated GFR Est GFR ( Amer) Glucose POC Glucose 301 H* 304 H* Calcium Troponin I TSH Thyroxine (T4) 10/27/18 10/27/18 10/27/18 16:03 12:17 10:49 Sodium 134 L Potassium 7.0 H* Chloride 99 Carbon Dioxide 33 H Anion Gap 9.0 BUN 49 H Creatinine 2.41 H Estimated Creat Clear 27 Estimated GFR 19 L* Est GFR ( Amer) 23 L Glucose 304 H POC Glucose 346 H* Calcium 8.4 L Troponin I < 0.02 TSH Thyroxine (T4) 10/27/18 10/27/18 08:05 08:05 Sodium 134 L Potassium 7.3 H* Chloride 99 Carbon Dioxide 32 Anion Gap 10.3 BUN 44 H Creatinine 2.41 H Estimated Creat Clear 27 Estimated GFR 19 L* Est GFR ( Amer) 23 L Glucose 321 H D POC Glucose Calcium 8.8 Troponin I < 0.02 TSH 5.16 H D Thyroxine (T4) 8.2 Preliminary micro results at discharge 10/27/18 04:13 Urine Culture - Preliminary Urine,Catheterized NO GROWTH AFTER 24 HOURS DS: Diagnosis - Discharge Diagnosis (1) A-fib Status: Chronic (2) ROSALIA (acute kidney injury) Status: Resolved (3) Hyperkalemia Status: Resolved (4) Altered mental status Status: Chronic Discharge Plan - Patient Discharge Instructions ACTIVITY: Continue current activity Patient Instructions: Atrial Fibrillation, Acute Renal Failure, DI for Atrial Fibrillation, DI for Hyperkalemia - Follow up Plan Disposition: [facility] Home Medications: Home Medications Medication Instructions Recorded Confirmed Type Amlodipine Besylate [Amlodipine 10 mg PO DAILY 06/01/17 10/27/18 History 10mg Tab] Hydrocod/Acet 5/325 mg [[place] 1 tab PO Q4HP PRN 06/01/17 10/27/18 History 5/325mg tablet] Lactulose [Enulose] 10 gm PO DAILYP PRN 06/01/17 10/27/18 History Loratadine 10 mg PO DAILY 06/01/17 10/27/18 History Multivitamin with Minerals 1 each PO DAILY 06/01/17 10/27/18 History [Multivitamins with Minerals] Ondansetron HCl [Zofran 4mg Tab] 4 mg PO Q6HP PRN 06/01/17 10/27/18 History diazePAM [Valium] 1 mg PO HS 06/01/17 10/27/18 History Amiodarone HCl [Amiodarone 100mg 200 mg PO DAILY 07/21/18 10/27/18 History Tab] Apixaban [Eliquis 5mg tab] 5 mg PO BID 07/21/18 10/27/18 History Insulin Glargine,Hum.rec.anlog 70 unit SQ HS 07/21/18 10/27/18 History [Lantus Insulin 100units/mL 10mL vial] Linagliptin [Tradjenta 5mg tablet] 5 mg PO DAILY 07/21/18 10/27/18 History Acetaminophen [8 Hour Pain Relief] 650 mg PO Q6HP PRN 07/22/18 10/27/18 History Calcium Carbonate/Vitamin D3 1 each PO DAILY 07/22/18 10/27/18 History [Oyster Shell-D 250 mg Tablet] Escitalopram Oxalate 10 mg PO DAILY 07/22/18 10/27/18 History Gabapentin [Gabapentin 300mg Cap] 300 mg PO TID 07/22/18 10/27/18 History Insulin Lispro [HumaLOG 100 0 unit SQ DIRECTED 07/22/18 10/27/18 History units/mL 3mL vial (SSI)] Melatonin 5 mg PO HS 07/22/18 10/27/18 History Omeprazole [Omeprazole 40mg 40 mg PO HS 07/22/18 10/27/18 History Capsule] Aspirin [Aspirin 81mg chewable 81 mg PO DAILY 08/22/18 10/27/18 History tab] Furosemide [Furosemide 40MG tAB] 40 mg PO DAILY 10/27/18 10/27/18 History Potassium Chloride [Klor-con 20 20 meq PO DAILY 10/27/18 10/27/18 History mEq tablet] Metoprolol Tartrate [Lopressor 50 mg PO BID #60 tab 10/28/18 Rx 25mg tablet] Prescriptions/Medication Reconciliation: Continued Ondansetron HCl [Zofran 4mg Tab] 4 mg PO Q6HP PRN PRN Reason: Nausea/vomiting Multivitamin with Minerals [Multivitamins with Minerals] 1 each PO DAILY Loratadine 10 mg PO DAILY Lactulose [Enulose] 10 gm PO DAILYP PRN PRN Reason: Constipation diazePAM [Valium] 1 mg PO HS Amiodarone HCl [Amiodarone 100mg Tab] 200 mg PO DAILY Linagliptin [Tradjenta 5mg tablet] 5 mg PO DAILY Insulin Glargine,Hum.rec.anlog [Lantus Insulin 100units/mL 10mL vial] 70 unit SQ HS Melatonin 5 mg PO HS Gabapentin [Gabapentin 300mg Cap] 300 mg PO TID Escitalopram Oxalate 10 mg PO DAILY Calcium Carbonate/Vitamin D3 [[place]-D 250 mg Tablet] 1 each PO DAILY Acetaminophen [8 Hour Pain Relief] 650 mg PO Q6HP PRN PRN Reason: PAIN/FEVER Hydrocod/Acet 5/325 mg [[place] 5/325mg tablet] 1 tab PO Q4HP PRN PRN Reason: PAIN Amlodipine Besylate [Amlodipine 10mg Tab] 10 mg PO DAILY Apixaban [Eliquis 5mg tab] 5 mg PO BID Omeprazole [Omeprazole 40mg Capsule] 40 mg PO HS Insulin Lispro [HumaLOG 100 units/mL 3mL vial (SSI)] 0 unit SQ DIRECTED Aspirin [Aspirin 81mg chewable tab] 81 mg PO DAILY Changed Metoprolol Tartrate [Lopressor 25mg tablet] 50 mg PO BID #60 tab Discontinued Potassium Chloride [Klor-con 20 mEq tablet] 20 meq PO DAILY Furosemide [Furosemide 40MG tAB] 40 mg PO DAILY
[2018-10-28 08:45] LABS: Lymphocytes % 6 % (10-50); Monocytes % 3 % (2-9); Neutrophils % 91 % (42-76); Total Cells Counted 100
[2018-10-28 08:50] LABS: RBC Morphology Normal
== END 2018-10-28 10:53 | DRG 641 ==
LOC: ER 03:41 → 2ND 06:32
PROVIDERS: ADMIT Internal Medicine Adolescent Medicine; ATTEND Internal Medicine Adolescent Medicine

== ENCOUNTER 2018-11-15 10:48 | Inpatient (IN) ==
--- NOTE | 2018-11-15 11:29 | Emergency Department Note ---
ED Disposition Clinical Impression: ROSALIA (acute kidney injury), Pneumonia, Hyperkalemia Disposition: Admitted as Observation Condition on Discharge: Serious Referrals: Saulo Farrell MD [Primary Care Provider] - Time of Disposition: 14:08 - Critical Care Critical Care Time: No Attestation: On 11/15/18, the high probability of a clinically significant, sudden or life threatening deterioration of the following system(s) required my full and direct attention, intervention and personal management. The time I documented below is in addition to time spent performing reported procedures but includes the following listed in this critical care notation. Medical Decision Making - Medical Records Medical records reviewed: Yes: I reviewed the patient's medical records. - Kobe Inquiry Pt receiving controlled substance: No Kobe was queried for this patient: No Vital Signs: 11/15/18 10:49 11/15/18 11:05 11/15/18 11:38 Temperature 98.2 F Temperature Source Oral Pulse Rate Pulse Rate [Left Radial] 42 L 43 L 42 L Respiratory Rate 12 Blood Pressure [Right Arm] 133/82 113/57 L 111/58 L Blood Pressure Mean [Right Arm] 99 75 75 Blood Pressure Source [Right Arm] Automatic Cuff Automatic Cuff Blood Pressure Position [Right Arm] Sitting Sitting 02 Sat by Pulse Oximetry 94 L 97 Oxygen Delivery Method Room Air 11/15/18 12:11 11/15/18 13:23 11/15/18 13:26 Temperature Temperature Source Pulse Rate 48 L Pulse Rate [Left Radial] 42 L 44 L Respiratory Rate Blood Pressure [Right Arm] 111/55 L 133/79 Blood Pressure Mean [Right Arm] 73 97 Blood Pressure Source [Right Arm] Blood Pressure Position [Right Arm] Sitting 02 Sat by Pulse Oximetry 96 Oxygen Delivery Method - Lab Data Lab results reviewed: Yes: I reviewed the patient's lab results. Lab Results 11/15/18 11:32: WBC 8.9, RBC 3.99 L, Hgb 10.8 L, Hct 35.2 L, MCV 88.3, MCH 27.0, MCHC 30.5 L, RDW 18.0 H, Plt Count 137 L, MPV 10.5 H, Neut % (Auto) 77.5, Lymph % (Auto) 16.4, [place] % (Auto) 3.9, Eos % (Auto) 2.0, Baso % (Auto) 0.2, Neut # (Auto) 6.9, Lymph # (Auto) 1.5, [place] # (Auto) 0.3, Eos # (Auto) 0.2, Baso # (Auto) 0.0 11/15/18 11:32: Sodium 137, Potassium 7.3 H*, Chloride 102, Carbon Dioxide 31, Anion Gap 11.3, BUN 66 H, Creatinine 3.27 H, Estimated Creat Clear 16, Estimated GFR 14 L*, Est GFR ( Amer) 16 L*, Glucose 170 H, Calcium 8.7, Troponin I < 0.02 11/15/18 12:15: Urine Color Yellow, Urine Appearance Sl cloudy, Urine pH 5.5, Ur Specific [place] 1.020, Urine Protein Negative, Urine Glucose (UA) Negative, Urine Ketones Negative, Urine Blood Negative, Urine Nitrate Negative, Urine Bilirubin Negative, Urine Urobilinogen 0.2, Ur Leukocyte Esterase Trace, Urine WBC 5-10, Ur Squamous Epith Cells Occasional, Urine Bacteria 4+ Result diagrams: 11/15/18 11:32 11/15/18 11:32 Orders (Tests/Meds): ED MEDICATIONS Discontinued Medications Generic Name Dose Route Start Last Admin Trade Name Freq PRN Reason Stop Dose Admin Albuterol Sulfate 1.25 mg 11/15/18 12:32 11/15/18 13:18 Albuterol 0.042% 1.25mg/3ml Neb IH 11/15/18 12:33 1.25 mg ONCE ONE Administration Dextrose 50 ml 11/15/18 12:27 11/15/18 13:12 Dextrose 50% 50ml Syringe IVP 11/15/18 12:28 50 ml ONCE ONE Administration Calcium Gluconate 1,000 mg/ 35 mls @ 100 mls/hr 11/15/18 12:32 11/15/18 12:57 Sodium Chloride IV 11/15/18 12:52 100 mls/hr ONCE ONE Administration Insulin Human Regular 5 unit 11/15/18 12:25 11/15/18 13:17 Humulin R Insulin 100 Units/Ml 10ml Vial IVP 11/15/18 12:26 5 unit ONCE ONE Administration Sodium Polystyrene Sulfonate 30 gm 11/15/18 12:27 Kayexalate 15gm/60ml Bottle PO 11/15/18 12:28 ONCE ONE ORDERS Category Date Time Status Lactic Acid Stat Lab 11/15/18 13:30 Ordered Magnesium Stat Lab 11/15/18 11:32 Received Blood Culture Stat Micro 11/15/18 13:30 Ordered Urine Culture Stat Micro 11/15/18 12:15 Received - Physician Consults Physician Consulted: obi Time: 14:01 Comment/Response: gave recommendations Additional Consult: guzman Reason -: Admission General Adult HPI - General Chief complaint: Weakness Stated complaint: weakness Time Seen by Provider: 11/15/18 11:25 Mode of Arrival: EMS Source of Information: Patient, Relative Limitations: No Limitations Description of Symptoms (Recalled from ER Triage Doc. by RN): to ed per squad [facility] reports pt with heart rate of 30, hypotensive and weakness starting today. pt admits drowsey arouses to verbal stimuli. pt alert and oriented x 3 denies any c/o at present. cpta IV, given 1mg atropine, bs 109 - History of Present Illness HPI narrative: recent hospitalization [place], Andrea Linder he feels for pneumonia/hypoxia - Related Data Home Medications Medication Instructions Recorded Confirmed Amlodipine Besylate [Amlodipine 10 mg PO DAILY 06/01/17 11/15/18 10mg Tab] Hydrocod/Acet 5/325 mg [[place] 1 tab PO Q4HP PRN 06/01/17 11/15/18 5/325mg tablet] Lactulose [Enulose] 10 gm PO DAILYP PRN 06/01/17 11/15/18 Loratadine 10 mg PO DAILY 06/01/17 11/15/18 Multivitamin with Minerals 1 each PO DAILY 06/01/17 11/15/18 [Multivitamins with Minerals] Ondansetron HCl [Zofran 4mg Tab] 4 mg PO Q6HP PRN 06/01/17 11/15/18 diazePAM [Valium] 1 mg PO HS 06/01/17 11/15/18 Amiodarone HCl [Amiodarone 100mg 200 mg PO DAILY 07/21/18 11/15/18 Tab] Apixaban [Eliquis 5mg tab] 5 mg PO BID 07/21/18 11/15/18 Insulin Glargine,Hum.rec.anlog 70 unit SQ HS 07/21/18 11/15/18 [Lantus Insulin 100units/mL 10mL vial] Linagliptin [Tradjenta 5mg tablet] 5 mg PO DAILY 07/21/18 11/15/18 Acetaminophen [8 Hour Pain Relief] 650 mg PO Q6HP PRN 07/22/18 11/15/18 Calcium Carbonate/Vitamin D3 1 each PO DAILY 07/22/18 11/15/18 [Oyster Shell-D 250 mg Tablet] Escitalopram Oxalate 10 mg PO DAILY 07/22/18 11/15/18 Gabapentin [Gabapentin 300mg Cap] 300 mg PO TID 07/22/18 11/15/18 Insulin Lispro [HumaLOG 100 0 unit SQ DIRECTED 07/22/18 11/15/18 units/mL 3mL vial (SSI)] Melatonin 5 mg PO HS 07/22/18 11/15/18 Omeprazole [Omeprazole 40mg 40 mg PO HS 07/22/18 11/15/18 Capsule] Aspirin [Aspirin 81mg chewable 81 mg PO DAILY 08/22/18 11/15/18 tab] Furosemide [Furosemide 40MG tAB] 1 tab PO DAILY 11/15/18 11/15/18 Lisinopril [Prinivil 5mg Tablet] 5 mg PO DAILY 11/15/18 11/15/18 Metoprolol Tartrate [Lopressor 25 mg PO BID 11/15/18 11/15/18 25mg tablet] Potassium Chloride [Klor-con 20 1 tab PO DAILY 11/15/18 11/15/18 mEq tablet] Allergies Allergy/AdvReac Type Severity Reaction Status Date / Time Sulfa (Sulfonamide Allergy Unknown I-RASH Verified 04/13/18 13:12 Antibiotics) [SULFA (SULFONAMIDE ANTIBIOTICS)] [facility] History - Hepatitis A Screen Drug use history?: No High risk sexual behaviors?: No History of sexually transmitted infection?: No Currently employed?: No Childcare worker?: No Do you have indoor plumbing?: Yes Do you have electricity?: Yes Attestation statement:: This patient has been screened for Hepatitis A risk factors. I have reviewed the patient's past medical history: Yes Medical History: Reports:: Anxiety, Asthma, Atherosclerotic Heart Disease, Atrial Fibrillation, Coronary Artery Disease, Depression, Diabetes Mellitus Type 2, Gastroesophageal Reflux Disease(GERD), Hyperlipidemia, Hypertension Denies:: Cancer, Diabetes Mellitus Type 1, Home Oxygen, Internal Pacemaker, MRSA, Seizures Other Medical History: Reports: Anemia, Other. Denies: Blood Transfusion Reaction Laterality Cases: Left: Carpal Tunnel Release Other Surgeries: Yes: Appendectomy, Cholecystectomy, Hernia Repair, Hyster ectomy-Total, Other (spine surgery). No: Pacemaker Amputation: No Fractures: Yes (SPINAL COMPRESSION FX) Comment: leg, arm x2, tubal, lapchole - Social History Smoking Status: Former smoker Tobacco Type: cigarettes # Packs/Day (cigarettes): 1 #Yrs smoked (if former smoker): 32 Alcohol Intake: never Substance Use Type: denies use Occupational Status: retired Housing: fdc Household Members: caregiver - Psychiatric History Pschychiatric History:: Reports:: Anxiety, Depression Family Hx:: No significant family history, Diabetes ROS Obtained: Yes All systems reviewed & no additional complaints - Constitutional Constitutional: Denies fever(s) - Cardiovascular Cardiovascular: Denies chest pain, Denies chest pain at rest, Denies diaphoresis, Denies dyspnea - Respiratory Respiratory: No chest congestion, No cough, No dyspnea - Integumentary/Breasts Skin/Breast: Denies rash, Denies skin pain - Neurologic Neurologic: Reports weakness, Reports other (near syncope) Physical Exam - General General appearance: alert, in no apparent distress, obese - Head Head exam: atraumatic, normocephalic, normal inspection - Eye Eye exam: Present: normal appearance, PERRL, EOMI - ENT ENT exam: Present: normal exam, normal oropharynx, mucous membranes moist, TM's normal bilaterally, normal external ear exam - Neck Neck exam: Present: normal inspection, full ROM, trachea midline. Absent: meningismus, lymphadenopathy - Chest Chest inspection: Present: normal inspection, symmetric chest wall rise. Absent: tenderness - Respiratory Respiratory exam: Present: normal lung sounds bilaterally. Absent: respiratory distress - Cardiovascular Cardiovascular exam: Present: bradycardia, other (rates to mid-thirties) - Extremities Exam Extremities exam: Present: normal inspection, full ROM, normal capillary refill. Absent: calf tenderness - Back Exam Back exam: Present: normal inspection. Absent: tenderness - Neurological Exam Neurological exam: Present: alert, oriented X3, other (gait not tested) - Psychiatric Psychiatric exam: Present: normal affect, normal mood - Skin Skin exam: Present: warm, dry, intact, normal color
[2018-11-15 11:43] LABS: Basophils % 0.2 % (0.1-2.0); Eosinophils # 0.2 K/mm3 (0.0-0.4); Hematocrit 35.2 % (37.0-47.0); Hemoglobin 10.8 g/dL (12.2-16.2); Lymphocytes # 1.5 K/mm3 (0.7-4.5); Lymphocytes % 16.4 % (10-50); Mean Corpuscular HGB Conc 30.5 g/dL (31.8-35.4); Mean Corpuscular Volume 88.3 fl (81-99); Mean Platelet Volume 10.5 fl (7.4-10.4); Monocytes # 0.3 K/mm3 (0.1-1.0); Monocytes % 3.9 % (1.7-9.3); Neutrophils # 6.9 K/mm3 (1.8-7.8); Neutrophils % 77.5 % (37.0-80.0); Platelet Count 137 K/mm3 (142-424); Red Blood Count 3.99 M/mm3 (4.20-5.40); White Blood Count 8.9 K/mm3 (4.8-10.8)
[2018-11-15 11:58] LABS: Anion Gap 11.3 mEq/L (5-15); Blood Urea Nitrogen 66 mg/dL (7-18); Calcium 8.7 mg/dL (8.5-10.1); Carbon Dioxide 31 mmol/L (21.0-32.0); Chloride 102 mmol/L (98-107); Glucose 170 mg/dL (74-106); Sodium 137 mmol/L (136-145)
[2018-11-15 12:32] LABS: Appearance,Urine SL CLOUDY (Clear); Bilirubin,Urine Negative (Negative); Blood, Urine Negative (Negative); Color,Urine YELLOW (Yellow); Glucose,Urine (UA) Negative (Negative); Ketones,Urine Negative (Negative); Leukocyte Esterase,Urine TRACE (Negative); Microscopic, Urine URINE MICROSCOPIC (MICROSCOPIC); PH,Urine 5.5 (5.0-8.5); Protein,Urine Negative (Negative); Urobilinogen,Urine 0.2 EU/dl (0.2)
[2018-11-15 12:38] LABS: Bacteria,Urine 4+ /lpf; Squamous Epithelial Cell,Urine Occasional #/hpf (0-5)
--- NOTE | 2018-11-15 15:46 | Pharmacy Consult Notes ---
[facility] Pharmacy VTE Monitoring - Patient Demographics Admission date: 11/15/18 Report Date: 11/15/18 Time: 15:45 Allergies/Adverse Reactions: Patient Allergies Sulfa (Sulfonamide Antibiotics) [SULFA (SULFONAMIDE ANTIBIOTICS)] Allergy (Unknown, Verified 04/13/18 13:12) I-RASH Height: 1.65 m Weight: 85.36 kg Patient Problems: Current Active Problems Pneumonia (Acute) ROSALIA (acute kidney injury) (Acute) Hyperkalemia (Acute) - VTE Risk Labs: VTE Related Lab Results Hgb 10.8 g/dL (12.2-16.2) L 11/15/18 11:32 Hct 35.2 % (37.0-47.0) L 11/15/18 11:32 Plt Count 137 K/mm3 (142-424) L 11/15/18 11:32 BUN 66 mg/dL (7-18) H 11/15/18 11:32 Creatinine 3.27 mg/dL (0.55-1.02) H 11/15/18 11:32 Estimated Creat Clear 16 mL/min (50-200) 11/15/18 11:32 Was VTE Risk Assessment Performed: Yes VTE Score: 5 VTE Risk Level: Low Risk - Prophylaxis VTE Prophylaxis Ordered?: Yes Types of VTE Prophylaxis: Pharmacological Pharmacologic Type: Other (ELIQUIS) - VTE Diagnosis Confirmed Treatment or plan recommended: Continue Current Treatment
--- NOTE | 2018-11-15 16:50 | Electrocardiograph Report ---
APPROVED REPORT Exam: Resting ECG HR:35 bpm ECG Measurements Heart Rate 35 AXES QRSd 112 QRS -10 QT 452 T24 QTc 345 <Conclusion> Atrial fibrillation with slow ventricular response Abnormal ECG Electronically signed by : Ga Rodrigues, 11/15/2018 16:49:46
--- NOTE | 2018-11-15 18:21 | History & Physical Report ---
*Admission Date: 11/15/18 *Chief complaint: Lethargy and bradycardia *History of present illness: 78-year-old white female, resident of the [facility] correction, who has had a couple of different episodes of acute kidney injury with hyperkalemia. This occurred at the end of September and she was treated here at [facility] and did well and was discharged back to the correction but on the way back to the correction had an episode of respiratory distress and was taken to the [facility] from where she was transferred to [facility] and was diagnosed with apparently a pericardial effusion and worsening CHF. She was placed on lisinopril at that point which has done apparently well for her but this morning at the correction was noted to be bradycardic and lethargic and was transferred back to the [facility] emergency department. Once again she was noted to have acute kidney injury with creatinine greater than 3, hyperkalemia with potassium greater than 7, and renal was consulted by phone at [facility], who recommended fluids, diuretics and Kayexalate therapy. She is been transferred to the floor in improved condition, with better alertness. [facility] History I have reviewed the patient's past medical history: Yes Medical History: Reports:: Anxiety, Asthma, Atherosclerotic Heart Disease, Atrial Fibrillation, Coronary Artery Disease, Depression, Diabetes Mellitus Type 2, Gastroesophageal Reflux Disease(GERD), Hyperlipidemia, Hypertension Denies:: Cancer, Diabetes Mellitus Type 1, Home Oxygen, Internal Pacemaker, MRSA, Seizures *Have you ever received a pneumonia vaccine?: Yes *Have you received a flu vaccine this season?: Yes Other Medical History: Reports: Anemia, Arthritis, Other. Denies: Blood Transfusion Reaction Laterality Cases: Left: Carpal Tunnel Release Other Surgeries: Yes: Appendectomy, Cholecystectomy, Hernia Repair, Hysterectom y-Total, Other (spine surgery). No: Pacemaker Amputation: No Fractures: Yes (SPINAL COMPRESSION FX) - *Social History Smoking Status: Former smoker Tobacco Type: cigarettes # Packs/Day (cigarettes): 1 #Yrs smoked (if former smoker): 32 Alcohol Intake: never Substance Use Type: denies use *Occupational Status:: retired Housing: correction Household Members: caregiver *Travel in the last 8 weeks: None - Psychiatric History Expresses thoughts of harming self/others: None Suicide Plan Description: No Plan Pschychiatric History:: Reports:: Anxiety, Depression Family Hx:: Unable to obtain, No significant family history, Non-contributory Review of Systems - Review of Systems Review of systems:: pertinent systems reviewed and negative unless documented below Patient is able to reports she feels better, denies any specific pains, nausea or vomiting, otherwise review of systems is difficult to obtain because of her memory deficit. - *Neurologic Reports weakness, Reports other (near syncope) Meds Home Medications Medication Instructions Recorded Confirmed Type Amlodipine Besylate [Amlodipine 10 mg PO DAILY 06/01/17 11/15/18 History 10mg Tab] Hydrocod/Acet 5/325 mg [[place] 1 tab PO Q4HP PRN 06/01/17 11/15/18 History 5/325mg tablet] Lactulose [Enulose] 10 gm PO DAILYP PRN 06/01/17 11/15/18 History Loratadine 10 mg PO DAILY 06/01/17 11/15/18 History Multivitamin with Minerals 1 each PO DAILY 06/01/17 11/15/18 History [Multivitamins with Minerals] Ondansetron HCl [Zofran 4mg Tab] 4 mg PO Q6HP PRN 06/01/17 11/15/18 History diazePAM [Valium] 1 mg PO HS 06/01/17 11/15/18 History Amiodarone HCl [Amiodarone 100mg 200 mg PO DAILY 07/21/18 11/15/18 History Tab] Apixaban [Eliquis 5mg tab] 5 mg PO BID 07/21/18 11/15/18 History Insulin Glargine,Hum.rec.anlog 70 unit SQ HS 07/21/18 11/15/18 History [Lantus Insulin 100units/mL 10mL vial] Linagliptin [Tradjenta 5mg tablet] 5 mg PO DAILY 07/21/18 11/15/18 History Acetaminophen [8 Hour Pain Relief] 650 mg PO Q6HP PRN 07/22/18 11/15/18 History Calcium Carbonate/Vitamin D3 1 each PO DAILY 07/22/18 11/15/18 History [Oyster Shell-D 250 mg Tablet] Escitalopram Oxalate 10 mg PO DAILY 07/22/18 11/15/18 History Insulin Lispro [HumaLOG 100 0 unit SQ DIRECTED 07/22/18 11/15/18 History units/mL 3mL vial (SSI)] Melatonin 5 mg PO HS 07/22/18 11/15/18 History Omeprazole [Omeprazole 40mg 40 mg PO HS 07/22/18 11/15/18 History Capsule] Aspirin [Aspirin 81mg chewable 81 mg PO DAILY 08/22/18 11/15/18 History tab] ARIPiprazole [Aripiprazole 2mg 2 mg PO DAILY 11/15/18 11/15/18 History Tablet] Furosemide [Furosemide 40MG tAB] 40 mg PO BID 11/15/18 11/15/18 History Gabapentin [Gabapentin 100mg Cap] 100 mg PO BID 11/15/18 11/15/18 History Lisinopril [Prinivil 5mg Tablet] 5 mg PO DAILY 11/15/18 11/15/18 History Metoprolol Tartrate [Lopressor 25 mg PO BID 11/15/18 11/15/18 History 25mg tablet] Potassium Chloride [Klor-con 20 20 meq PO DAILY 11/15/18 11/15/18 History mEq tablet] Allergies Allergy/AdvReac Type Severity Reaction Status Date / Time Sulfa (Sulfonamide Allergy Unknown I-RASH Verified 04/13/18 13:12 Antibiotics) [SULFA (SULFONAMIDE ANTIBIOTICS)] Exam Vital signs and Labs for Last 24 Hours: Temp Pulse Resp BP Pulse Ox 98.4 F 44 L 19 96/50 L 97 11/15/18 15:28 11/15/18 15:28 11/15/18 15:28 11/15/18 15:28 11/15/18 15:28 Laboratory Results - last 24 hr 11/15/18 11:32: WBC 8.9, RBC 3.99 L, Hgb 10.8 L, Hct 35.2 L, MCV 88.3, MCH 27.0, MCHC 30.5 L, RDW 18.0 H, Plt Count 137 L, MPV 10.5 H, Neut % (Auto) 77.5, Lymph % (Auto) 16.4, [place] % (Auto) 3.9, Eos % (Auto) 2.0, Baso % (Auto) 0.2, Neut # (Auto) 6.9, Lymph # (Auto) 1.5, [place] # (Auto) 0.3, Eos # (Auto) 0.2, Baso # (Auto) 0.0 11/15/18 11:32: Sodium 137, Potassium 7.3 H*, Chloride 102, Carbon Dioxide 31, Anion Gap 11.3, BUN 66 H, Creatinine 3.27 H, Estimated Creat Clear 16, Estimated GFR 14 L*, Est GFR ( Amer) 16 L*, Glucose 170 H, Calcium 8.7, Troponin I < 0.02 11/15/18 11:32: Magnesium 1.8 11/15/18 12:15: Urine Color Yellow, Urine Appearance Sl cloudy, Urine pH 5.5, Ur Specific [place] 1.020, Urine Protein Negative, Urine Glucose (UA) Negative, Urine Ketones Negative, Urine Blood Negative, Urine Nitrate Negative, Urine Bilirubin Negative, Urine Urobilinogen 0.2, Ur Leukocyte Esterase Trace, Urine WBC 5-10, Ur Squamous Epith Cells Occasional, Urine Bacteria 4+ 11/15/18 13:58: Lactate 0.5 11/15/18 17:39: POC Glucose 181 H I & O for Last 24 hours: Intake & Output 11/13/18 11/14/18 11/15/18 11/16/18 11:59 11:59 11:59 11:59 Weight 165 lb 188 lb 3 oz Narrative: Patient is alert, more so than in the ER. She has no oral lesions. No JVD. Heart rate regular with 2/6 holosystolic murmur. Lungs have rhonchi bilaterally but no crackles. Extremities are slightly edematous and puffy but this seems to be from obesity. Is able to move all extremities well and is eating her supper vigorously. Abdomen is soft and nontender. Assessment and Plan (1) Pericardial effusion Current visit: Yes Status: Acute Category: Medical Code(s): I31.3 - Pericardial effusion (noninflammatory) Questionable history from son. Repeat echocardiogram tomorrow. (2) ROSALIA (acute kidney injury) Current visit: Yes Status: Acute Category: Medical Code(s): N17.9 - Acute kidney failure, unspecified Hold RITIKA inhibitor. Hold antihypertensives tonight. Continue fluid infusions. Watch labs tomorrow (3) Hyperkalemia Current visit: Yes Status: Acute Category: Medical Code(s): E87.5 - Hyperkalemia Telemetry monitoring and labs tomorrow --continue potassium lowering efforts (4) Mental status change resolved Current visit: No Status: Acute Category: Medical Code(s): Z86.59 - Personal history of other mental and behavioral disorders Improving. (5) Obesity (BMI 30.0-34.9) Current visit: No Status: Acute Category: Medical Code(s): E66.9 - Obesity, unspecified Complicates all aspects of her care
--- NOTE | 2018-11-16 06:51 | Progress Note ---
Internal Medicine - PN: Subj *Date: 11/16/18 *Time: 08:53 Interval history: Doing well this morning. No complaint of chest pain, palpitations, nausea, vomiting. Making good urine. Lacey with yellow clear urine. Afebrile. Labs improved this morning. Exam Vital signs and Labs for Last 24 Hours: Temp Pulse Resp BP Pulse Ox 97.9 F 45 L 19 100/43 L 94 L 11/16/18 04:00 11/16/18 04:00 11/16/18 04:00 11/16/18 04:00 11/16/18 04:00 Laboratory Results - last 24 hr 11/15/18 11:32: WBC 8.9, RBC 3.99 L, Hgb 10.8 L, Hct 35.2 L, MCV 88.3, MCH 27.0, MCHC 30.5 L, RDW 18.0 H, Plt Count 137 L, MPV 10.5 H, Neut % (Auto) 77.5, Lymph % (Auto) 16.4, [place] % (Auto) 3.9, Eos % (Auto) 2.0, Baso % (Auto) 0.2, Neut # (Auto) 6.9, Lymph # (Auto) 1.5, [place] # (Auto) 0.3, Eos # (Auto) 0.2, Baso # (Auto) 0.0 11/15/18 11:32: Sodium 137, Potassium 7.3 H*, Chloride 102, Carbon Dioxide 31, Anion Gap 11.3, BUN 66 H, Creatinine 3.27 H, Estimated Creat Clear 16, Estimated GFR 14 L*, Est GFR ( Amer) 16 L*, Glucose 170 H, Calcium 8.7, Troponin I < 0.02 11/15/18 11:32: Magnesium 1.8 11/15/18 12:15: Urine Color Yellow, Urine Appearance Sl cloudy, Urine pH 5.5, Ur Specific [place] 1.020, Urine Protein Negative, Urine Glucose (UA) Negative, Urine Ketones Negative, Urine Blood Negative, Urine Nitrate Negative, Urine Bilirubin Negative, Urine Urobilinogen 0.2, Ur Leukocyte Esterase Trace, Urine WBC 5-10, Ur Squamous Epith Cells Occasional, Urine Bacteria 4+ 11/15/18 13:58: Lactate 0.5 11/15/18 17:39: POC Glucose 181 H 11/15/18 20:49: POC Glucose 184 H 11/16/18 05:33: POC Glucose 207 H I & O for Last 24 hours: Intake & Output 11/13/18 11/14/18 11/15/18 11/16/18 23:59 23:59 23:59 23:59 Intake Total 2091 / 2091 Output Total 775 / 775 Balance 1317 / 1317 Weight 85.36 kg 85.36 kg Narrative: Patient is alert, more so than in the ER. She has no oral lesions. No JVD. Heart rate regular with 2/6 holosystolic murmur. Lungs have rhonchi bilaterally but no crackles. Extremities with out edema. Is able to move all extremities well and is eating her supper vigorously. Abdomen is soft and nontender. Assessment and Plan (1) Pericardial effusion Current visit: Yes Status: Acute Category: Medical Code(s): I31.3 - Pericardial effusion (noninflammatory) (2) ROSALIA (acute kidney injury) Current visit: Yes Status: Acute Category: Medical Code(s): N17.9 - Acute kidney failure, unspecified (3) Hyperkalemia Current visit: Yes Status: Acute Category: Medical Code(s): E87.5 - Hype rkalemia (4) Mental status change resolved Current visit: No Status: Acute Category: Medical Code(s): Z86.59 - Personal history of other mental and behavioral disorders (5) Obesity (BMI 30.0-34.9) Current visit: No Status: Acute Category: Medical Code(s): E66.9 - Obesity, unspecified (6) Chronic anemia Current visit: Yes Status: Chronic Category: Medical Code(s): D64.9 - Anemia, unspecified (7) CHF (congestive heart failure) Current visit: No Status: Chronic Qualifiers: Heart failure type: unspecified Category: Medical Code(s): I50.9 - Heart failure, unspecified Echo performed, read pending. - Assessment and plan all Dx Assessment and Plan for all problems:: Acute kidney injury improving. Potassium normalizing. continue IV rehydration. Continues to require inpatient management.
[2018-11-16 08:01] LABS: Anion Gap 13.7 mEq/L (5-15)
[2018-11-16 08:04] LABS: Basophils % 0.2 % (0.1-2.0); Eosinophils # 0.2 K/mm3 (0.0-0.4); Eosinophils % 2.2 % (0.1-12.0); Hematocrit 31.3 % (37.0-47.0); Lymphocytes # 1.1 K/mm3 (0.7-4.5); Lymphocytes % 15.9 % (10-50); Mean Corpuscular HGB Conc 30.9 g/dL (31.8-35.4); Mean Corpuscular Volume 87.3 fl (81-99); Mean Platelet Volume 10.9 fl (7.4-10.4); Monocytes # 0.4 K/mm3 (0.1-1.0); Monocytes % 5.2 % (1.7-9.3); Neutrophils # 5.3 K/mm3 (1.8-7.8); Neutrophils % 76.5 % (37.0-80.0); Platelet Count 91 K/mm3 (142-424); Red Blood Count 3.59 M/mm3 (4.20-5.40); Red Cell Distribution Width 17.9 % (11.5-17.5); White Blood Count 6.9 K/mm3 (4.8-10.8)
[2018-11-16 08:25] LABS: Calcium 7.8 mg/dL (8.5-10.1)
[2018-11-16 08:30] LABS: Hemoglobin 9.8 g/dL (12.2-16.2)
[2018-11-17 07:51] LABS: Anion Gap 9.6 mEq/L (5-15); Calcium 8.2 mg/dL (8.5-10.1)
[2018-11-17 08:56] LABS: Basophils % 0.1 % (0.1-2.0); Eosinophils # 0.2 K/mm3 (0.0-0.4); Eosinophils % 2.5 % (0.1-12.0); Hematocrit 31.4 % (37.0-47.0); Hemoglobin 9.7 g/dL (12.2-16.2); Lymphocytes # 0.9 K/mm3 (0.7-4.5); Lymphocytes % 13.5 % (10-50); Mean Corpuscular Volume 87.2 fl (81-99); Mean Platelet Volume 10.7 fl (7.4-10.4); Monocytes # 0.3 K/mm3 (0.1-1.0); Monocytes % 4.9 % (1.7-9.3); Neutrophils # 5.1 K/mm3 (1.8-7.8); Neutrophils % 78.9 % (37.0-80.0); Platelet Count 91 K/mm3 (142-424); Red Cell Distribution Width 17.9 % (11.5-17.5); White Blood Count 6.5 K/mm3 (4.8-10.8)
--- NOTE | 2018-11-17 09:13 | Discharge Summary ---
General - General Admission date:: 11/15/18 Discharge date: 11/17/18 HPI HPI: 78-year-old white female, resident of the [facility], who has had a couple of different episodes of acute kidney injury with hyperkalemia. This occurred at the end of September and she was treated here at [facility] and did well and was discharged back to the snf but on the way back to the snf had an episode of respiratory distress and was taken to the [facility] from where she was transferred to [facility] and was diagnosed with apparently a pericardial effusion and worsening CHF. She was placed on lisinopril at that point which has done apparently well for her but this morning at the snf was noted to be bradycardic and lethargic and was transferred back to the [facility] emergency department. Once again she was noted to have acute kidney injury with creatinine greater than 3, hyperkalemia with potassium greater than 7, and renal was consulted by phone at [facility], who recommended fluids, diuretics and Kayexalate therapy. She is been transferred to the floor in improved condition, with better alertness. Hospital Course Hospital Course: Patient improved very nicely with fluid bolusing followed by Lasix administration. Potassium declined and continues to do so and this morning is normal. Acute kidney injury superimposed on chronic kidney disease also improved, with creatinine this morning near her baseline. She was found to have a gram-negative tory urinary tract infection. Cultures are pending. Has responded very nicely to empiric cephalosporin antibiotics. This morning she is doing well. Alert. Oriented x3. Pleasant. Had a long discussion with her about her absolute need to wear her BiPAP device/CPAP device when she is sleeping. Her family reminded her of CO2 buildup issues and she promises that she will do a better job of wearing this device when she is sleeping. Plan will be to discontinue Lacey catheter today. Transfer back to [facility] with medication adjustments to try to reduce incidence of hyperkalemia and ongoing BiPAP therapy at night as well as 1 more week of c ephalosporin antibiotics for her urinary tract infection. Please note I have made multiple medication changes, including stopping several of her medications such as lisinopril and potassium which would cause hyperkalemia. Also discontinued amiodarone given good rate control on metoprolol and its propensity for toxicity. Objective Vital signs: Temp Pulse Resp BP Pulse Ox 98.4 F 67 20 186/69 H 100 11/17/18 08:00 11/17/18 08:00 11/17/18 08:00 11/17/18 08:00 11/17/18 08:00 Narrative: Patient up in chair, wearing 2 L nasal cannula. Lungs have good air movement. Oropharynx clear. No JVD. Heart rate regular, soft flow murmur, 2/6 holosystolic murmur. Abdomen soft and nontender. No extremity edema or clubbing, extremities are warm and well-perfused. Moves all extremities well. No skin breakdown. Results Labs on day of discharge: Labs from last 24 hours 11/17/18 11/17/18 11/16/18 07:05 07:05 20:04 WBC 6.5 RBC 3.60 L Hgb 9.7 L Hct 31.4 L MCV 87.2 MCH 27.0 MCHC 31.0 L RDW 17.9 H Plt Count 91 L MPV 10.7 H Neut % (Auto) 78.9 Lymph % (Auto) 13.5 [place] % (Auto) 4.9 Eos % (Auto) 2.5 Baso % (Auto) 0.1 Neut # (Auto) 5.1 Lymph # (Auto) 0.9 [place] # (Auto) 0.3 Eos # (Auto) 0.2 Baso # (Auto) 0.0 Sodium 143 Potassium 4.6 Chloride 105 Carbon Dioxide 33 H D Anion Gap 9.6 BUN 28 H D Creatinine 1.16 H D Estimated Creat Clear 52 Estimated GFR 45 L Est GFR ( Amer) 54 L D Glucose 123 H POC Glucose 282 H Calcium 8.2 L 11/16/18 11/16/18 16:12 11:40 WBC RBC Hgb Hct MCV MCH MCHC RDW Plt Count MPV Neut % (Auto) Lymph % (Auto) [place] % (Auto) Eos % (Auto) Baso % (Auto) Neut # (Auto) Lymph # (Auto) [place] # (Auto) Eos # (Auto) Baso # (Auto) Sodium Potassium Chloride Carbon Dioxide Anion Gap BUN Creatinine Estimated Creat Clear Estimated GFR Est GFR ( Amer) Glucose POC Glucose 244 H 259 H Calcium Preliminary micro results at discharge 11/15/18 12:15 Urine Culture - Preliminary Urine,Clean Catch Gram Negative Rods DS: Diagnosis - Discharge Diagnosis (1) Pericardial effusion Status: Ruled-out (2) ROSALIA (acute kidney injury) Status: Resolved (3) Hyperkalemia Status: Resolved (4) Mental status change resolved Status: Resolved (5) Obesity (BMI 30.0-34.9) Status: Chronic (6) Chronic anemia Status: Chronic (7) CHF (congestive heart failure) Status: Chronic (8) UTI (urinary tract infection) Status: Acute Discharge Plan - Patient Discharge Instructions ACTIVITY: Continue current activity DIET: continue same diet Patient Instructions: Anemia, DI for Pneumonia -- Adult, Acute Renal Failure, DI for Hyperkalemia - Follow up Plan Follow up with: Madina Walsh APRN [Nurse Practitioner] - Disposition: [facility] Home Medications: Home Medications Medication Instructions Recorded Confirmed Type Amlodipine Besylate [Amlodipine 10 mg PO DAILY 06/01/17 11/15/18 History 10mg Tab] Hydrocod/Acet 5/325 mg [[place] 1 tab PO Q4HP PRN 06/01/17 11/15/18 History 5/325mg tablet] Lactulose [Enulose] 10 gm PO DAILYP PRN 06/01/17 11/15/18 History Loratadine 10 mg PO DAILY 06/01/17 11/15/18 History Multivitamin with Minerals 1 each PO DAILY 06/01/17 11/15/18 History [Multivitamins with Minerals] Ondansetron HCl [Zofran 4mg Tab] 4 mg PO Q6HP PRN 06/01/17 11/15/18 History diazePAM [Valium] 1 mg PO HS 06/01/17 11/15/18 History Amiodarone HCl [Amiodarone 100mg 200 mg PO DAILY 07/21/18 11/15/18 History Tab] Apixaban [Eliquis 5mg tab] 5 mg PO BID 07/21/18 11/15/18 History Insulin Glargine,Hum.rec.anlog 70 unit SQ HS 07/21/18 11/15/18 History [Lantus Insulin 100units/mL 10mL vial] Linagliptin [Tradjenta 5mg tablet] 5 mg PO DAILY 07/21/18 11/15/18 History Acetaminophen [8 Hour Pain Relief] 650 mg PO Q6HP PRN 07/22/18 11/15/18 History Calcium Carbonate/Vitamin D3 1 each PO DAILY 07/22/18 11/15/18 History [Oyster Shell-D 250 mg Tablet] Escitalopram Oxalate 10 mg PO DAILY 07/22/18 11/15/18 History Insulin Lispro [HumaLOG 100 0 unit SQ DIRECTED 07/22/18 11/15/18 History units/mL 3mL vial (SSI)] Melatonin 5 mg PO HS 07/22/18 11/15/18 History Omeprazole [Omeprazole 40mg 40 mg PO HS 07/22/18 11/15/18 History Capsule] Aspirin [Aspirin 81mg chewable 81 mg PO DAILY 08/22/18 11/15/18 History tab] ARIPiprazole [Aripiprazole 2mg 2 mg PO DAILY 11/15/18 11/15/18 History Tablet] Furosemide [Furosemide 40MG tAB] 40 mg PO BID 11/15/18 11/15/18 History Gabapentin [Gabapentin 100mg Cap] 100 mg PO BID 11/15/18 11/15/18 History Lisinopril [Prinivil 5mg Tablet] 5 mg PO DAILY 11/15/18 11/15/18 History Metoprolol Tartrate [Lopressor 25 mg PO BID 11/15/18 11/15/18 History 25mg tablet] Potassium Chloride [Klor-con 20 20 meq PO DAILY 11/15/18 11/15/18 History mEq tablet] Cefdinir [Omnicef 300mg Capsule] 300 mg PO BID #14 cap 11/17/18 Rx Prescriptions/Medication Reconciliation: New Cefdinir [Omnicef 300mg Capsule] 300 mg PO BID #14 cap Continued Ondansetron HCl [Zofran 4mg Tab] 4 mg PO Q6HP PRN PRN Reason: Nausea/vomiting Multivitamin with Minerals [Multivitamins with Minerals] 1 each PO DAILY diazePAM [Valium] 1 mg PO HS Linagliptin [Tradjenta 5mg tablet] 5 mg PO DAILY Insulin Glargine,Hum.rec.anlog [Lantus Insulin 100units/mL 10mL vial] 70 unit SQ HS Acetaminophen [8 Hour Pain Relief] 650 mg PO Q6HP PRN PRN Reason: PAIN/FEVER Furosemide [Furosemide 40MG tAB] 40 mg PO BID Gabapentin [Gabapentin 100mg Cap] 100 mg PO BID Hydrocod/Acet 5/325 mg [[place] 5/325mg tablet] 1 tab PO Q4HP PRN PRN Reason: PAIN Amlodipine Besylate [Amlodipine 10mg Tab] 10 mg PO DAILY Apixaban [Eliquis 5mg tab] 5 mg PO BID Omeprazole [Omeprazole 40mg Capsule] 40 mg PO HS Aspirin [Aspirin 81mg chewable tab] 81 mg PO DAILY Metoprolol Tartrate [Lopressor 25mg tablet] 25 mg PO BID Discontinued Loratadine 10 mg PO DAILY Lactulose [Enulose] 10 gm PO DAILYP PRN PRN Reason: Constipation Amiodarone HCl [Amiodarone 100mg Tab] 200 mg PO DAILY Melatonin 5 mg PO HS Escitalopram Oxalate 10 mg PO DAILY Calcium Carbonate/Vitamin D3 [Oyster Shell-D 250 mg Tablet] 1 each PO DAILY Potassium Chloride [Klor-con 20 mEq tablet] 20 meq PO DAILY Lisinopril [Prinivil 5mg Tablet] 5 mg PO DAILY ARIPiprazole [Aripiprazole 2mg Tablet] 2 mg PO DAILY Insulin Lispro [HumaLOG 100 units/mL 3mL vial (SSI)] 0 unit SQ DIRECTED - Problem Reconciliation Problems Reviewed?: Yes
--- NOTE | 2018-11-18 16:05 | Cardiology Report ---
[facility] RADIOLOGICAL CONSULTATION Patient Name : CHRISTOPHER SCHULER X-RAY # : [id number] Physician: LEHA LOAIZA AGE: 78Y : 1940 00:00:00 ( F ) Exam : CA ECHO DOPPLER COMPLETE ACC # : [id number] Study Date : 11/16/2018 07:29:55 Patient Class : I FINAL REPORT CLINICAL DATA: FINDINGS: IMPRESSION: Dictated by Sylvia Holland at 11/17/2018 12:45:34 PM Transcribed by at
== END 2018-11-17 12:25 | DRG 292 ==
LOC: 2ND 10:48 → ER 10:48 → 2ND 14:44
PROVIDERS: ADMIT Internal Medicine Adolescent Medicine; ATTEND Internal Medicine Adolescent Medicine
CPT/HCPCS: 36415; 71010; 71045; 71250; 80048; 81001; 82962; 83605; 83735; 84484; 85025; 87040; 87086; 87088; 87186; 93005; 93306; 94660; 94761; 96365; 96375; 99285; G0378; J0692; J1956

== ENCOUNTER → 2019-04-29 10:44 | Outpatient (CLI) | payer MEDICARE, MEDICAID, SELFPAY ==
--- NOTE | 2019-04-29 10:44 | US_ITS ---
PROCEDURE: US THYROID CLINICAL INDICATION: THRYOID CYST Follow-up thyroid nodules COMPARISON: THY US thyroid from 03/01/2018 FINDINGS: Right lobe: 3.6 x 2.3 x 2.7 cm. There is a 2.9 x 2 cm well-circumscribed isoechoic hyperechoic nodule in the right lobe not significantly changed. Left lobe: 3.8 x 1.9 x 1.4 cm Isthmus: Unremarkable Additional findings: IMPRESSION: No change 3 cm right thyroid nodule Dictated by: Alex Bowles MD 04/29/2019 13:08 Electronically signed by Alex Bowles MD in [place] 04/29/2019 13:08
[2019-04-29 14:10] LABS: Free T4 (Free Thyroxine) 1.05 ng/dl (0.76-1.46); Thyroid Stimulating Hormone 3.44 uIU/ml (0.358-3.740)
== END ==
PROVIDERS: PCP Internal Medicine Adolescent Medicine; Visit Provider Otolaryngology
DX: E04.1 Nontoxic single thyroid nodule (principal); R41.82 Altered mental status, unspecified
CPT/HCPCS: 36415; 76536; 84439; 84443

== ENCOUNTER → 2019-11-08 14:47 | Outpatient (CLI) | payer MEDICARE, MEDICAID, SELFPAY ==
--- NOTE | 2019-11-08 14:47 | US_ITS ---
PROCEDURE: US THYROID CLINICAL INDICATION: thyroid nod Follow-up thyroid nodule COMPARISON: CR HUML HUMERUS-LT from 01/11/2016 US THY US thyroid from 06/01/2017 US US THYROID from 04/29/2019 FINDINGS: Right lobe: 2.4cm x 4.2cm x 2.4cm Left lobe: 2.0cm x 3.6cm x 1.2cm There is a 2.7 x 2.9 x 2 cm nodule in the mid polar region of the right lobe. This nodule is well-circumscribed and slightly hypoechoic IMPRESSION: No change 3 cm solid nodule right lobe of the thyroid gland. Dictated b Alex Bowles MD 11/09/2019 11:42 Alex Bowles MD in [place] 11/09/2019 11:42
[2019-11-08 17:19] LABS: Free T4 (Free Thyroxine) 0.88 ng/dl (0.78-2.19)
[2019-11-08 17:34] LABS: Thyroid Stimulating Hormone 3.38 uIU/mL (0.465-4.68)
== END ==
PROVIDERS: PCP Internal Medicine Adolescent Medicine; Visit Provider Otolaryngology
DX: E04.1 Nontoxic single thyroid nodule (principal)
CPT/HCPCS: 36415; 76536; 84439; 84443

== ENCOUNTER → 2020-02-27 11:08 | Outpatient (CLI) | payer MEDICARE, MEDICAID, SELFPAY ==
[2020-02-28 14:12] LABS: Covid-19 Nasal PCR Sendout Lex POSITIVE
== END ==
PROVIDERS: Visit Provider Internal Medicine Adolescent Medicine
DX: Z20.828 Contact with and (suspected) exposure to other viral communicable diseases (principal); U07.1 COVID-19
CPT/HCPCS: U0004

== ENCOUNTER → 2020-05-04 14:44 | Outpatient (CLI) | payer MEDICARE, MEDICAID, SELFPAY ==
--- NOTE | 2020-05-04 14:47 | US_ITS ---
PROCEDURE: US THYROID CLINICAL INDICATION: thyroid nodule history Follow up COMPARISON: US US THYROID from 11/08/2019 FINDINGS: Right lobe: 1.6cm x 3.5cm x 2.0cm Left lobe: 1.8cm x 3.0cm x 1.3cm Isthmus: The isthmus is thickened at 6 mm with heterogeneous echogenicity of the isthmus. Additional findings: Study is somewhat limited technically. The patient had to be done upright. No change in the 2.6 x 1.6 cm solid-appearing nodule in the mid polar region on right. IMPRESSION: No change dominant right-sided thyroid nodule 2.6 x 1.6 cm Dictated by: Alex Bowles MD 05/05/2020 14:04 Alex Bowles MD in [place] 05/05/2020 14:04
== END ==
PROVIDERS: PCP Internal Medicine Adolescent Medicine; Visit Provider Otolaryngology
DX: E03.9 Hypothyroidism, unspecified (principal); E04.1 Nontoxic single thyroid nodule
CPT/HCPCS: 76536

== ENCOUNTER 2020-12-19 14:32 | Emergency (ER) | payer MEDICARE, MEDICAID, SELFPAY ==
[2020-12-19] VITALS (11 sets, daily range): BP systolic 118–140; BP diastolic 49–69; PULSE 60–78; RESP 14–28; TEMP 36.6–36.8; O2SAT 94–100; BMI 33.3; BMI 33.4
--- NOTE | 2020-12-19 14:34 | XR_ITS ---
PROCEDURE: XR CHEST PORTABLE CLINICAL HISTORY: cough COMPARISON: No exams were available for comparison FINDINGS: Mild cardiomegaly without failure. Infiltrate once again noted in the left lower lobe which may be slightly improved. Bone plate is present along the left proximal humerus. There is an old left humeral neck fracture. No acute bony abnormalities. IMPRESSION: Persistent but slightly improved left basilar infiltrate Dictated by: Alex Bowles MD 12/19/2020 17:50 Alex Bowles MD in [place] 12/19/2020 17:50
[2020-12-19 14:52] LABS: Basophils # 0.1 K/mm3 (0-0.2); Basophils % 0.7 % (0.1-2.0); Eosinophils # 0.2 K/mm3 (0.0-0.4); Eosinophils % 2.4 % (0.1-12.0); Hematocrit 35.2 % (37.0-47.0); Hemoglobin 10.6 g/dL (12.2-16.2); Lymphocytes # 1.4 K/mm3 (0.7-4.5); Lymphocytes % 16.7 % (10-50); Mean Corpuscular HGB Conc 30.1 g/dL (31.8-35.4); Mean Corpuscular Hemoglobin 27.9 pg (27.0-31.2); Mean Corpuscular Volume 92.6 fl (81-99); Mean Platelet Volume 11.2 fl (7.4-10.4); Monocytes # 0.3 K/mm3 (0.1-1.0); Monocytes % 4.1 % (1.7-9.3); Neutrophils # 6.2 K/mm3 (1.8-7.8); Neutrophils % 76.2 % (37.0-80.0); Platelet Count 130 K/mm3 (142-424); Red Cell Distribution Width 17.6 % (11.5-17.5); White Blood Count 8.1 K/mm3 (4.8-10.8)
--- NOTE | 2020-12-19 14:59 | ECG_ITS ---
APPROVED REPORT Exam: Resting ECG HR:67 bpm ECG Measurements Heart Rate 67 AXES CO 176 P 27 QRSd 88 QRS -11 QT 400 T 46 QTc 422 Conclusion Normal sinus rhythm Normal ECG Electronically signed by : Saulo Farrell MD 12/20/2020 17:28:56
[2020-12-19 15:00] LABS: Alanine Aminotransferase 12 U/L (12-78); Albumin Level 3.6 g/dl (3.5-5.0); Albumin/Globulin Ratio 1.2 (1.1-1.8); Alkaline Phosphatase 52 U/L (38-126); Anion Gap 11.5 mEq/L (5-15); Aspartate Amino Transferase 30 U/L (14-36); Bilirubin,Total 0.8 mg/dl (0.2-1.3); Blood Urea Nitrogen 28 mg/dl (7-17); Calcium 8.5 mg/dl (8.4-10.2); Carbon Dioxide 39 mmol/L (22.0-30.0); Chloride 94 mmol/L (98-107); Creatinine Clearance Estimated 62 mL/min (50-200); Estimated Glomerular Filt Rate 48 ml/min (>60); GFR (African American) 58 ML/MIN (>60); Glucose 82 mg/dl (74-100); Potassium 5.5 mmoL/L (3.5-5.1); Sodium 139 mmol/L (136-145); Total Protein,Serum 6.6 g/dl (6.3-8.2)
--- NOTE | 2020-12-19 15:00 | PC.NURSE ---
BLADDER SCANNER SHOWED 33ML , STRAIGHT CATH PERFORMED FOR CLEAN URINE, OUTPUT 350ML.
[2020-12-19 15:01] LABS: Coronavirus 19, PCR Not Detected (NotDetected); Influenza A, PCR Not Detected (NotDetected); Influenza B, PCR Not Detected (NotDetected)
[2020-12-19 15:02] LABS: Activated Partial Thrombo Time 29.4 seconds (22.8-30.6); Prothrombin Time 11.2 seconds (10.1-12.5)
[2020-12-19 15:12] LABS: NT Pro Brain Natriuretic Pep. 695 pg/mL (0-450)
--- NOTE | 2020-12-19 15:12 | CT_ITS ---
PROCEDURE: CT HEAD/BRAIN WO CON CLINICAL INDICATION: altered mental COMPARISON: CT HEADWO CT head/brain wo con from 05/20/[address] head/brain wo con from 07/21/2018 TECHNIQUE: Axial images obtained. All CT scans at the facility use one or more dose reduction, viz: automated exposure control, ma/kV adjustment per patient size (including targeted exams where dose is matched to indication, i.e. head), or iterative reconstruction technique. FINDINGS: No midline shift, mass effect, intracranial hemorrhage, hydrocephalus, or extra-axial fluid collection is evident. Motion artifact somewhat obscures fine detail. Encephalomalacia changes are present in the left cerebellar hemisphere. There is generalized atrophy with periventricular ischemic gliotic changes. The calvarium has an unremarkable appearance. No mastoid effusion. No sinus air-fluid level. IMPRESSION: No change with no acute finding Dictated by: Alex Bowles MD 12/19/2020 16:02 Alex Bowles MD in [place] 12/19/2020 16:02
[2020-12-19 15:14] LABS: Troponin I < 0.01 ng/ml (0.00-0.034)
[2020-12-19 15:15] LABS: Lipase < 10 U/L (23-300)
[2020-12-19 15:19] LABS: Microscopic, Urine URINE MICROSCOPIC (MICROSCOPIC)
--- NOTE | 2020-12-19 15:21 | PC.NURSE ---
Pt to rad.
[2020-12-19 15:22] LABS: Appearance,Urine CLEAR (Clear); Bilirubin,Urine Negative (Negative); Blood, Urine Negative (Negative); Color,Urine STRAW (Yellow); Glucose,Urine (UA) Negative (Negative); Ketones,Urine Negative (Negative); Leukocyte Esterase,Urine TRACE (Negative); Nitrate,Urine Negative (Negative); Protein,Urine Negative (Negative); Specific Gravity, Urine 1.015 (1.005-1.030); Urobilinogen,Urine 0.2 EU/dl (0.2)
[2020-12-19 15:24] LABS: INR 0.95 (0.9-1.1)
[2020-12-19 15:33] LABS: Barbiturates Screen,Urine Negative ng/ml (<200); Benzodiazepines Screen,Urine Positive ng/ml (<200)
[2020-12-19 15:34] LABS: Amphetamine/Metha Screen,Urine Negative ng/ml (<1000)
[2020-12-19 15:35] LABS: Cannabinoid Screen,Urine Negative ng/ml (<50); Cocaine Screen,Urine Negative ng/ml (<300)
[2020-12-19 15:36] LABS: Methadone Screen,Urine Negative ng/ml (<300); Opiate Screen,Urine Negative ng/ml (<300)
[2020-12-19 15:37] LABS: Phencyclidine Screen,Urine Negative ng/ml (<25)
--- NOTE | 2020-12-19 15:37 | PC.NURSE ---
PT TO CT SCANNER VIA STRETCHER AT THIS TIME.
[2020-12-19 15:38] LABS: Bacteria,Urine 2+ /lpf; Squamous Epithelial Cell,Urine Occasional #/hpf (0-5)
[2020-12-19 15:42] LABS: Lactic Acid 0.9 mmol/L (0.7-2.1)
--- NOTE | 2020-12-19 15:53 | PC.NURSE ---
pt return from rad
[2020-12-19 17:03] LABS: ABG Base Excess 14.1 mmol/L (-2.4-2.3); ABG HCO3 39.5 mmhg (22.0-26.0); ABG Oxygen Saturation 97 % (90-100); ABG PH 7.36 mmol/L (7.35-7.45); ABG PO2 89.5 mmhg (80-100); ABG TCO2 41.7 mmhg (23-27); Allen's Test Acceptable; Oxygen 2L %
[2020-12-19 17:04] LABS: Source Left Radial
[2020-12-19 17:05] LABS: ABG PCO2 71.6 mmhg (35.0-45.0)
--- NOTE | 2020-12-19 17:09 | HMH.EDAMS ---
ED Disposition Clinical Impression: Acute kidney injury, Chronic hyperkalemia UTI (urinary tract infection) Qualifiers: Urinary tract infection type: acute cystitis Hematuria presence: without hematuria Qualified Code(s): N30.00 - Acute cystitis without hematuria Disposition: Xfer Inpatient Rehab Fac Condition on Discharge: Good Instructions: DI for Altered Mental Status Prescriptions: cephALEXin [Cephalexin 500mg Tab] 500 mg PO BID #20 tab Prescription Printed methylPREDNISolone [Medrol 4mg tab] 4 mg PO DIRECTED #21 tab Prescription Printed Referrals: Saulo Farrell MD [Primary Care Provider] - - Critical Care Critical Care Time: No Attestation: On 12/19/20, the high probability of a clinically significant, sudden or life threatening deterioration of the following system(s) required my full and direct attention, intervention and personal management. The time I documented below is in addition to time spent performing reported procedures but includes the following listed in this critical care notation. Medical Decision Making - Medical Records Medical records reviewed: Yes: I reviewed the patient's medical records. - Kobe Inquiry Pt receiving controlled substance: No Vital Signs: 12/19/20 14:33 12/19/20 15:30 12/19/20 16:00 Temperature 97.9 F Temperature Source Oral Pulse Rate 78 60 Pulse Rate [Right] 75 Respiratory Rate 16 16 21 Blood Pressure 137/58 L 119/52 L Blood Pressure [Right Arm] 131/49 L Blood Pressure Mean 84 Blood Pressure Mean [Right Arm] 76 02 Sat by Pulse Oximetry 96 94 L 97 Oxygen Delivery Method Nasal Cannula Oxygen Flow Rate (LPM) 2 12/19/20 16:30 12/19/20 17:00 Temperature Temperature Source Pulse Rate 63 66 Pulse Rate [Right] Respiratory Rate 16 16 Blood Pressure 121/69 118/62 Blood Pressure [Right Arm] Blood Pressure Mean 91 93 Blood Pressure Mean [Right Arm] 02 Sat by Pulse Oximetry 98 100 Oxygen Delivery Method Oxygen Flow Rate (LPM) - Lab Data Lab Results 12/19/20 14:34: Specimen Source Left radial, O2 % 2l, ABG pH 7.36, ABG pCO2 71.6 H, ABG pO2 89.5, ABG HCO3 39.5 H, ABG Total CO2 41.7 H, ABG O2 Saturation 97, ABG Base Excess 14.1 H, Alex Test Acceptable 12/19/20 14:35: WBC 8.1, RBC 3.80 L, Hgb 10.6 L, Hct 35.2 L, MCV 92.6, MCH 27.9, MCHC 30.1 L, RDW 17.6 H, Plt Count 130 L, MPV 11.2 H, Neut % (Auto) 76.2, Lymph % (Auto) 16.7, [place] % (Auto) 4.1, Eos % (Auto) 2.4, Baso % (Auto) 0.7, Neut # (Auto) 6.2, Lymph # (Auto) 1.4, [place] # (Auto) 0.3, Eos # (Auto) 0.2, Baso # (Auto) 0.1 12/19/20 14:35: PT 11.2, INR 0.95, APTT 29.4 12/19/20 14:35: Sodium 139, Potassium 5.5 H, Chloride 94 L, Carbon Dioxide 39 H, Anion Gap 11.5, BUN 28 H, Creatinine 1.10 H, Estimated Creat Clear 62, Estimated GFR 48 L, Est GFR ( Amer) 58 L, Glucose 82, Calcium 8.5, Total Bilirubin 0.8, AST 30, ALT 12, Alkaline Phosphatase 52, Troponin I < 0.01, NT-Pro-B Natriuret Pep 695 H, Total Protein 6.6, Albumin 3.6, Globulin 3.0, Albumin/Globulin Ratio 1.2, Lipase < 10 L, TSH 2.40 12/19/20 14:50: SARS-CoV-2 (PCR) Not detected, Influenza A Untype (PCR) Not detected, Influenza Type B (PCR) Not detected 12/19/20 15:15: Urine Color Straw, Urine Appearance Clear, Urine pH 6.0, Ur Specific [place] 1.015, Urine Protein Negative, Urine Glucose (UA) Negative, Urine Ketones Negative, Urine Blood Negative, Urine Nitrate Negative, Urine Bilirubin Negative, Urine Urobilinogen 0.2, Ur Leukocyte Esterase Trace, Urine WBC 5-10, Ur Squamous Epith Cells Occasional, Urine Bacteria 2+ 12/19/20 15:15: Urine Opiates Screen Negative, Urine Methadone Screen Negative, Ur Barbituates Screen Negative, Ur Phencyclidine Scrn Negative, Ur Amphetamines Screen Negative, U Benzodiazepines Scrn Positive H, Urine Cocaine Screen Negative, U Marijuana (THC) Screen Negative 12/19/20 15:26: Lactate 0.9 Result diagrams: 12/19/20 14:35 12/19/20 14:35 Orders (Tests/Meds): ED MEDICATIONS Generic Nam
--- NOTE | 2020-12-19 18:02 | PC.NURSE ---
dr. hinds paged at this timee
--- NOTE | 2020-12-19 18:05 | PC.NURSE ---
MEDARDO GUERRA speaking with DR. Farrell
--- NOTE | 2020-12-19 18:05 | PC.NURSE ---
[address] hinds
--- NOTE | 2020-12-19 18:06 | PC.NURSE ---
speaking with family
[2020-12-19 18:40] LABS: POC Glucose,Bedside 138 (70-110)
--- NOTE | 2020-12-19 18:44 | PC.NURSE ---
[facility] CALLED FOR REPORT.
--- NOTE | 2020-12-19 18:46 | PC.NURSE ---
REPORT GIVEN TO TANISHA.
[2020-12-19 19:10] LABS: POC Glucose,Bedside 232 (70-110)
--- NOTE | 2020-12-19 19:17 | PC.NURSE ---
[facility] CALLED FOR TRANSPORT BACK TO [place].
== END 2020-12-19 22:28 ==
PROVIDERS: Emergency Provider Emergency Medicine; PCP Internal Medicine Adolescent Medicine
DX: N30.00 Acute cystitis without hematuria (principal); N17.9 Acute kidney failure, unspecified; E87.5 Hyperkalemia; I48.0 Paroxysmal atrial fibrillation; I25.10 Atherosclerotic heart disease of native coronary artery without angina pectoris; E11.9 Type 2 diabetes mellitus without complications; F41.8 Other specified anxiety disorders; E78.5 Hyperlipidemia, unspecified; K21.9 Gastro-esophageal reflux disease without esophagitis; I10 Essential (primary) hypertension; Z79.899 Other long term (current) drug therapy; Z87.891 Personal history of nicotine dependence; Z20.822 Contact with and (suspected) exposure to COVID-19; R06.09 Other forms of dyspnea
CPT/HCPCS: 36415; 70450; 71045; 80053; 80305; 81001; 82803; 82962; 83605; 83690; 83880; 84443; 84484; 85025; 85610; 85730; 87040; 87086; 87088; 87186; 93005; 96365; 96366; 99284; C9803; U0003; U0005

== ENCOUNTER 2021-08-18 05:45 | Inpatient (IN) | payer MEDICARE, MEDICAID, SELFPAY ==
[2021-08-18] VITALS (14 sets, daily range): BP systolic 99–155; BP diastolic 39–79; PULSE 71–98; RESP 15–23; TEMP 36.7–37.2; O2SAT 89–98; BMI 33.3; BMI 34.8
--- NOTE | 2021-08-18 05:35 | ECG_ITS ---
APPROVED REPORT Exam: Resting ECG HR:85 bpm ECG Measurements Heart Rate 85 AXES QRSd 94 QRS 8 QT 362 T 38 QTc 405 Conclusion SUPRAVENTRICULAR RHYTHM INCOMPLETE RIGHT BUNDLE BRANCH BLOCK [90+ ms QRS DURATION, TERMINAL R IN V1/V2, 40+ ms S IN I/aVL/V4/V5/V6] ABNORMAL RHYTHM ECG UNCONFIRMED REPORT Electronically signed by : Saulo Farrell MD 08/19/2021 17:47:35
[2021-08-18 05:42] LABS: POC Glucose,Bedside 344 (70-110)
--- NOTE | 2021-08-18 05:48 | HMH.EDGENADL ---
ED Disposition Clinical Impression: Pneumonia Qualifiers: Pneumonia type: due to unspecified organism Laterality: bilateral Lung location: lower lobe of lung Qualified Code(s): J18.9 - Pneumonia, unspecified organism Sepsis Qualifiers: Sepsis type: sepsis due to unspecified organism Sepsis acute organ dysfunction status: with acute organ dysfunction Severe sepsis acute organ dysfunction type: acute respiratory failure Acute respiratory failure type: with hypoxia Severe sepsis shock status: without septic shock Qualified Code(s): A41.9 - Sepsis, unspecified organism; R65.20 - Severe sepsis without septic shock; J96.01 - Acute respiratory failure with hypoxia Urinary tract infection Qualifiers: Urinary tract infection type: site unspecified Hematuria presence: without hematuria Qualified Code(s): N39.0 - Urinary tract infection, site not specified Disposition: Admitted As Inpatient Condition on Discharge: Undetermined Referrals: Saulo Farrell MD [Primary Care Provider] - - Critical Care Critical Care Time: No Attestation: On , the high probability of a clinically significant, sudden or life threatening deterioration of the following system(s) required my full and direct attention, intervention and personal management. The time I documented below is in addition to time spent performing reported procedures but includes the following listed in this critical care notation. Medical Decision Making - Medical Records Medical records reviewed: Yes: I reviewed the patient's medical records. - Kobe Inquiry Pt receiving controlled substance: No Vital Signs: 08/18/21 04:54 Temperature 98.9 F Temperature Source Oral Pulse Rate [Right] 98 H Respiratory Rate 23 Blood Pressure [Right Arm] 135/46 L Blood Pressure Mean [Right Arm] 75 Blood Pressure Source [Right Arm] Automatic Cuff 02 Sat by Pulse Oximetry 89 L Oxygen Delivery Method Nasal Cannula - Lab Data Lab results reviewed: Yes: I reviewed the patient's lab results. Lab Results 08/18/21 05:35: POC Glucose 344 H* 08/18/21 05:35: WBC 11.6 H, RBC 3.79 L, Hgb 11.7 L, Hct 35.9 L, MCV 94.8, MCH 30.9, MCHC 32.6, RDW 16.8, Plt Count 119 L, MPV 11.1 H, Neut % (Auto) 90.5 H, Lymph % (Auto) 4.8 L, [place] % (Auto) 4.3, Eos % (Auto) 0.2, Baso % (Auto) 0.2, Neut # (Auto) 10.5 H, Lymph # (Auto) 0.6 L, [place] # (Auto) 0.5, Eos # (Auto) 0.0, Baso # (Auto) 0.0, Total Counted 100, Neutrophils % (Manual) 79 H, Band Neutrophils % 16.0 H, Lymphocytes % (Manual) 4 L, Monocytes % (Manual) 1 L, Platelet Estimate Slight decrease, Poikilocytosis 2+, Anisocytosis 2+ 08/18/21 05:35: Troponin I < 0.01, C-Reactive Protein 123.8 H 08/18/21 05:35: Sodium 132 L, Potassium 4.7, Chloride 94 L, Carbon Dioxide 29, Anion Gap 13.7, BUN 46 H, Creatinine 1.20 H, Estimated Creat Clear 51, Estimated GFR 43 L, Est GFR ( Amer) 52 L, Glucose 353 H, Calcium 8.5, Magnesium 1.9, Total Bilirubin 1.1, AST 49 H, ALT 33, Alkaline Phosphatase 103, NT-Pro-B Natriuret Pep 2060 H, Total Protein 6.7, Albumin 3.5, Globulin 3.2, Albumin/Globulin Ratio 1.1 08/18/21 05:35: Lactate 2.5 H Result diagrams: 08/18/21 05:35 08/18/21 05:35 Orders (Tests/Meds): ED MEDICATIONS Generic Name Dose Route Start Last Admin Trade Name Freq PRN Reason Stop Dose Admin Ceftriaxone Sodium 1 gm/ 50 mls @ 100 mls/hr 08/18/21 06:45 08/18/21 06:47 Sodium Chloride IV 09/01/21 06:44 100 mls/hr Q24H [facility] Administration Miscellaneous 1 each 08/18/21 07:00 Vancomycin Consult Request * 09/17/21 06:59 CONSULT PHARMACY [facility] Sodium Chloride 3 ml 08/18/21 05:56 Sodium Chloride 3% 15ml Neb IH 09/17/21 05:55 ONCE PRN INDUCE SPUTUM COLLECTION Discontinued Medications Generic Name Dose Route Start Last Admin Trade Name Freq PRN Reason Stop Dose Admin Ondansetron HCl 4 mg 08/18/21 05:43 08/18/21 06:26 Ondansetron 4mg/2ml Vial IV 08/18/21 05:44 4 mg ONCE ONE Administration ORDERS Category
--- NOTE | 2021-08-18 05:52 | XR_ITS ---
PROCEDURE INFORMATION: Exam: XR Chest Exam date and time: 08/18/2021 5:53 AM Age: 81 years old Clinical indication: Shortness of breath; Additional info: SOA TECHNIQUE: Imaging protocol: XR of the chest. Views: 1 view. COMPARISON: CR XR CHEST PORTABLE 12/19/2020 3:42 PM FINDINGS: Lungs: Asymmetric airspace disease, disproportionately localized in the right lung base. Interstitial prominence and chronic granulomatous disease. Pleural spaces: No significant pleural effusion. Heart/Mediastinum: No cardiomegaly. Bones/joints: Osteopenia and degenerative change. Surgical hardware in association with left humeral fracture. IMPRESSION: Asymmetric airspace disease, disproportionately localized in the right lung base.
[2021-08-18 06:03] LABS: Basophils % 0.2 % (0.1-2.0); Eosinophils % 0.2 % (0.1-12.0); Hematocrit 35.9 % (37.0-47.0); Hemoglobin 11.7 g/dL (12.2-16.2); Lymphocytes # 0.6 K/mm3 (0.7-4.5); Lymphocytes % 4.8 % (10-50); Mean Corpuscular HGB Conc 32.6 g/dL (31.8-35.4); Mean Corpuscular Hemoglobin 30.9 pg (27.0-31.2); Mean Corpuscular Volume 94.8 fl (81-99); Mean Platelet Volume 11.1 fl (7.4-10.4); Monocytes # 0.5 K/mm3 (0.1-1.0); Monocytes % 4.3 % (1.7-9.3); Neutrophils # 10.5 K/mm3 (1.8-7.8); Neutrophils % 90.5 % (37.0-80.0); Platelet Count 119 K/mm3 (142-424); Red Blood Count 3.79 M/mm3 (4.20-5.40); Red Cell Distribution Width 16.8 % (11.5-17.5); White Blood Count 11.6 K/mm3 (4.8-10.8)
[2021-08-18 06:05] LABS: MANUAL DIFFERENTIAL MANUAL DIFFERENTIAL (MANUAL DIFF)
[2021-08-18 06:15] LABS: Alanine Aminotransferase 33 U/L (12-78); Albumin Level 3.5 g/dl (3.5-5.0); Albumin/Globulin Ratio 1.1 (1.1-1.8); Alkaline Phosphatase 103 U/L (38-126); Anion Gap 13.7 mEq/L (5-15); Aspartate Amino Transferase 49 U/L (14-36); Bilirubin,Total 1.1 mg/dl (0.2-1.3); Blood Urea Nitrogen 46 mg/dl (7-17); Calcium 8.5 mg/dl (8.4-10.2); Carbon Dioxide 29 mmol/L (22.0-30.0); Chloride 94 mmol/L (98-107); Estimated Glomerular Filt Rate 43 ml/min (>60); GFR (African American) 52 ML/MIN (>60); Globulin 3.2 g/dL (1.3-3.2); Glucose 353 mg/dl (74-100); Magnesium 1.9 mg/dl (1.6-2.3); Potassium 4.7 mmoL/L (3.5-5.1); Sodium 132 mmol/L (136-145); Total Protein,Serum 6.7 g/dl (6.3-8.2)
[2021-08-18 06:19] LABS: C-Reactive Protein 123.8 mg/L (0-4)
[2021-08-18 06:22] LABS: Creatinine Clearance Estimated 51 mL/min (50-200)
[2021-08-18 06:25] LABS: NT Pro Brain Natriuretic Pep. 2060 pg/mL (0-450)
[2021-08-18 06:28] LABS: Lymphocytes % 4 % (10-50); Monocytes % 1 % (2-9); Neutrophils % 79 % (42-76); Platelet Estimate Slight Decrease; Total Cells Counted 100
[2021-08-18 06:29] LABS: Anisocytosis 2+; Poikilocytosis 2+
[2021-08-18 06:30] LABS: Troponin I < 0.01 ng/ml (0.00-0.034)
[2021-08-18 06:32] LABS: Lactic Acid 2.5 mmol/L (0.7-2.1)
[2021-08-18 06:48] LABS: Microscopic, Urine URINE MICROSCOPIC (MICROSCOPIC)
--- NOTE | 2021-08-18 06:48 | PC.NURSE ---
@ 8600 Dr. Lopez notified pt meets severe sepsis with organ dysfunction with susp UTI as source.
--- NOTE | 2021-08-18 06:50 | PC.NURSE ---
Dr. Lopez s/w Dr. Salazar for admission
--- NOTE | 2021-08-18 06:51 | PC.NURSE ---
supervisor coffee notified for bed assignment.
[2021-08-18 06:52] LABS: Appearance,Urine TURBID (Clear); Bilirubin,Urine Negative (Negative); Blood, Urine 2+ (Negative); Color,Urine YELLOW (Yellow); Glucose,Urine (UA) Negative (Negative); Ketones,Urine Negative (Negative); Leukocyte Esterase,Urine 2+ (Negative); Nitrate,Urine Negative (Negative); Protein,Urine TRACE (Negative); Specific Gravity, Urine 1.025 (1.005-1.030); Urobilinogen,Urine 0.2 EU/dl (0.2)
--- NOTE | 2021-08-18 06:55 | PC.NURSE ---
called Night-watch for vancomycin dosing, s/w Franco
[2021-08-18 06:58] LABS: Coronavirus 19, PCR Not Detected (NotDetected); Influenza A, PCR Not Detected (NotDetected); Influenza B, PCR Not Detected (NotDetected)
[2021-08-18 07:18] LABS: Bacteria,Urine 2+ /lpf; RBC,Urine 20-50 #/hpf (0-3); WBC,Urine TNTC #/hpf (0-3)
--- NOTE | 2021-08-18 07:25 | PC.NURSE ---
family at bedside
--- NOTE | 2021-08-18 07:51 | PC.NURSE ---
report called to floor
--- NOTE | 2021-08-18 08:56 | HMH.PHACONS ---
- Pharmacy Consult Date: 08/18/21 Time: 08:56 Referring provider: DR. LOAIZA Reason for Consult:: VANCOMYCIN DOSING Allergies and ADEs:: Allergies Allergy/AdvReac Type Severity Reaction Status Date / Time Sulfa (Sulfonamide Allergy Unknown I-RASH Verified 12/19/20 16:40 Antibiotics) [SULFA (SULFONAMIDE ANTIBIOTICS)] Home Medications:: Home Medications Medication Instructions Recorded Confirmed Type Amlodipine Besylate [Amlodipine 10 mg PO DAILY 06/01/17 08/18/21 History 10mg Tab] Multivitamin with Minerals 1 each PO DAILY 06/01/17 08/18/21 History [Multivitamins with Minerals] diazePAM [Diazepam 2mg tablets] 1 mg PO HS 06/01/17 08/18/21 History ondansetron HCL [Zofran 4mg Tab*] 4 mg PO Q6HP PRN 06/01/17 08/18/21 History Insulin Glargine,Hum.rec.anlog 70 unit SQ HS 07/21/18 08/18/21 History [Lantus Insulin 100units/mL 10mL vial] Linagliptin [Tradjenta 5mg tablet] 5 mg PO DAILY 07/21/18 08/18/21 History Acetaminophen [8 Hour Pain Relief] 500 mg PO Q6HP PRN 07/22/18 08/18/21 History Omeprazole [Omeprazole 40mg 20 mg PO HS 07/22/18 08/18/21 History Capsule] Aspirin [Aspirin 81mg chewable 81 mg PO DAILY 08/22/18 08/18/21 History tab] Furosemide [Furosemide 40MG tAB*] 40 mg PO BID 11/15/18 08/18/21 History Metoprolol Tartrate [Lopressor 50 mg PO BID 11/15/18 08/18/21 History 25mg tablet] aripiprazole 2 mg tablet 2 mg PO DAILY tab 04/26/19 08/18/21 History escitalopram oxalate 10 mg tablet 10 mg PO DAILY tab 04/26/19 08/18/21 History insulin glargine 100 unit/mL (3 100 unit SQ ONCE ml 04/26/19 08/18/21 History mL) subcutaneous pen Ferrous Sulfate [Ferrous Sulfate 325 mg pe PO BID MDD chf 08/18/21 08/18/21 History 325mg Tablet] Loratadine 10 mg PO DAILY 08/18/21 08/18/21 History Melatonin/Pyridoxine [Melatonin 5 1 each PO Q12 PRN 08/18/21 08/18/21 History mg Tablet] Psyllium Husk (with Sugar) 3.4 gm PO DAILY 08/18/21 08/18/21 History [Metamucil Packet] polyethylene glycoL 3350 [Miralax 17 gm PO DAILY 08/18/21 08/18/21 History 17gm Packet] Height: 1.55 m Weight: 83.603 kg Laboratory Results:: Laboratory Results - last 24 hr 08/18/21 05:35: POC Glucose 344 H* 08/18/21 05:35: WBC 11.6 H, RBC 3.79 L, Hgb 11.7 L, Hct 35.9 L, MCV 94.8, MCH 30.9, MCHC 32.6, RDW 16.8, Plt Count 119 L, MPV 11.1 H, Neut % (Auto) 90.5 H, Lymph % (Auto) 4.8 L, [place] % (Auto) 4.3, Eos % (Auto) 0.2, Baso % (Auto) 0.2, Neut # (Auto) 10.5 H, Lymph # (Auto) 0.6 L, [place] # (Auto) 0.5, Eos # (Auto) 0.0, Baso # (Auto) 0.0, Total Counted 100, Neutrophils % (Manual) 79 H, Band Neutrophils % 16.0 H, Lymphocytes % (Manual) 4 L, Monocytes % (Manual) 1 L, Platelet Estimate Slight decrease, Poikilocytosis 2+, Anisocytosis 2+ 08/18/21 05:35: Troponin I < 0.01, C-Reactive Protein 123.8 H 08/18/21 05:35: Sodium 132 L, Potassium 4.7, Chloride 94 L, Carbon Dioxide 29, Anion Gap 13.7, BUN 46 H, Creatinine 1.20 H, Estimated Creat Clear 51, Estimated GFR 43 L, Est GFR ( Amer) 52 L, Glucose 353 H, Calcium 8.5, Magnesium 1.9, Total Bilirubin 1.1, AST 49 H, ALT 33, Alkaline Phosphatase 103, NT-Pro-B Natriuret Pep 2060 H, Total Protein 6.7, Albumin 3.5, Globulin 3.2, Albumin/Globulin Ratio 1.1 08/18/21 05:35: Lactate 2.5 H 08/18/21 06:40: Urine Color Yellow, Urine Appearance Turbid, Urine pH 5.0, Ur Specific [place] 1.025, Urine Protein Trace, Urine Glucose (UA) Negative, Urine Ketones Negative, Urine Blood 2+, Urine Nitrate Negative, Urine Bilirubin Negative, Urine Urobilinogen 0.2, Ur Leukocyte Esterase 2+ A, Urine RBC 20-50, Urine WBC Tntc, Ur Squamous Epith Cells None, Urine Bacteria 2+ 08/18/21 06:46: SARS-CoV-2 (PCR) Not detected, Influenza A Untype (PCR) Not detected, Influenza Type B (PCR) Not detected Medical History: Reports:: Anxiety, Asthma, Atherosclerotic Heart Disease, Atrial Fibrillation, Coronary Artery Disease, Depression, Diabetes Mellitus Type 2, Gastroesophageal Reflux Disease(GERD
[2021-08-18 10:20] LABS: Reflex Lactic Add Lactic Reflex
[2021-08-18 10:58] LABS: Lactic Acid Follow Up (RFLX 1) 1.3 mmol/L (0.7-2.1)
[2021-08-18 11:31] LABS: POC Glucose,Bedside 404 (70-110)
--- NOTE | 2021-08-18 13:39 | PC.NURSE ---
small red area noted to pt coccyx upon admission. unable to upload picture at this time. camera inoperable.
--- NOTE | 2021-08-18 16:45 | PC.NURSE ---
fsbs glucose obtained and registered high . stat glucose ordered per protocol. lab notified.
--- NOTE | 2021-08-18 16:57 | PC.NURSE ---
late entry 1657- md acosta notified of critical glucose level of 711. 50 units humalog lispro sq once ordered.
[2021-08-18 17:37] LABS: Glucose,Random 711 mg/dL (74-100)
[2021-08-18 18:12] LABS: Acetone, Serum (Rapid) None Detected (None Detect)
--- NOTE | 2021-08-18 19:00 | HMH.HP ---
*Admission Date: 08/18/21 *Chief complaint: Fever/difficulty breathing *History of present illness: Patient is an 81-year-old female with a history of COPD presenting for worsening rales and shortness of breath with associated hypoxia. Differential diagnosis includes, but is not limited to, COPD exacerbation, pneumonia, ACS, CHF exacerbation, volume overload, other underlying infection, electrolyte abnormality. On initial exam, patient is alert, oriented and normotensive. She does have an increased oxygen requirement of 4.5 L on nasal cannula. ABG shows PaO2 of 45. Glucose is also elevated but no acidemia present. Patient was evaluate CBC, CMP, lactic acid, CRP, magnesium, troponin, BMP, UA, urine culture, blood culture, chest x-ray, EKG, COVID-19 screen/flu swab. Patient states she is supposed to wear BiPAP at night but does not. She denies wearing it today. Trialed on BiPAP. Lab work is significant for elevated CRP of approximately 120, leukocytosis. Additionally, patient has an elevated lactic acid of 2.5. Due to concern for volume overload, she was not given fluids included in the sepsis bundle but was given 500 cc of IV fluids. Normotensive very mildly tachycardic, temperature 100.2, I do not believe aggressive fluid resuscitation is necessary at this time and may be harmful. X-ray shows bilateral patchy opacities and consolidation in the right lower lobe. Started on ceftriaxone. Vancomycin was added due the fact that most recent urine cultures grew out a methicillin resistant Staphylococcus. Admitted for further work-up and care. Above note per ER. Patient is a resident of local correction. Has felt poorly for about 12 hours. Appropriately sent to ER where she was found to be criteria for sepsis. Admitted, appropriate antibiotics started. Patient already feels better and lactate levels have already started to decline. Glucose levels been high through the day on the hospital floor. [facility] History I have reviewed the patient's past medical history: Yes Medical History: Reports:: Anxiety, Asthma, Atherosclerotic Heart Disease, Atrial Fibrillation, Congestive Heart Failure, Coronary Artery Disease, Depression, Diabetes Mellitus Type 2, Gastroesophageal Reflux Disease(GERD), Hyperlipidemia, Hypertension Denies:: Cancer, Diabetes Mellitus Type 1, Home Oxygen, Internal Pacemaker, MRSA, Seizures *Have you ever received a pneumonia vaccine?: Yes *Have you received a flu vaccine this season?: Yes Other Medical History: Reports: Anemia, Arthritis, Other. Denies: Blood Transfusion Reaction Laterality Cases: Left: Carpal Tunnel Release Other Surgeries: Yes: Angiogram, Appendectomy, Cholecystectomy, Hernia Repair, Hysterectomy-Total, Other (spine surgery). No: Pacemaker Amputation: No Fractures: Yes (SPINAL COMPRESSION FX) - *Social History Smoking Status: Former smoker Tobacco Type: cigarettes # Packs/Day (cigarettes): 1 #Yrs smoked (if former smoker): 32 Alcohol Intake: never Substance Use Type: denies use *Occupational Status:: retired Housing: correction Household Members: caregiver *Travel in the last 8 weeks: None - Psychiatric History Pschychiatric History:: Reports:: Anxiety, Depression Family Hx:: Unable to obtain, No significant family history, Non-contributory Review of Systems - Review of Systems Review of systems:: pertinent systems reviewed and negative unless documented below - *Neurologic Denies confusion, Denies localized weakness, Denies frequent falls, Denies tingling/numbness/burning sensations Meds Home Medications Medication Instructions Recorded Confirmed Type Amlodipine Besylate [Amlodipine 10 mg PO DAILY 06/01/17 08/18/21 History 10mg Tab] Multivitamin with Minerals 1 each PO DAILY 06/01/17 08/18/21 History [Multivitamins with Minerals] diazePAM [Diazepam 2mg tablets] 2 mg PO HS 06/01/17 08/18/21 History Insulin Glargine,Hum.rec.anlog 90 unit SQ HS 07/21/18 08/18/21 History [Lant
[2021-08-18 20:31] LABS: ABG Base Excess 6.3 mmol/L (-2.4-2.3); ABG HCO3 30.5 mmhg (22.0-26.0); ABG Oxygen Saturation 83 % (90-100); ABG PH 7.44 mmol/L (7.35-7.45); ABG TCO2 31.9 mmhg (23-27)
[2021-08-19] VITALS (8 sets, daily range): BP systolic 122–189; BP diastolic 49–96; PULSE 57–80; RESP 17–22; TEMP 36.3–36.8; O2SAT 93–98; BMI 36.1; BMI 35.8
[2021-08-19 00:52] LABS: POC Glucose,Bedside 505 (70-110)
[2021-08-19 01:10] LABS: POC Glucose,Bedside 325 (70-110)
[2021-08-19 06:30] LABS: POC Glucose,Bedside 196 (70-110)
[2021-08-19 06:47] LABS: Basophils % 0.4 % (0.1-2.0); Hematocrit 30.9 % (37.0-47.0); Lymphocytes # 0.9 K/mm3 (0.7-4.5); Lymphocytes % 8.9 % (10-50); Mean Corpuscular HGB Conc 32.3 g/dL (31.8-35.4); Mean Corpuscular Hemoglobin 30.8 pg (27.0-31.2); Mean Corpuscular Volume 95.4 fl (81-99); Mean Platelet Volume 11.1 fl (7.4-10.4); Monocytes # 0.4 K/mm3 (0.1-1.0); Monocytes % 3.9 % (1.7-9.3); Neutrophils # 8.8 K/mm3 (1.8-7.8); Neutrophils % 86.9 % (37.0-80.0); Platelet Count 134 K/mm3 (142-424); Red Blood Count 3.24 M/mm3 (4.20-5.40); White Blood Count 10.1 K/mm3 (4.8-10.8)
[2021-08-19 06:49] LABS: Alanine Aminotransferase 27 U/L (12-78); Albumin Level 3.3 g/dl (3.5-5.0); Albumin/Globulin Ratio 1.1 (1.1-1.8); Alkaline Phosphatase 95 U/L (38-126); Anion Gap 9.7 mEq/L (5-15); Aspartate Amino Transferase 19 U/L (14-36); Blood Urea Nitrogen 43 mg/dl (7-17); Calcium 8.4 mg/dl (8.4-10.2); Carbon Dioxide 36 mmol/L (22.0-30.0); Chloride 95 mmol/L (98-107); Creatinine Clearance Estimated 45 mL/min (50-200); Estimated Glomerular Filt Rate 39 ml/min (>60); GFR (African American) 47 ML/MIN (>60); Globulin 2.9 g/dL (1.3-3.2); Glucose 208 mg/dl (74-100); Potassium 4.7 mmoL/L (3.5-5.1); Sodium 136 mmol/L (136-145); Total Protein,Serum 6.2 g/dl (6.3-8.2)
[2021-08-19 06:50] LABS: MANUAL DIFFERENTIAL MANUAL DIFFERENTIAL (MANUAL DIFF)
[2021-08-19 06:56] LABS: Bilirubin,Total 0.1 mg/dl (0.2-1.3)
[2021-08-19 07:02] LABS: Lymphocytes % 6 % (10-50); Monocytes % 5 % (2-9); Neutrophils % 88 % (42-76); Total Cells Counted 100
[2021-08-19 07:03] LABS: Anisocytosis 1+; Hypochromasia 1+; Ovalocytes 1+; Platelet Estimate Slight Decrease
--- NOTE | 2021-08-19 07:32 | PC.NURSE ---
Called Dr. acosta Pt blood cultures were positive gram + cultures. No new orders at this time.
[2021-08-19 07:39] LABS: Allen's Test ACCEPTABLE; Oxygen 3 %; Source Right Radial
[2021-08-19 07:40] LABS: ABG PO2 45.7 mmhg (80-100)
--- NOTE | 2021-08-19 08:26 | HMH.ACPN2 ---
Internal Medicine - PN: Subj *Date: 08/19/21 *Time: 08:26 Interval history: Overall patient feels better, is alert, pleasant. Recognizes me. Reviewed labs and urine and cultures. Exam Vital signs and Labs for Last 24 Hours: Temp Pulse Resp BP Pulse Ox 98.1 F 59 L 17 134/59 L 93 L 08/19/21 04:00 08/19/21 04:00 08/19/21 04:00 08/19/21 04:00 08/19/21 04:00 Laboratory Results - last 24 hr 08/18/21 05:45: Specimen Source Right radial, O2 % 3, ABG pH 7.44, ABG pCO2 46.0 H, ABG pO2 45.7 L, ABG HCO3 30.5 H, ABG Total CO2 31.9 H, ABG O2 Saturation 83 L*, ABG Base Excess 6.3 H, Alex Test Acceptable 08/18/21 10:34: Lactate 1.3 08/18/21 11:17: POC Glucose 404 H* 08/18/21 16:57: Random Glucose 711 H* 08/18/21 17:50: Acetone Level None detected 08/18/21 22:03: POC Glucose 505 H* 08/19/21 01:03: POC Glucose 325 H* 08/19/21 06:20: POC Glucose 196 H 08/19/21 06:25: WBC 10.1, RBC 3.24 L, Hgb 10.0 L, Hct 30.9 L, MCV 95.4, MCH 30.8, MCHC 32.3, RDW 17.0, Plt Count 134 L, MPV 11.1 H, Neut % (Auto) 86.9 H, Lymph % (Auto) 8.9 L, [place] % (Auto) 3.9, Eos % (Auto) 0.0 L, Baso % (Auto) 0.4, Neut # (Auto) 8.8 H, Lymph # (Auto) 0.9, [place] # (Auto) 0.4, Eos # (Auto) 0.0, Baso # (Auto) 0.0, Total Counted 100, Neutrophils % (Manual) 88 H, Band Neutrophils % 1.0, Lymphocytes % (Manual) 6 L, Monocytes % (Manual) 5, Platelet Estimate Slight decrease, Hypochromasia 1+, Anisocytosis 1+, Ovalocytes 1+ 08/19/21 06:25: Sodium 136, Potassium 4.7, Chloride 95 L, Carbon Dioxide 36 H, Anion Gap 9.7, BUN 43 H, Creatinine 1.30 H, Estimated Creat Clear 45, Estimated GFR 39 L, Est GFR ( Amer) 47 L, Glucose 208 H, Calcium 8.4, Total Bilirubin 0.1 L, AST 19 D, ALT 27, Alkaline Phosphatase 95, Total Protein 6.2 L, Albumin 3.3 L, Globulin 2.9, Albumin/Globulin Ratio 1.1 I & O for Last 24 hours: Intake & Output 08/16/21 08/17/21 08/18/21 08/19/21 11:59 11:59 11:59 11:59 Intake Total 240 / 240 1375 / 1375 Output Total 1600 / 1600 Balance 240 / 240 -225 / -225 Weight 184 lb 5 oz 191 lb 6.4 oz Microbiology Reports for the Last 24 Hours: Microbiology 08/18/21 06:40 Urine,Catheterized Urine Culture - Preliminary 08/18/21 05:35 Blood Blood Culture - Preliminary Narrative: Alert, oriented. Rhonchi in the left lower lung field. Abdomen soft, heart rate regular. Lacey catheter draining clear urine. No significant edema. Neurologically intact. Assessment and Plan (1) Insulin-requiring or dependent type II diabetes mellitus Status: Acute Category: Medical Code(s): E11.9 - Type 2 diabetes mellitus without complications; Z79.4 - buttermaker helper (current) use of insulin (2) Pneumonia Status: Acute Qualifiers: Pneumonia type: due to unspecified organism Laterality: bilateral Lung location: lower lobe of lung Qualified Code(s): J18.9 - Pneumonia, unspecified organism Category: Medical Code(s): J18.9 - Pneumonia, unspecified organism (3) Sepsis Status: Acute Qualifiers: Sepsis type: sepsis due to unspecified organism Sepsis acute organ dysfunction status: with acute organ dysfunction Severe sepsis acute organ dysfunction type: acute respiratory failure Acute respiratory failure type: with hypoxia Severe sepsis shock status: without septic shock Qualified Code(s): A41.9 - Sepsis, unspecified organism; R65.20 - Severe sepsis without septic shock; J96.01 - Acute respiratory failure with hypoxia Category: Medical Code(s): A41.9 - Sepsis, unspecified organism (4) Acute kidney injury Status: Acute Category: Medical Code(s): N17.9 - Acute kidney failure, unspecified (5) Acute respiratory failure with hypercapnia Status: Acute Category: Medical Code(s): J96.02 - Acute respiratory failure with hypercapnia (6) CHF (congestive heart failure) Status: Chronic Qualifiers: Heart failure type: unspecified Category: Medical Code(s): I50.9 - Heart failure, unspecified (7
[2021-08-19 11:33] LABS: POC Glucose,Bedside 312 (70-110)
--- NOTE | 2021-08-19 14:54 | DIET.NUTRFU ---
Upon visit patient does not wear any teeth and she indicated the NH cuts her meats really small. She claims she has good appetite. Will update our current diet to chopped meats to help with tolerance. Was unable to verify diet with NH via phone. Spoke to nursing and she did tolerate pizza for lunch with good meal intake.
[2021-08-19 16:11] LABS: POC Glucose,Bedside 341 (70-110)
--- NOTE | 2021-08-19 16:31 | PC.NURSE ---
PT IS RESTING IN BED. NO COMPLAINTS OF DISCOMFORT. PT TOLERATED SITTING UP IN THE CHAIR FOR SEVERAL HOURS THIS AFTERNOON. PT HAS URINATED SINCE CATHETER WAS DC'D. EATING AND DRINKING WELL. LUNG SOUNDS HAVE LEFT SIDED RHONCHI. ABDOMEN SOFT/NON TENDER WITH ACTIVE BOWEL SOUNDS. PT IS 2 ASSIST TRANSFER. WILL CONTINUE TO MONITOR.
[2021-08-19 22:15] LABS: POC Glucose,Bedside 271 (70-110)
[2021-08-20] VITALS (9 sets, daily range): BP systolic 126–162; BP diastolic 43–75; PULSE 60–96; RESP 17–22; TEMP 36.6–37.2; O2SAT 90–97; BMI 36.3
[2021-08-20 05:56] LABS: POC Glucose,Bedside 124 (70-110)
[2021-08-20 07:44] LABS: Alanine Aminotransferase 23 U/L (12-78); Albumin Level 3.1 g/dl (3.5-5.0); Albumin/Globulin Ratio 1.1 (1.1-1.8); Alkaline Phosphatase 94 U/L (38-126); Anion Gap 8.5 mEq/L (5-15); Aspartate Amino Transferase 22 U/L (14-36); Bilirubin,Total 0.2 mg/dl (0.2-1.3); Blood Urea Nitrogen 36 mg/dl (7-17); Calcium 8.4 mg/dl (8.4-10.2); Carbon Dioxide 34 mmol/L (22.0-30.0); Chloride 101 mmol/L (98-107); Creatinine Clearance Estimated 59 mL/min (50-200); Estimated Glomerular Filt Rate 60 ml/min (>60); GFR (African American) 72 ML/MIN (>60); Globulin 2.7 g/dL (1.3-3.2); Glucose 112 mg/dl (74-100); Magnesium 2.1 mg/dl (1.6-2.3); Potassium 4.5 mmoL/L (3.5-5.1); Sodium 139 mmol/L (136-145); Total Protein,Serum 5.8 g/dl (6.3-8.2)
--- NOTE | 2021-08-20 08:30 | HMH.ACPN2 ---
Internal Medicine - PN: Subj *Date: 08/20/21 *Time: 15:49 Interval history: Patient denies any acute events overnight however has had persistent nausea. Poor p.o. intake. Tolerating Zofran with minimal help. No diarrhea. Feels poor compared to yesterday. Stable on 4 L nasal cannula oxygen. No chest pain Exam Vital signs and Labs for Last 24 Hours: Temp Pulse Resp BP Pulse Ox 98.3 F 70 18 135/58 L 95 08/20/21 11:14 08/20/21 12:00 08/20/21 11:14 08/20/21 11:14 08/20/21 11:14 Laboratory Results - last 24 hr 08/19/21 15:55: POC Glucose 341 H* 08/19/21 21:46: POC Glucose 271 H 08/20/21 05:06: POC Glucose 124 H 08/20/21 06:23: Hemoglobin A1c 7.5 H 08/20/21 06:23: Sodium 139, Potassium 4.5, Chloride 101, Carbon Dioxide 34 H, Anion Gap 8.5, BUN 36 H, Creatinine 0.90 D, Estimated Creat Clear 59, Estimated GFR 60, Est GFR ( Amer) 72 D, Glucose 112 H D, Calcium 8.4, Magnesium 2.1 D, Total Bilirubin 0.2, AST 22, ALT 23, Alkaline Phosphatase 94, Total Protein 5.8 L, Albumin 3.1 L, Globulin 2.7, Albumin/Globulin Ratio 1.1 08/20/21 07:07: WBC 11.8 H, RBC 3.18 L, Hgb 9.8 L, Hct 30.4 L, MCV 95.6, MCH 30.8, MCHC 32.2, RDW 16.9, Plt Count 154, MPV 11.0 H, Neut % (Auto) 84.9 H, Lymph % (Auto) 10.0, [place] % (Auto) 4.0, Eos % (Auto) 0.6, Baso % (Auto) 0.4, Neut # (Auto) 10.0 H, Lymph # (Auto) 1.2, [place] # (Auto) 0.5, Eos # (Auto) 0.1, Baso # (Auto) 0.1 08/20/21 11:46: POC Glucose 123 H 08/20/21 14:10: Vancomycin Trough 10.9 H I & O for Last 24 hours: Intake & Output 08/17/21 08/18/21 08/19/21 08/20/21 23:59 23:59 23:59 23:59 Intake Total 1615 / 1615 2218 / 2218 1310 / 1310 Output Total 2600 / 2600 Balance 1615 / 15 -382 / -382 1310 / 1310 Weight 83.603 kg 86 kg 87.362 kg Microbiology Reports for the Last 24 Hours: Microbiology 08/18/21 09:30 Sputum - Expectorated Sputum Gram Stain - Final 08/18/21 06:40 Urine,Catheterized Urine Culture - Preliminary 08/18/21 05:35 Blood Blood Culture - Preliminary NO GROWTH AFTER 48 HOURS Narrative: - Constitutional minimal distress, obese, chronically ill appearing - *Routine HEENT Exam Head: Present: normocephalic Eye: Present: EOMI, PERRL ENT: Present: mucous membranes moist - *Routine Neck Exam Present: supple. Absent: lymphadenopathy - *Routine Respiratory Exam Present: rales - *Routine Cardiovascular Exam Present: RRR, murmur - *Routine Abdominal Exam Present: soft, normoactive bowel sounds. Absent: tenderness - *Routine Extremities Exam Absent: cyanosis, clubbing, edema - *Routine Skin Exam Present: warm. Absent: rash - *Routine Neurological Exam Present: alert, oriented X3 Assessment and Plan (1) Insulin-requiring or dependent type II diabetes mellitus Status: Acute Category: Medical Code(s): E11.9 - Type 2 diabetes mellitus without complications; Z79.4 - terminal supervisor (current) use of insulin (2) Pneumonia Status: Acute Qualifiers: Pneumonia type: due to unspecified organism Laterality: bilateral Lung location: lower lobe of lung Qualified Code(s): J18.9 - Pneumonia, unspecified organism Category: Medical Code(s): J18.9 - Pneumonia, unspecified organism (3) Sepsis Status: Acute Qualifiers: Sepsis type: sepsis due to unspecified organism Sepsis acute organ dysfunction status: with acute organ dysfunction Severe sepsis acute organ dysfunction type: acute respiratory failure Acute respiratory failure type: with hypoxia Severe sepsis shock status: without septic shock Qualified Code(s): A41.9 - Sepsis, unspecified organism; R65.20 - Severe sepsis without septic shock; J96.01 - Acute respiratory failure with hypoxia Category: Medical Code(s): A41.9 - Sepsis, unspecified organism (4) Acute kidney injury Status: Acute Category: Medical Code(s): N17.9 - Acute kidney failure, unspecified (5) Acute respiratory failure with hypercapnia S
[2021-08-20 08:51] LABS: Basophils # 0.1 K/mm3 (0-0.2); Basophils % 0.4 % (0.1-2.0); Eosinophils # 0.1 K/mm3 (0.0-0.4); Eosinophils % 0.6 % (0.1-12.0); Hematocrit 30.4 % (37.0-47.0); Hemoglobin 9.8 g/dL (12.2-16.2); Lymphocytes # 1.2 K/mm3 (0.7-4.5); Mean Corpuscular HGB Conc 32.2 g/dL (31.8-35.4); Mean Corpuscular Hemoglobin 30.8 pg (27.0-31.2); Mean Corpuscular Volume 95.6 fl (81-99); Monocytes # 0.5 K/mm3 (0.1-1.0); Neutrophils % 84.9 % (37.0-80.0); Platelet Count 154 K/mm3 (142-424); Red Blood Count 3.18 M/mm3 (4.20-5.40); Red Cell Distribution Width 16.9 % (11.5-17.5); White Blood Count 11.8 K/mm3 (4.8-10.8)
--- NOTE | 2021-08-20 08:55 | HMH.PHACONS ---
- Pharmacy Consult Date: 08/20/21 Time: 08:55 Referring provider: DR. LOAIZA Reason for Consult:: VANCOMYCIN DOSE CHANGE Allergies and ADEs:: Allergies Allergy/AdvReac Type Severity Reaction Status Date / Time Sulfa (Sulfonamide Allergy Unknown I-RASH Verified 12/19/20 16:40 Antibiotics) [SULFA (SULFONAMIDE ANTIBIOTICS)] Home Medications:: Home Medications Medication Instructions Recorded Confirmed Type Amlodipine Besylate [Amlodipine 10 mg PO DAILY 06/01/17 08/18/21 History 10mg Tab] Multivitamin with Minerals 1 each PO DAILY 06/01/17 08/18/21 History [Multivitamins with Minerals] diazePAM [Diazepam 2mg tablets] 2 mg PO HS 06/01/17 08/18/21 History Insulin Glargine,Hum.rec.anlog 90 unit SQ HS 07/21/18 08/18/21 History [Lantus Insulin 100units/mL 10mL vial] Linagliptin [Tradjenta 5mg tablet] 5 mg PO DAILY 07/21/18 08/18/21 History Omeprazole [Omeprazole 40mg 20 mg PO HS 07/22/18 08/18/21 History Capsule] Furosemide [Furosemide 40MG tAB*] 40 mg PO BID 11/15/18 08/18/21 History Acetaminophen 500 mg PO Q6HP PRN 08/18/21 08/18/21 History Aspirin [Aspirin 81mg EC Tab] 81 mg PO DAILY 08/18/21 08/18/21 History Carboxymethylcellulose Sodium 1 each OP QID 08/18/21 08/18/21 History [Lubricating Plus] Cyanocobalamin (Vitamin B-12) 1,000 mcg IM MONTHLY 08/18/21 08/18/21 History [Cyanocobalamin 1,000mcg/mL Vial] Escitalopram Oxalate [Lexapro] 5 mg PO DAILY 08/18/21 08/18/21 History Ferrous Sulfate [Ferrous Sulfate 325 mg pe PO BID MDD chf 08/18/21 08/18/21 History 325mg Tablet] Fluticasone Propionate [24 Hour 1 spray NS DAILY 08/18/21 08/18/21 History Allergy] Guaifenesin/Dextromethorphan 10 ml PO Q4HP PRN 08/18/21 08/18/21 History [Robafen-Dm Syrup] Insulin Lispro [HumaLOG 100 48 unit SQ 0800 08/18/21 08/18/21 History units/mL 3mL vial (SSI)] Insulin Lispro [HumaLOG 100 54 unit SQ 1600 08/18/21 08/18/21 History units/mL 3mL vial (SSI)] Insulin Lispro [HumaLOG 100 59 unit SQ 1200 08/18/21 08/18/21 History units/mL 3mL vial (SSI)] Lactulose [Enulose] 20 gm PO DAILYP PRN 08/18/21 08/18/21 History Loratadine 10 mg PO DAILY 08/18/21 08/18/21 History Melatonin 10 mg PO HS 08/18/21 08/18/21 History Metoprolol Tartrate 50 mg PO BID 08/18/21 08/18/21 History Psyllium Husk (with Sugar) 1 packet PO DAILY 08/18/21 08/18/21 History [Metamucil Packet] Tramadol HCl [Tramadol 50mg 50 mg PO Q6HP PRN 08/18/21 08/18/21 History Tab] ondansetron HCL [Ondansetron 4mg 4 mg PO Q6HP PRN 08/18/21 08/18/21 History tab*] polyethylene glycoL 3350 [Miralax 17 gm PO DAILY 08/18/21 08/18/21 History 17gm Packet] levoFLOXacin [Levaquin 500mg 500 mg PO DAILY #7 tab 08/21/21 Rx tab] Height: 1.55 m Weight: 87.362 kg Laboratory Results:: Laboratory Results - last 24 hr 08/19/21 11:25: POC Glucose 312 H* 08/19/21 15:55: POC Glucose 341 H* 08/19/21 21:46: POC Glucose 271 H 08/20/21 05:06: POC Glucose 124 H 08/20/21 06:23: Sodium 139, Potassium 4.5, Chloride 101, Carbon Dioxide 34 H, Anion Gap 8.5, BUN 36 H, Creatinine 0.90 D, Estimated Creat Clear 59, Estimated GFR 60, Est GFR ( Amer) 72 D, Glucose 112 H D, Calcium 8.4, Magnesium 2.1 D, Total Bilirubin 0.2, AST 22, ALT 23, Alkaline Phosphatase 94, Total Protein 5.8 L, Albumin 3.1 L, Globulin 2.7, Albumin/Globulin Ratio 1.1 08/20/21 07:07: WBC 11.8 H, RBC 3.18 L, Hgb 9.8 L, Hct 30.4 L, MCV 95.6, MCH 30.8, MCHC 32.2, RDW 16.9, Plt Count 154, MPV 11.0 H, Neut % (Auto) 84.9 H, Lymph % (Auto) 10.0, [place] % (Auto) 4.0, Eos % (Auto) 0.6, Baso % (Auto) 0.4, Neut # (Auto) 10.0 H, Lymph # (Auto) 1.2, [place] # (Auto) 0.5, Eos # (Auto) 0.1, Baso # (Auto) 0.1 Medical History: Reports:: Anxiety, Asthma, Atherosclerotic Heart Disease, Atrial Fibrillation, Congestive Heart Failure, Coronary Artery Disease, Depression, Diabetes Mellitus Type 2, Gastroesophageal Reflux Disease(GERD), Hyperlipidemia, Hypertension
[2021-08-20 09:48] LABS: Hemoglobin A1C 7.5 % (4.0-6.0)
--- NOTE | 2021-08-20 12:13 | DIET.NUTRFU ---
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 Yesterday intake was good consuming 50% or better. Patient denied BM since admit and appeared in pain when provider feeling around stomach area. Enema was ordered for today. Patient also indicated she needs help with tray setup for meals. Provider also encouraged to situp for meals. Will continue to follow meal intake, updated ticket
[2021-08-20 12:16] LABS: POC Glucose,Bedside 123 (70-110)
[2021-08-20 15:26] LABS: Vancomycin,Trough 10.9 ug/mL (5.0-10.0)
--- NOTE | 2021-08-20 17:31 | PC.NURSE ---
Pt is alert and oriented x4. Crackles noted to lungs and diminished. She remains on 4L NC w/O2 sats measuring > 93%. Will attempt to wean as tolerated. She did have a large BM after administration of enema this morning. She reports feeling better. Glucose was 123 and 98 at checks, no insulin cover required per SS. afib/nsr on telemetry. Bed is locked and in the lowest position, call light within reach.
[2021-08-20 20:43] LABS: POC Glucose,Bedside 98 (70-110)
[2021-08-21] VITALS: BP 155/72; PULSE 70; PULSE 75; RESP 20; TEMP 36.5; O2SAT 93
[2021-08-21 04:00] VITALS: BP 148/73; PULSE 80; RESP 16; TEMP 36.7; O2SAT 99
[2021-08-21 04:03] LABS: POC Glucose,Bedside 86 (70-110)
[2021-08-21 06:22] LABS: POC Glucose,Bedside 110 (70-110)
[2021-08-21 06:47] LABS: Alanine Aminotransferase 19 U/L (12-78); Albumin Level 3.1 g/dl (3.5-5.0); Alkaline Phosphatase 93 U/L (38-126); Anion Gap 7.4 mEq/L (5-15); Aspartate Amino Transferase 20 U/L (14-36); Bilirubin,Total 0.4 mg/dl (0.2-1.3); Blood Urea Nitrogen 21 mg/dl (7-17); Calcium 8.5 mg/dl (8.4-10.2); Carbon Dioxide 36 mmol/L (22.0-30.0); Chloride 102 mmol/L (98-107); Creatinine Clearance Estimated 59 mL/min (50-200); Estimated Glomerular Filt Rate 80 ml/min (>60); GFR (African American) 97 ML/MIN (>60); Globulin 3.1 g/dL (1.3-3.2); Glucose 122 mg/dl (74-100); Potassium 4.4 mmoL/L (3.5-5.1); Sodium 141 mmol/L (136-145); Total Protein,Serum 6.2 g/dl (6.3-8.2)
[2021-08-21 06:50] LABS: Basophils # 0.1 K/mm3 (0-0.2); Basophils % 0.6 % (0.1-2.0); Eosinophils # 0.1 K/mm3 (0.0-0.4); Eosinophils % 0.7 % (0.1-12.0); Hematocrit 32.9 % (37.0-47.0); Hemoglobin 10.4 g/dL (12.2-16.2); Lymphocytes % 10.4 % (10-50); Mean Corpuscular HGB Conc 31.5 g/dL (31.8-35.4); Mean Corpuscular Hemoglobin 30.5 pg (27.0-31.2); Mean Corpuscular Volume 96.9 fl (81-99); Mean Platelet Volume 10.1 fl (7.4-10.4); Monocytes # 0.6 K/mm3 (0.1-1.0); Monocytes % 6.3 % (1.7-9.3); Neutrophils # 7.5 K/mm3 (1.8-7.8); Neutrophils % 81.9 % (37.0-80.0); Platelet Count 151 K/mm3 (142-424); Red Cell Distribution Width 17.1 % (11.5-17.5); White Blood Count 9.2 K/mm3 (4.8-10.8)
--- NOTE | 2021-08-21 07:19 | PC.NURSE ---
PT very drowsy last night. Pt slept all night. Was ablt ot be aroused with loudly calling her name. Would wake up and talk then go right back to sleep. Pt sugar was below 100 lst night so inulin held. s/s given this am. PT stated that she was ready to return to the assisted.
[2021-08-21 07:45] VITALS: BP 171/74; PULSE 83; RESP 18; TEMP 36.8; O2SAT 96
[2021-08-21 08:00] VITALS: PULSE 80
--- NOTE | 2021-08-21 08:25 | HMH.DCSUM ---
General - General Admission date:: 08/18/21 Discharge date: 08/21/21 HPI HPI: Patient is an 81-year-old female with a history of COPD presenting for worsening rales and shortness of breath with associated hypoxia. Differential diagnosis includes, but is not limited to, COPD exacerbation, pneumonia, ACS, CHF exacerbation, volume overload, other underlying infection, electrolyte abnormality. On initial exam, patient is alert, oriented and normotensive. She does have an increased oxygen requirement of 4.5 L on nasal cannula. ABG shows PaO2 of 45. Glucose is also elevated but no acidemia present. Patient was evaluate CBC, CMP, lactic acid, CRP, magnesium, troponin, BMP, UA, urine culture, blood culture, chest x-ray, EKG, COVID-19 screen/flu swab. Patient states she is supposed to wear BiPAP at night but does not. She denies wearing it today. Trialed on BiPAP. Lab work is significant for elevated CRP of approximately 120, leukocytosis. Additionally, patient has an elevated lactic acid of 2.5. Due to concern for volume overload, she was not given fluids included in the sepsis bundle but was given 500 cc of IV fluids. Normotensive very mildly tachycardic, temperature 100.2, I do not believe aggressive fluid resuscitation is necessary at this time and may be harmful. X-ray shows bilateral patchy opacities and consolidation in the right lower lobe. Started on ceftriaxone. Vancomycin was added due the fact that most recent urine cultures grew out a methicillin resistant Staphylococcus. Admitted for further work-up and care. Above note per ER. [facility] a [facility] local [facility]. Has felt poorly for about 12 hours. Appropriately sent to ER where she was found to be criteria for sepsis. Admitted, appropriate antibiotics started. Patient already feels better and lactate levels have already started to decline. Glucose levels been high through the day on the hospital floor. Hospital Course Hospital Course: Patient was admitted, met sepsis criteria, started on broad-spectrum IV antibiotics. Improved. Blood cultures were negative. Urine culture showed Klebsiella and E. coli, both sensitive to used antibiotics and also to Levaquin therapy. She improved in a stepwise fashion. Continues to be very weak but really at her baseline. This morning continues to be very weak but really at her baseline. This morning she is eating and drinking fairly well. Is very fatigued but has no worsening oxygen requirement. Fevers are not noted and her vital signs are unremarkable. Blood counts have improved. Plan will be to discharge back to [facility] today with Levaquin 500 mg daily for the next week. Other medications will remain as noted. She will need aggressive p.o. fluid intake. I would like her to have a CBC and a BMP in 1 week. There is no need for repeat urine culture. We will follow her on her [facility] rounds. Objective Vital signs: Temp Pulse Resp BP Pulse Ox 98.2 F 83 18 171/74 H 96 08/21/21 07:45 08/21/21 07:45 08/21/21 07:45 08/21/21 07:45 08/21/21 07:45 no acute distress, obese, chronically ill appearing - *Routine HEENT Exam Head: Present: normocephalic Eye: Present: EOMI, PERRL ENT: Present: mucous membranes moist - *Routine Neck Exam Present: supple - *Routine Respiratory Exam Present: CTA bilaterally - *Routine Cardiovascular Exam Present: RRR - *Routine Abdominal Exam Present: soft, normoactive bowel sounds. Absent: tenderness - *Routine Extremities Exam Absent: cyanosis, clubbing, edema - *Routine Skin Exam Present: warm. Absent: rash - *Routine Neurological Exam Present: alert Oriented x2, little fuzzy about the date which is her baseline. Globally weak. - Detailed Eye Exam Eyelids: Bilateral normal inspection Results Labs on day of discharge: Labs from last 24 hours 08/21/21 08/21/21 08/21/21 06:20 06:20 05:57
--- NOTE | 2021-08-21 09:23 | SW/DCPLANNER ---
Addendum entered by Marcia Ireland 08/21/21 09:24: Patient will return SNF level of care. Original Note: This patient currently resides at [facility] level of care. I spoke with Gloria at [facility] and she has requested an additional COVID swab prior to returning. Patient will discharge today.
[2021-08-21 09:43] LABS: Coronavirus 19, PCR Not Detected (NotDetected); Influenza A, PCR Not Detected (NotDetected); Influenza B, PCR Not Detected (NotDetected)
--- NOTE | 2021-08-21 11:07 | PC.NURSE ---
0925- Julian notified at 0925 for patient transfer and pending covid swab. 1031- Julian notified of covid results and stated that they would transfer patient when an ambulance got back from [place].
[2021-08-21 11:10] VITALS: BP 149/73; PULSE 71; RESP 18; TEMP 36.5; O2SAT 93
[2021-08-21 11:37] LABS: POC Glucose,Bedside 161 (70-110)
[2021-08-21 12:00] VITALS: PULSE 80
--- NOTE | 2021-08-22 13:50 | CARE MANAGER ---
Gloria from [facility] states patient is doing well. They deny questions or concerns at this time.
== END 2021-08-21 13:43 | DRG 871 ==
LOC: ER 06:09 → 2ND 06:58
PROVIDERS: Internal Medicine Adolescent Medicine; Admitting Provider Family Medicine; Emergency Provider Emergency Medicine; PCP Internal Medicine Adolescent Medicine; Visit Provider Internal Medicine Adolescent Medicine
DX: A41.9 Sepsis, unspecified organism (principal); J96.02 Acute respiratory failure with hypercapnia; J18.9 Pneumonia, unspecified organism; N39.0 Urinary tract infection, site not specified; N17.9 Acute kidney failure, unspecified; R65.20 Severe sepsis without septic shock; Z99.81 Dependence on supplemental oxygen; E11.65 Type 2 diabetes mellitus with hyperglycemia; Z79.4 Long term (current) use of insulin; Z87.891 Personal history of nicotine dependence; M19.90 Unspecified osteoarthritis, unspecified site; I25.10 Atherosclerotic heart disease of native coronary artery without angina pectoris; I48.91 Unspecified atrial fibrillation; Z20.822 Contact with and (suspected) exposure to COVID-19; F32.A Depression, unspecified; F41.9 Anxiety disorder, unspecified; E66.9 Obesity, unspecified; Z68.36 Body mass index [BMI] 36.0-36.9, adult; K59.00 Constipation, unspecified; I11.0 Hypertensive heart disease with heart failure; I50.9 Heart failure, unspecified; B96.1 Klebsiella pneumoniae [K. pneumoniae] as the cause of diseases classified elsewhere; K21.00 Gastro-esophageal reflux disease with esophagitis, without bleeding
CPT/HCPCS: 36415; 71045; 80053; 80202; 81001; 82009; 82803; 82947; 82962; 83036; 83605; 83735; 83880; 84484; 85007; 85025; 86140; 87040; 87070; 87077; 87086; 87088; 87186; 87205; 93005; 96375; 99285; C9803; J0696; J2405; U0003; U0005

== ENCOUNTER 2022-04-21 18:35 | Inpatient (IN) | payer MEDICARE, MEDICAID, SELFPAY ==
[2022-04-21] VITALS (9 sets, daily range): BP systolic 114–134; BP diastolic 52–59; PULSE 70–79; RESP 16–22; TEMP 36.9–37.8; O2SAT 74–100; BMI 31.8; BMI 29.0
--- NOTE | 2022-04-21 18:35 | ECG_ITS ---
APPROVED REPORT Exam: Resting ECG HR:73 bpm ECG Measurements Heart Rate [address] 181 P 59 QRSd 94 QRS -8 QT 364 T 38 QTc 391 Conclusion SINUS RHYTHM Normal ecg UNCONFIRMED REPORT Electronically signed by : Saulo Farrell MD 04/22/2022 13:33:56
--- NOTE | 2022-04-21 18:42 | XR_ITS ---
PROCEDURE INFORMATION: Exam: XR Chest Exam date and time: 04/21/2022 7:05 PM Age: 81 years old Clinical indication: Shortness of breath; Additional info: SOA TECHNIQUE: Imaging protocol: Radiologic exam of the chest. Views: 1 view. COMPARISON: CR XR CHEST PORTABLE 08/18/2021 5:53 AM FINDINGS: Lungs: Low lung volumes. Pulmonary vasculature grossly normal. Mild bilateral interstitial prominence. Patchy alveolar opacities in the lung bases, left greater than right, atelectasis versus pneumonia or edema. Pleural spaces: No pleural effusion. No pneumothorax. Heart/Mediastinum: Heart size normal. Bones/joints: No acute osseous abnormalities are identified. Osteopenia. Chronic left proximal humeral fracture and left humeral hardware unchanged. Chronic compression fractures in the mid and lower thoracic spine marginally visualized radiographically but grossly similar to CT 11/15/2018. IMPRESSION: 1. Low lung volumes. 2. Mild interstitial prominence and patchy basilar alveolar opacities in the lung bases could represent atelectasis from low lung volumes, versus patchy basilar pneumonia or edema.
[2022-04-21 18:57] LABS: Microscopic, Urine URINE MICROSCOPIC (MICROSCOPIC)
[2022-04-21 18:59] LABS: Influenza A, PCR Not Detected (NotDetected); Influenza B, PCR Not Detected (NotDetected)
[2022-04-21 18:59] LABS: VBG Base Excess 9.7 mmol/L (-2.4-2.3); VBG Oxygen Saturation 70.2 % (50-70); VBG PH 7.31 mmol/L (7.31-7.41); VBG PO2 38.4 mmol/L (28-40); VBG Total CO2 38.3 mmol/L (23-27)
--- NOTE | 2022-04-21 19:01 | HMH.EDGENADL ---
Discharge Plan Disposition Patient Disposition: Admitted As Inpatient Condition: Good Clinical Impressions Clinical Impression: Acute on chronic respiratory failure with hypoxia and hypercapnia, ROSALIA (acute kidney injury), Acute exacerbation of CHF (congestive heart failure), Acute exacerbation of chronic obstructive pulmonary disease, COVID-19, Acute UTI Pneumonia Qualifiers: Pneumonia type: due to unspecified organism Laterality: bilateral Lung location: unspecified part of lung Qualified Code(s): J18.9 - Pneumonia, unspecified organism Discharge ED Provider: Gloria Gooden General Adult HPI General Chief complaint: Shortness of Breath/Dyspnea Stated complaint: AMS Time Seen by Provider: 04/21/22 18:39 Mode of Arrival: EMS Source of Information: Patient and EMS History of Present Illness HPI narrative: This patient is an 81-year-old female with a history of COPD on 2 L nasal cannula, CHF, type 2 diabetes, and chronic anemia presented to the emergency department for evaluation with concern for altered mental status. According to EMS, the patient was found in her room unresponsive. She was initially hypoxic with an oxygen saturation of the 60s, so they increased her oxygen. She was also given a DuoNeb. After this, she became much more responsive. Vitals remained stable in route on nasal cannula. Patient is currently alert and denies any complaints. Patient has known DNR/DNI. Related Data Home Medications Medication Instructions Recorded Confirmed amlodipine 10 mg tablet 10 mg PO DAILY Hypertension 06/01/17 08/18/21 diazepam 2 mg tablet 2 mg PO HS Anxiety 06/01/17 08/18/21 multivitamin with minerals 1 each PO DAILY Supplement 06/01/17 08/18/21 insulin glargine 100 unit/mL 90 unit SQ HS Diabetes 07/21/18 08/18/21 subcutaneous solution linagliptin 5 mg tablet 5 mg PO DAILY Diabetes 07/21/18 08/18/21 omeprazole 40 mg capsule,delayed 20 mg PO HS GERD 07/22/18 08/18/21 release furosemide 40 mg tablet 40 mg PO BID Edema 11/15/18 08/18/21 acetaminophen 500 mg tablet 500 mg PO Q6HP PRN PAIN/FEVER 08/18/21 08/18/21 aspirin 81 mg tablet,delayed 81 mg PO DAILY CIRCULATION 08/18/21 08/18/21 release carboxymethylcellulose sodium 0.5 1 each ophthalmic (eye) QID dry 08/18/21 08/18/21 % eye drops in a dropperette eyes cyanocobalamin (vitamin B-12) 1,000 mcg IM MONTHLY SUPPLEMENT ON 08/18/21 08/18/21 1,000 mcg/mL injection solution THE 15 dextromethorphan-guaifenesin 10 10 ml PO Q4HP PRN Cough 08/18/21 08/18/21 mg-100 mg/5 mL oral syrup escitalopram oxalate 5 mg tablet 5 mg PO DAILY Depression 08/18/21 08/18/21 ferrous sulfate 325 mg (65 mg 325 mg pe PO BID Heart rhythm 08/18/21 08/18/21 iron) tablet fluticasone propionate 50 1 spray intranasal DAILY ALLERGIES 08/18/21 08/18/21 mcg/actuation nasal spray,suspension insulin lispro 100 unit/mL 48 unit SQ 0800 Diabetes 08/18/21 08/18/21 subcutaneous solution insulin lispro 100 unit/mL 54 unit SQ 1600 Diabetes 08/18/21 08/18/21 subcutaneous solution insulin lispro 100 unit/mL 59 unit SQ 1200 Diabetes 08/18/21 08/18/21 subcutaneous solution lactulose 10 gram/15 mL oral 20 gm PO DAILYP PRN Constipation 08/18/21 08/18/21 solution loratadine 10 mg capsule 10 mg PO DAILY Allergy symptoms 08/18/21 08/18/21 melatonin 5 mg tablet 10 mg PO HS SLEEP 08/18/21 08/18/21 metoprolol tartrate 50 mg tablet 50 mg PO BID BLOOD PRESSURE 08/18/21 08/18/21 ondansetron HCl 4 mg tablet 4 mg PO Q6HP PRN Nausea And 08/18/21 08/18/21 Vomiting polyethylene glycol 3350 17 gram 17 gm PO DAILY constipation 08/18/21 08/18/21 oral powder packet psyllium husk (with sugar) 3.4 1 packet PO DAILY bowels 08/18/21 08/18/21 gram oral powder packet tramadol 50 mg tablet 50 mg PO Q6HP PRN Moderate Pain 08/18/21 08/18/21 Previous Rx's Medication Instructions Recorded levofloxacin 500 mg tablet 500 mg PO DAILY #7 tabs 08/21/21 Allergies Allergy/AdvReac Type Severity Reaction St
[2022-04-21 19:03] LABS: Alanine Aminotransferase 33 U/L (12-78); Albumin Level 3.9 g/dl (3.5-5.0); Albumin/Globulin Ratio 1.1 (1.1-1.8); Alkaline Phosphatase 103 U/L (38-126); Aspartate Amino Transferase 44 U/L (14-36); Bilirubin,Total 0.9 mg/dl (0.2-1.3); Blood Urea Nitrogen 31 mg/dl (7-17); Calcium 8.5 mg/dl (8.4-10.2); Chloride 92 mmol/L (98-107); Creatinine Clearance Estimated 26 mL/min (50-200); Estimated Glomerular Filt Rate 22 ml/min (>60); GFR (African American) 27 ML/MIN (>60); Globulin 3.7 g/dL (1.3-3.2); Glucose 85 mg/dl (74-100); Lipase 15 U/L (23-300); Potassium 4.9 mmoL/L (3.5-5.1); Sodium 137 mmol/L (136-145); Total Protein,Serum 7.6 g/dl (6.3-8.2)
[2022-04-21 19:04] LABS: Basophils # 0.1 K/mm3 (0-0.2); Basophils % 0.9 % (0.1-2.0); Eosinophils # 0.1 K/mm3 (0.0-0.4); Eosinophils % 0.6 % (0.1-12.0); Hematocrit 36.3 % (37.0-47.0); Hemoglobin 11.4 g/dL (12.2-16.2); Lymphocytes # 1.6 K/mm3 (0.7-4.5); Lymphocytes % 13.8 % (10-50); Mean Corpuscular HGB Conc 31.5 g/dL (31.8-35.4); Mean Corpuscular Hemoglobin 28.9 pg (27.0-31.2); Mean Corpuscular Volume 91.8 fl (81-99); Mean Platelet Volume 9.9 fl (7.4-10.4); Monocytes # 0.6 K/mm3 (0.1-1.0); Monocytes % 4.9 % (1.7-9.3); Neutrophils # 9.2 K/mm3 (1.8-7.8); Neutrophils % 79.8 % (37.0-80.0); Platelet Count 160 K/mm3 (142-424); Red Blood Count 3.95 M/mm3 (4.20-5.40); Red Cell Distribution Width 17.5 % (11.5-17.5); White Blood Count 11.5 K/mm3 (4.8-10.8)
--- NOTE | 2022-04-21 19:04 | PC.NURSE ---
RT CALLED WITH RESULTS FROM [facility]. PH 7.30, PCO2 74.0, PO 38.4, BICARB 36.0, SAT 70.2 ER AWARE.
[2022-04-21 19:05] LABS: Appearance,Urine CLOUDY (Clear); Bilirubin,Urine Negative (Negative); Blood, Urine Negative (Negative); Color,Urine YELLOW (Yellow); Glucose,Urine (UA) Negative (Negative); Ketones,Urine Negative (Negative); Leukocyte Esterase,Urine 2+ (Negative); Nitrate,Urine Negative (Negative); Protein,Urine Negative (Negative); Specific Gravity, Urine >= 1.030 (1.005-1.030); Urobilinogen,Urine 0.2 EU/dl (0.2)
[2022-04-21 19:09] LABS: C-Reactive Protein 226.7 mg/L (0-4)
[2022-04-21 19:10] LABS: Anion Gap 9.9 mEq/L (5-15); Carbon Dioxide 40 mmol/L (22.0-30.0)
[2022-04-21 19:18] LABS: Troponin I 0.03 ng/ml (0.00-0.034)
[2022-04-21 19:22] LABS: Procalcitonin 1.32 ng/mL (0.0-2.0)
[2022-04-21 19:24] LABS: Free T4 (Free Thyroxine) 1.18 ng/dl (0.78-2.19)
[2022-04-21 19:24] LABS: Bacteria,Urine 3+ /lpf; Squamous Epithelial Cell,Urine Occasional #/hpf (0-5); WBC,Urine 20-50 #/hpf (0-3)
[2022-04-21 19:32] LABS: NT Pro Brain Natriuretic Pep. 3370 pg/mL (0-450)
[2022-04-21 19:37] LABS: Thyroid Stimulating Hormone 2.65 uIU/mL (0.465-4.68)
[2022-04-21 19:44] LABS: Coronavirus 19, PCR Detected (NotDetected)
--- NOTE | 2022-04-21 19:44 | PC.NURSE ---
Dr. Gooden s/w Dr. Calvo (on-call for Dr. Farrell) for admission
--- NOTE | 2022-04-21 19:46 | PC.NURSE ---
timekeeping supervisor notified for bed assignment
[2022-04-21 21:28] LABS: POC Glucose,Bedside 93 (70-110)
[2022-04-21 22:56] LABS: Troponin I 0.03 ng/ml (0.00-0.034)
[2022-04-22] VITALS (18 sets, daily range): BP systolic 122–138; BP diastolic 47–67; PULSE 76–95; RESP 18–24; TEMP 36.4–37.1; O2SAT 94–100; BMI 29.2
[2022-04-22 01:21] LABS: Troponin I 0.02 ng/ml (0.00-0.034)
--- NOTE | 2022-04-22 01:57 | PC.NURSE ---
Pt is a 81 year old A/O x 4 white female admitted this shift from [facility]. Pt admitted with COPD exacerbation, Did test positive for Covid. Per correction staff patient tested Positive for Covid initially March 17 2022, continues to rest positive. Pt oxygen was in the 70's on arrival to hospital. Pt is currently on Bipap at 65%. Sat's is currently 100% Pt is a total care turning Q2 hours. Coccyx was red but no open areas. [facility] but chose to be a full code in the Hospital. Lungs has been diminished, resp even and non labored. No edema noted, abdomen is large, hernia noted. IV's are patent, pt has been educated on medications and Plan of care. Bed locked in low position, side rails up x 2, call light in reach.
--- NOTE | 2022-04-22 02:27 | PC.NURSE ---
Pt now on 35% on Bipap, 02 sats in the 's.
--- NOTE | 2022-04-22 02:56 | PC.NURSE ---
02 turned back up to 50% on Bipap, pt de sat to 85 %. Pt was alert to self only this round thought she was in a car.
[2022-04-22 03:26] LABS: POC Glucose,Bedside 308 (70-110)
--- NOTE | 2022-04-22 03:50 | PC.NURSE ---
0313 04-22-[address] Calvo of change in pt condition. Mental status change, 02 was dropping, pt anxious, lungs crackles in bases. See New order for 20mg Lasix IV x 1.
[2022-04-22 06:45] LABS: Basophils % 0.2 % (0.1-2.0); Hematocrit 35.4 % (37.0-47.0); Lymphocytes # 0.6 K/mm3 (0.7-4.5); Lymphocytes % 4.2 % (10-50); Mean Corpuscular Hemoglobin 29.6 pg (27.0-31.2); Mean Corpuscular Volume 95.5 fl (81-99); Mean Platelet Volume 9.7 fl (7.4-10.4); Monocytes # 0.3 K/mm3 (0.1-1.0); Neutrophils % 93.7 % (37.0-80.0); Platelet Count 165 K/mm3 (142-424); Red Cell Distribution Width 17.3 % (11.5-17.5)
[2022-04-22 06:53] LABS: Blood Urea Nitrogen 41 mg/dl (7-17); Calcium 8.1 mg/dl (8.4-10.2); Carbon Dioxide 33 mmol/L (22.0-30.0); Chloride 93 mmol/L (98-107); Creatinine Clearance Estimated 29 mL/min (50-200); Estimated Glomerular Filt Rate 25 ml/min (>60); GFR (African American) 31 ML/MIN (>60); Glucose 383 mg/dl (74-100); Sodium 136 mmol/L (136-145)
[2022-04-22 06:54] LABS: MANUAL DIFFERENTIAL MANUAL DIFFERENTIAL (MANUAL DIFF)
[2022-04-22 07:45] LABS: Lymphocytes % 7 % (10-50); Monocytes % 2 % (2-9); Neutrophils % 91 % (42-76); Platelet Estimate Normal; RBC Morphology Normal; Total Cells Counted 100
--- NOTE | 2022-04-22 07:48 | EXP.HP ---
History of Present Illness *Admission Date: 04/21/22 *Reason for visit:: Respiratory distress/mental status changes *History of present illness: Medical Decision Narrative: In summary, this patient is an 81-year-old female with history as above presenting to the emergency department for evaluation with concern for altered mental status and hypoxia.? Differential diagnoses include pneumonia, COPD exacerbation, CHF exacerbation, ACS.? The patient is chronically ill-appearing on physical exam.? She has bilateral rhonchi.? Will obtain CBC, CMP, troponin, TSH, T4, BNP, CRP, procalcitonin, blood cultures, chest x-ray, and EKG.? Will administer duo nebs as well as IV methylprednisolone.? Will administer 500 cc of IV fluids, and will defer any further administration of IV fluids given history of CHF and concern for possible exacerbation. On reassessment, patient desaturated when she went to sleep, and she did not recover well on nasal cannula or on Ventimask.? Given this, she was placed on BiPAP.? Labs demonstrated hypercapnia, but normal pH.? Patient also has an ROSALIA, elevated white count and inflammatory markers, and urinary tract infection.? Chest x-ray on my independent interpretation demonstrates bilateral infiltrates concerning for infection versus edema.? Patient was given 40 mg of IV Lasix as well as broad-spectrum antibiotics including vancomycin and cefepime.? Patient did test positive for COVID-19.? Given her respiratory failure, ROSALIA, and concerns for sepsis, hospital medicine was consulted for admission.? The patient was admitted in stable condition for further evaluation and management. Above 2 paragraphs per ER physician. Patient is a long-term resident of [facility]. Has a history of COVID-19 pneumonia in February, and has been doing well from a respiratory standpoint. She was found in her room with altered mental status and some confusion. Brought to the ER where work-up was noted as above. [facility] Disclaimer: The information contained in this section may have been updated after the patient was seen, as this information can be updated by other users. 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 current occupational exposures/hazards: No caffeine: Yes Meds Home Medications and Allergies Home Medications Medication Instructions Recorded Confirmed Type amlodipine 10 mg tablet 10 mg PO DAILY Hypertension 06/01/17 08/18/21 History diazepam 2 mg tablet 2 mg PO HS Anxiety 06/01/17 08/18/21 History multivitamin with minerals 1 each PO DAILY Supplement 06/01/17 08/18/21 History insulin glargine 100 unit/mL 90 unit SQ HS Diabetes 07/21/18 08/18/21 History subcutaneous solution linagliptin 5 mg tablet 5 mg PO DAILY Diabetes 07/21/18 08/18/21 History omeprazole 40 mg capsule,delayed 20 mg PO HS GERD 07/22/18 08/18/21 History release furosemide 40 mg tablet 40 mg PO BID Edema 11/15/18 08/18/21 History acetaminophen 500 mg tablet 500 mg PO Q6HP PRN PAIN/FEVER 08/18/21 08/18/21 History aspirin 81 mg tablet,delayed 81 mg PO DAILY CIRCULATION 08/18/21 08/18/21 History release carboxymethylcellulose sodium 0.5 1 each ophthalmic (eye) QID dry 08/18/21 08/18/21 History % eye drops in a dropperette eyes cyanocobalamin (vitamin B-12) 1,000 mcg IM MONTHLY SUPPLEMENT ON 08/18/21 08/18/21 History 1,000 mcg/mL injection solution THE 15TH dextromethorphan-guaifenesin 10 10 ml PO Q4HP PRN Cough 08/18/21 08/18/21 His
--- NOTE | 2022-04-22 08:06 | SW/DCPLANNER ---
Addendum entered by Marcia Ireland 04/23/22 09:33: This patient will return to [facility] level of care today. Original Note: This patient currently resides at [facility] level of care. I will continue to follow up with Gloria at [facility] and fax updated patient information. Discharge date is unknown at this time.
--- NOTE | 2022-04-22 08:10 | EXP.PHA.CONS ---
Pharmacy Consult Date: 04/22/22 Time: 08:10 Referring provider: DR LOAIZA Reason for Consult:: VANCOMYCIN DOSING CONSULT Allergies Allergy/AdvReac Type Severity Reaction Status Date / Time Sulfa (Sulfonamide Allergy Unknown I-RASH Verified 12/19/20 16:40 Antibiotics) [SULFA (SULFONAMIDE ANTIBIOTICS)] Home Medications Medication Instructions Recorded Confirmed Type amlodipine 10 mg tablet 10 mg PO DAILY Hypertension 06/01/17 04/22/22 History diazepam 2 mg tablet 2 mg PO HS Anxiety 06/01/17 04/22/22 History multivitamin with minerals 1 each PO DAILY Supplement 06/01/17 08/18/21 History insulin glargine 100 unit/mL 90 unit SQ HS Diabetes 07/21/18 08/18/21 History subcutaneous solution linagliptin 5 mg tablet 5 mg PO DAILY Diabetes 07/21/18 04/22/22 History furosemide 40 mg tablet 40 mg PO BID Edema 11/15/18 04/22/22 History acetaminophen 500 mg tablet 500 mg PO Q6HP PRN PAIN/FEVER 08/18/21 08/18/21 History aspirin 81 mg tablet,delayed 81 mg PO DAILY CIRCULATION 08/18/21 08/18/21 History release carboxymethylcellulose sodium 0.5 1 each ophthalmic (eye) QID dry 08/18/21 08/18/21 History % eye drops in a dropperette eyes cyanocobalamin (vitamin B-12) 1,000 mcg IM MONTHLY SUPPLEMENT ON 08/18/21 08/18/21 History 1,000 mcg/mL injection solution THE 15TH dextromethorphan-guaifenesin 10 10 ml PO Q4HP PRN Cough 08/18/21 08/18/21 History mg-100 mg/5 mL oral syrup escitalopram oxalate 5 mg tablet 5 mg PO DAILY Depression 08/18/21 04/22/22 History ferrous sulfate 325 mg (65 mg 325 mg pe PO BID Heart rhythm 08/18/21 08/18/21 History iron) tablet fluticasone propionate 50 1 spray intranasal DAILY ALLERGIES 08/18/21 08/18/21 History mcg/actuation nasal spray,suspension insulin lispro 100 unit/mL 48 unit SQ 0800 Diabetes 08/18/21 08/18/21 History subcutaneous solution insulin lispro 100 unit/mL 54 unit SQ 1600 Diabetes 08/18/21 08/18/21 History subcutaneous solution insulin lispro 100 unit/mL 59 unit SQ 1200 Diabetes 08/18/21 08/18/21 History subcutaneous solution lactulose 10 gram/15 mL oral 20 gm PO DAILYP PRN Constipation 08/18/21 08/18/21 History solution loratadine 10 mg capsule 10 mg PO DAILY Allergy symptoms 08/18/21 08/18/21 History melatonin 5 mg tablet 10 mg PO HS SLEEP 08/18/21 08/18/21 History metoprolol tartrate 50 mg tablet 50 mg PO BID Hypertension 08/18/21 04/22/22 History ondansetron HCl 4 mg tablet 4 mg PO Q6HP PRN Nausea And 08/18/21 08/18/21 History Vomiting polyethylene glycol 3350 17 gram 17 gm PO DAILY constipation 08/18/21 08/18/21 History oral powder packet psyllium husk (with sugar) 3.4 1 packet PO DAILY bowels 08/18/21 08/18/21 History gram oral powder packet tramadol 50 mg tablet 50 mg PO Q6HP PRN Moderate Pain 08/18/21 08/18/21 History omeprazole 20 mg capsule,delayed 20 mg PO DAILY GERD 04/22/22 04/22/22 History release New Prescriptions to Start Prescriptions: Height: 1.68 m Weight: 82.355 kg Laboratory Results:: Laboratory Results - last 24 hr 04/21/22 18:40: WBC 11.5 H, RBC 3.95 L, Hgb 11.4 L, Hct 36.3 L, MCV 91.8, MCH 28.9, MCHC 31.5 L, RDW 17.5, Plt Count 160, MPV 9.9, Neut % (Auto) 79.8, Lymph % (Auto) 13.8, [place] % (Auto) 4.9, Eos % (Auto) 0.6, Baso % (Auto) 0.9, Neut # (Auto) 9.2 H, Lymph # (Auto) 1.6, [place] # (Auto) 0.6, Eos # (Auto) 0.1, Baso # (Auto) 0.1 04/21/22 18:40: Sodium 137, Potassium 4.9, Chloride 92 L, Carbon Dioxide 40 H, Anion Gap 9.9, BUN 31 H, Creatinine 2.10 H, Estimated Creat Clear 26, Estimated GFR 22 L, Est GFR ( Amer) 27 L, Glucose 85, Calcium 8.5, Total Bilirubin 0.9, AST 44 H, ALT 33, Alkaline Phosphatase 103, Troponin I 0.03, C-Reactive Protein 226.7 H, Total Protein 7.6, Albumin 3.9, Globulin 3.7 H, Albumin/Globulin Ratio 1.1, Lipase 15 L, Procalcitonin 1.32, TSH 2.65 04/21/22 18:40: Lactate 1.0 04/21/22 18:40: Free T4 1.18 04/21/22 18:40: SARS-CoV-2 (PCR) Detected A, Influenza A Untype (PCR) Not detected,
[2022-04-22 09:18] LABS: POC Glucose,Bedside 457 (70-110)
--- NOTE | 2022-04-22 11:43 | HMH.PHAINT1 ---
Pharmacy Intervention Comments: MEDICATION RECONCILIATION COMPLETED ON PATIENT USING EXTERNAL FILL HISTORY FROM PHARMACY AND MAR FROM [facility]. -ANDREI JIMÉNEZD
[2022-04-22 15:28] LABS: POC Glucose,Bedside 456 (70-110)
[2022-04-22 15:28] LABS: Blood Urea Nitrogen 40 mg/dl (7-17); Calcium 8.4 mg/dl (8.4-10.2); Carbon Dioxide 30 mmol/L (22.0-30.0); Chloride 96 mmol/L (98-107); Creatinine Clearance Estimated 33 mL/min (50-200); Estimated Glomerular Filt Rate 29 ml/min (>60); GFR (African American) 35 ML/MIN (>60); Sodium 136 mmol/L (136-145)
[2022-04-22 15:33] LABS: Glucose 441 mg/dl (74-100)
--- NOTE | 2022-04-22 16:48 | PC.NURSE ---
Addendum entered by Anca Argueta RN 04/22/22 17:28: O2 SATURATION MAINTAINING 92-97% ON 3 L NC. Original Note: PT IS RESTING IN BED. ALERT AND ORIENTED X2. WILL ANSWER SIMPLE QUESTIONS AND FOLLOW COMMANDS. CATHETER WAS DC'D THIS AFTERNOON. PURWICK IN PLACE. LUNG SOUNDS HAVE SCATTERED RHONCHI WITH BILATERAL CRACKLES. ABDOMEN SOFT/NON TENDER WITH ACTIVE BOWEL SOUNDS. REDNESS/SCABS NOTED TO BUTTOCKS. TURNED AND REPOSITIONED IN BED. ORAL CARE PROVIDED. WILL CONTINUE TO MONITOR.
[2022-04-22 20:40] LABS: POC Glucose,Bedside 482 (70-110)
--- NOTE | 2022-04-22 20:42 | PC.NURSE ---
Notified Dr Calvo of blood glucose 482, order to give 15 units Lispro per SS
[2022-04-23] VITALS (8 sets, daily range): BP systolic 127–142; BP diastolic 77–80; PULSE 80–91; RESP 17–18; TEMP 36.7; O2SAT 97; BMI 29.2
[2022-04-23 02:01] LABS: POC Glucose,Bedside 348 (70-110)
--- NOTE | 2022-04-23 04:20 | PC.NURSE ---
Pt has not been able to rest much through the night. Dr Calvo ordered a one time dose of benadryl to help. Pt still unable to rest. Pt screams help every 15min for staff to come in the room and the patient will be in no distress. Per day shift nurse that is her baseline at ID. Pt has dry unproductive cough. Receiving IV fluids and abx. 2L NC. VSS. Will continue to monitor.
--- NOTE | 2022-04-23 08:22 | EXP.DC.SUM ---
General Admission date:: 04/21/22 Discharge date: 04/23/22 HPI HPI HPI: Medical Decision Narrative: In summary, this patient is an 81-year-old female with history as above presenting to the emergency department for evaluation with concern for altered mental status and hypoxia.? Differential diagnoses include pneumonia, COPD exacerbation, CHF exacerbation, ACS.? The patient is chronically ill-appearing on physical exam.? She has bilateral rhonchi.? Will obtain CBC, CMP, troponin, TSH, T4, BNP, CRP, procalcitonin, blood cultures, chest x-ray, and EKG.? Will administer duo nebs as well as IV methylprednisolone.? Will administer 500 cc of IV fluids, and will defer any further administration of IV fluids given history of CHF and concern for possible exacerbation. On reassessment, patient desaturated when she went to sleep, and she did not recover well on nasal cannula or on Ventimask.? Given this, she was placed on BiPAP.? Labs demonstrated hypercapnia, but normal pH.? Patient also has an ROSALIA, elevated white count and inflammatory markers, and urinary tract infection.? Chest x-ray on my independent interpretation demonstrates bilateral infiltrates concerning for infection versus edema.? Patient was given 40 mg of IV Lasix as well as broad-spectrum antibiotics including vancomycin and cefepime.? Patient did test positive for COVID-19.? Given her respiratory failure, ROSALIA, and concerns for sepsis, hospital medicine was consulted for admission.? The patient was admitted in stable condition for further evaluation and management. Above 2 paragraphs per ER physician. Patient is a long-term resident of [facility]. Has a history of COVID-19 pneumonia in February, and has been doing well from a respiratory standpoint. She was found in her room with altered mental status and some confusion. Brought to the ER where work-up was noted as above. Hospital Course Hospital Course Hospital Course: Patient was admitted, placed on cefepime and vancomycin given the high likelihood of healthcare acquired pneumonia. She improved dramatically over the next 2 to 3 hours on her BiPAP and was able to come off the BiPAP onto nasal cannula oxygen. She ate well, glucose was elevated but she is also been on steroids and her regular insulin has been held. She did well over the last 24 hours and this morning is back to her baseline at the long term, alert, requiring 3 L O2 and oriented. Plan to be to discharge back to long term today. I believe that the COVID-19 test is curious as she does not have an acute infection and this is a PCR holdover from her infection in February. As a result, I will not continue steroids or antivirals. We will do doxycycline 100 twice daily for the next week for possible community-acquired/healthcare acquired pneumonia. She will need a CBC and a BMP in 5 days. We will follow her up on a regular long term rounds. I will note that it is imperative for her to wear her BiPAP at night. She is not been wearing this at night and her son indicates that she is somewhat resistant to it. I would encourage the nursing staff at [facility] to make this a priority to get her to wear the BiPAP at night to prevent further ventilatory failure episodes from happening. Exam Data for Last 24 hours Vital signs and Labs for Last 24 Hours: Temp Pulse Resp BP Pulse Ox FiO2 98.0 F 91 H 17 142/77 H 97 32 04/23/22 07:18 04/23/22 07:18 04/23/22 07:18 04/23/22 07:18 04/23/22 07:18 04/22/22 18:44 Laboratory Results - last 24 hr 04/22/22 09:11: POC Glucose 457 H* 04/22/22 15:00: Sodium 136, Potassium 5.0, Chloride 96 L, Carbon Dioxide 30, Anion Gap 15.0, BUN 40 H, Creatinine 1.70 H, Estimated Creat Clear 33, Estimated GFR 29 L, Est GFR ( Amer) 35 L, Glucose 441 H*, Calcium 8.4 04/22/22 15:20: POC Glucose 456 H* 04/22/22 20:30: POC Glucose 482 H* 04/23/22 01:53: POC Glucose 348 H* I & O for Last 24 hours: Intake & Out
[2022-04-23 08:32] LABS: POC Glucose,Bedside 407 (70-110)
[2022-04-23 08:47] LABS: Alanine Aminotransferase 22 U/L (12-78); Albumin Level 3.3 g/dl (3.5-5.0); Albumin/Globulin Ratio 1.1 (1.1-1.8); Alkaline Phosphatase 93 U/L (38-126); Anion Gap 8.3 mEq/L (5-15); Aspartate Amino Transferase 25 U/L (14-36); Bilirubin,Total 0.6 mg/dl (0.2-1.3); Blood Urea Nitrogen 35 mg/dl (7-17); Calcium 8.4 mg/dl (8.4-10.2); Carbon Dioxide 33 mmol/L (22.0-30.0); Chloride 101 mmol/L (98-107); Creatinine Clearance Estimated 50 mL/min (50-200); Estimated Glomerular Filt Rate 47 ml/min (>60); GFR (African American) 57 ML/MIN (>60); Glucose 396 mg/dl (74-100); Potassium 4.3 mmoL/L (3.5-5.1); Sodium 138 mmol/L (136-145); Total Protein,Serum 6.3 g/dl (6.3-8.2)
[2022-04-23 08:50] LABS: Basophils % 0.2 % (0.1-2.0); Eosinophils % 0.2 % (0.1-12.0); Hematocrit 29.8 % (37.0-47.0); Hemoglobin 9.7 g/dL (12.2-16.2); Lymphocytes # 0.8 K/mm3 (0.7-4.5); Lymphocytes % 7.2 % (10-50); Mean Corpuscular HGB Conc 32.8 g/dL (31.8-35.4); Mean Corpuscular Hemoglobin 30.6 pg (27.0-31.2); Mean Corpuscular Volume 93.5 fl (81-99); Mean Platelet Volume 10.3 fl (7.4-10.4); Monocytes # 0.5 K/mm3 (0.1-1.0); Neutrophils # 10.3 K/mm3 (1.8-7.8); Neutrophils % 88.4 % (37.0-80.0); Platelet Count 151 K/mm3 (142-424); Red Blood Count 3.18 M/mm3 (4.20-5.40); Red Cell Distribution Width 17.4 % (11.5-17.5); White Blood Count 11.6 K/mm3 (4.8-10.8)
[2022-04-23 09:00] LABS: MANUAL DIFFERENTIAL MANUAL DIFFERENTIAL (MANUAL DIFF)
[2022-04-23 10:03] LABS: Lymphocytes % 8 % (10-50); Monocytes % 2 % (2-9); Neutrophils % 90 % (42-76); Platelet Estimate Normal; RBC Morphology Normal; Total Cells Counted 100
--- NOTE | 2022-04-24 11:14 | CARE MANAGER ---
Contacted Marcia at [facility]. She states patient is doing well and denies any questions or concerns. BENNETT Rincon
== END 2022-04-23 12:56 | DRG 189 ==
LOC: ER 19:47 → 2ND 19:55
PROVIDERS: Admitting Provider Family Medicine; Emergency Provider Emergency Medicine; PCP Internal Medicine Adolescent Medicine; Visit Provider Internal Medicine Adolescent Medicine
DX: J96.21 Acute and chronic respiratory failure with hypoxia (principal); U07.1 COVID-19; J44.1 Chronic obstructive pulmonary disease with (acute) exacerbation; N17.9 Acute kidney failure, unspecified; N39.0 Urinary tract infection, site not specified; J96.22 Acute and chronic respiratory failure with hypercapnia; Z99.81 Dependence on supplemental oxygen; D64.89 Other specified anemias; E11.9 Type 2 diabetes mellitus without complications; Z79.84 Long term (current) use of oral hypoglycemic drugs; K21.9 Gastro-esophageal reflux disease without esophagitis; E78.5 Hyperlipidemia, unspecified; I10 Essential (primary) hypertension; E87.5 Hyperkalemia
CPT/HCPCS: 36415; 71045; 80048; 80053; 81001; 82803; 82962; 83605; 83690; 83880; 84145; 84439; 84443; 84484; 85007; 85025; 86140; 87040; 87070; 87086; 87088; 87186; 87205; 93005; 94640; 94761; 99285; C9803; J0692; U0003; U0005

== ENCOUNTER 2022-05-04 03:04 | Inpatient (IN) | payer MEDICARE, MEDICAID, SELFPAY ==
[2022-05-04] VITALS (22 sets, daily range): BP systolic 82–141; BP diastolic 32–78; PULSE 51–98; RESP 20–48; TEMP 34.2–37.8; O2SAT 88–100; BMI 34.3; BMI 25.0
--- NOTE | 2022-05-04 03:05 | XR_ITS ---
PROCEDURE INFORMATION: Exam: XR Chest Exam date and time: 05/04/2022 3:26 AM Age: 81 years old Clinical indication: Shortness of breath; Additional info: SOA TECHNIQUE: Imaging protocol: Radiologic exam of the chest. Views: 1 view. COMPARISON: CR XR CHEST PORTABLE 04/21/2022 7:05 PM FINDINGS: Lungs: Hypoinflation. Bibasilar airspace disease not significantly changed from prior. Hyperlucent lungs. Pleural spaces: Unremarkable. No pleural effusion. No pneumothorax. Heart/Mediastinum: Unremarkable. No cardiomegaly. Bones/joints: Unremarkable. IMPRESSION: Stable patchy bibasilar airspace disease. Chronic interstitial changes with hypoinflation.
--- NOTE | 2022-05-04 03:05 | PC.NURSE ---
notified kay of critical CO2 74.2
[2022-05-04 03:07] LABS: ABG Base Excess 2.9 mmol/L (-2.4-2.3); ABG HCO3 30.4 mmhg (22.0-26.0); ABG Oxygen Saturation 94 % (90-100); ABG PH 7.23 mmol/L (7.35-7.45); ABG PO2 85.1 mmhg (80-100); ABG TCO2 32.7 mmhg (23-27)
--- NOTE | 2022-05-04 03:15 | ECG_ITS ---
APPROVED REPORT Exam: Resting ECG HR:57 bpm ECG Measurements Heart Rate 57 AXES QRSd 116 QRS 14 QT 486 T 116 QTc 479 Conclusion SUPRAVENTRICULAR BRADYCARDIA MODERATE INTRAVENTRICULAR CONDUCTION DELAY [110+ ms QRS DURATION] NONSPECIFIC ST & T-WAVE ABNORMALITY PROLONGED QT INTERVAL ABNORMAL ECG UNCONFIRMED REPORT Electronically signed by : Saulo Farrell MD 05/04/2022 15:07:00
[2022-05-04 03:21] LABS: Coronavirus 19, PCR Not Detected (NotDetected); Influenza A, PCR Not Detected (NotDetected); Influenza B, PCR Not Detected (NotDetected)
[2022-05-04 03:35] LABS: Allen's Test Y; Oxygen 100 %; Source Left Radial
[2022-05-04 03:36] LABS: ABG PCO2 74.2 mmhg (35.0-45.0)
[2022-05-04 03:44] LABS: Basophils # 0.1 K/mm3 (0-0.2); Basophils % 0.4 % (0.1-2.0); Eosinophils % 0.2 % (0.1-12.0); Hematocrit 38.9 % (37.0-47.0); Hemoglobin 12.8 g/dL (12.2-16.2); Lymphocytes # 1.4 K/mm3 (0.7-4.5); Lymphocytes % 7.5 % (10-50); Mean Corpuscular HGB Conc 32.9 g/dL (31.8-35.4); Mean Corpuscular Hemoglobin 30.2 pg (27.0-31.2); Mean Corpuscular Volume 91.9 fl (81-99); Mean Platelet Volume 9.7 fl (7.4-10.4); Monocytes % 5.1 % (1.7-9.3); Neutrophils # 16.3 K/mm3 (1.8-7.8); Neutrophils % 86.8 % (37.0-80.0); Platelet Count 221 K/mm3 (142-424); Red Blood Count 4.23 M/mm3 (4.20-5.40); Red Cell Distribution Width 17.3 % (11.5-17.5); White Blood Count 18.8 K/mm3 (4.8-10.8)
[2022-05-04 03:45] LABS: MANUAL DIFFERENTIAL MANUAL DIFFERENTIAL (MANUAL DIFF)
[2022-05-04 03:49] LABS: Alanine Aminotransferase 17 U/L (12-78); Albumin/Globulin Ratio 1.2 (1.1-1.8); Alkaline Phosphatase 78 U/L (38-126); Aspartate Amino Transferase 26 U/L (14-36); Bilirubin,Total 0.6 mg/dl (0.2-1.3); Blood Urea Nitrogen 33 mg/dl (7-17); Calcium 8.5 mg/dl (8.4-10.2); Carbon Dioxide 35 mmol/L (22.0-30.0); Chloride 94 mmol/L (98-107); Creatinine Clearance Estimated 55 mL/min (50-200); Estimated Glomerular Filt Rate 47 ml/min (>60); GFR (African American) 57 ML/MIN (>60); Globulin 3.4 g/dL (1.3-3.2); Glucose 200 mg/dl (74-100); Lactic Acid 1.2 mmol/L (0.7-2.1); Sodium 134 mmol/L (136-145); Total Protein,Serum 7.4 g/dl (6.3-8.2)
--- NOTE | 2022-05-04 03:57 | HMH.EDSOB ---
Discharge Plan Disposition Patient Disposition: Admitted As Inpatient Prescriptions Prescriptions: No Action diazepam 2 MG tablet 2 mg PO HS amlodipine 10 MG tablet 10 mg PO DAILY multivitamin with minerals 1 EACH tablet 1 each PO DAILY omeprazole 20 mg capsule,delayed release(DR/EC) 20 mg PO HS albuterol sulfate 0.63 mg/3 mL Solution For Nebulization 0.63 mg INHALATION Q6HP PRN (Reason: Shortness Of Breath) nystatin 100,000 unit/gram powder 1 applic TOPICAL TID insulin glargine 100 UNIT/ML solution 90 unit SQ HS linagliptin 5 MG tablet 5 mg PO DAILY furosemide 40 MG tablet 40 mg PO BID polyethylene glycol 3350 17 GM powder in packet 17 gm PO DAILY ferrous sulfate 325 MG tablet 325 mg PO BID loratadine 10 MG capsule 10 mg PO DAILY psyllium husk (with sugar) 3.4 GM powder in packet 1 packet PO DAILY acetaminophen 500 MG tablet 500 mg PO Q6HP PRN (Reason: PAIN/FEVER) ondansetron HCl 4 MG tablet 4 mg PO Q6HP PRN (Reason: Nausea And Vomiting) escitalopram oxalate 5 MG tablet 5 mg PO DAILY aspirin 81 MG tablet,delayed release (DR/EC) 81 mg PO DAILY fluticasone propionate 9.9 ML spray,suspension 1 spray NS DAILY metoprolol tartrate 50 MG tablet 50 mg PO BID melatonin 5 MG tablet 10 mg PO HS carboxymethylcellulose sodium 1 EACH dropperette 1 each OP QID tramadol 50 MG tablet 50 mg PO Q6HP PRN (Reason: Moderate Pain) insulin lispro 100 UNIT/ML solution 46 unit SQ 0800 insulin lispro 100 UNIT/ML solution 52 unit SQ 1600 insulin lispro 100 UNIT/ML solution 56 unit SQ 1200 lactulose 10 GM/15 ML solution 20 gm PO DAILYP PRN (Reason: Constipation) Referrals Follow up/Referrals: Saulo Farrell MD [Primary Care Provider] - See instructions Clinical Impressions Clinical Impression: Acute on chronic respiratory failure with hypoxia and hypercapnia, Severe sepsis with acute organ dysfunction, Septic shock Discharge ED Provider: Roxie (ED)Freddy Resp/SOB HPI General Chief Complaint: Shortness of Breath/Dyspnea Stated Complaint: SOB Time Seen by Provider: 05/04/22 03:05 Mode of Arrival: EMS Source of Information: EMS and Medical Record Limitations: Altered Mental Status Description of Symptoms (Recalled from ER Triage Doc. by RN): per custodial check FSBS was 44 given glucogen then pt became to desat in low 70s History of Present Illness pt sent from [facility] with dec glu and sob - pt unable to give hx MD Complaint: shortness of breath Onset (ago): hour(s) Context: recent illness Severity: severe Relieving factors: oxygen Known history of: COPD, congestive heart failure and diabetes Treatment prior to arrival: oxygen Related Data Home oxygen amount: 2 liters Home Medications Medication Instructions Recorded Confirmed amlodipine 10 mg tablet 10 mg PO DAILY Hypertension 06/01/17 05/04/22 diazepam 2 mg tablet 2 mg PO HS Anxiety 06/01/17 05/04/22 multivitamin with minerals 1 each PO DAILY Supplement 06/01/17 05/04/22 insulin glargine 100 unit/mL 90 unit SQ HS Diabetes 07/21/18 05/04/22 subcutaneous solution linagliptin 5 mg tablet 5 mg PO DAILY Diabetes 07/21/18 05/04/22 furosemide 40 mg tablet 40 mg PO BID Edema 11/15/18 05/04/22 acetaminophen 500 mg tablet 500 mg PO Q6HP PRN PAIN/FEVER 08/18/21 05/04/22 aspirin 81 mg tablet,delayed 81 mg PO DAILY HEART HEALTH 08/18/21 05/04/22 release carboxymethylcellulose sodium 0.5 1 each ophthalmic (eye) QID dry 08/18/21 05/04/22 % eye drops in a dropperette eyes escitalopram oxalate 5 mg tablet 5 mg PO DAILY Depression 08/18/21 05/04/22 ferrous sulfate 325 mg (65 mg 325 mg PO BID Supplement 08/18/21 05/04/22 iron) tablet fluticasone propionate 50 1 spray intranasal DAILY ALLERGIES 08/18/21 05/04/22 mcg/actuation nasal spray,suspension insulin lispro 100 unit/mL 46 unit SQ 0800 Diabete
[2022-05-04 03:59] LABS: Eosinophils % 1 % (0-3); Lymphocytes % 6 % (10-50); Monocytes % 1 % (2-9); Neutrophils % 92 % (42-76); Platelet Estimate Normal; RBC Morphology Normal; Total Cells Counted 100
[2022-05-04 04:03] LABS: NT Pro Brain Natriuretic Pep. 756 pg/mL (0-450); Troponin I 0.01 ng/ml (0.00-0.034)
[2022-05-04 04:08] LABS: Procalcitonin 0.328 ng/mL (0.0-2.0)
[2022-05-04 04:12] LABS: Erythrocyte Sedimentation Rate 42 mm/hr (0-30)
[2022-05-04 04:22] LABS: Acetone, Serum (Rapid) None Detected (None Detect)
--- NOTE | 2022-05-04 04:34 | PC.NURSE ---
Rechecked pt condition. No needs or complaints voiced at this time. Son remains at BS.
--- NOTE | 2022-05-04 04:59 | PC.NURSE ---
Rectal temp: 94.3
--- NOTE | 2022-05-04 05:01 | PC.NURSE ---
Pt placed on Bipap @0325 with settings- 12/6, 40% fio2, rate20 Pt now states she feels like she is smothering . RT notified. Settings now- 14/6, 50% , rate20. O2 sats >95%. Pt placed on hypothermic blanket upon arrival. Rectal temp now 94.3. Pt remains on hypothermic blanket. supervisor detasseling crew notified of admission. Sepsis bolus still infusing at this time.
[2022-05-04 05:03] LABS: POC Glucose,Bedside 367 (70-110)
[2022-05-04 05:09] LABS: Microscopic, Urine URINE MICROSCOPIC (MICROSCOPIC)
[2022-05-04 05:11] LABS: Appearance,Urine SL CLOUDY (Clear); Bilirubin,Urine Negative (Negative); Blood, Urine Negative (Negative); Color,Urine YELLOW (Yellow); Glucose,Urine (UA) Negative (Negative); Ketones,Urine Negative (Negative); Leukocyte Esterase,Urine TRACE (Negative); Nitrate,Urine POSITIVE (Negative); Protein,Urine Negative (Negative); Urobilinogen,Urine 0.2 EU/dl (0.2)
[2022-05-04 05:15] LABS: Bacteria,Urine 3+ /lpf; Squamous Epithelial Cell,Urine 20-50 #/hpf (0-5)
[2022-05-04 05:16] LABS: WBC,Urine 20-50 #/hpf (0-3)
--- NOTE | 2022-05-04 06:13 | PC.NURSE ---
Pt arrived to floor via stretcher @ [id number]
[2022-05-04 06:14] LABS: POC Glucose,Bedside 294 (70-110)
[2022-05-04 07:19] LABS: Basophils # 0.1 K/mm3 (0-0.2); Basophils % 0.3 % (0.1-2.0); Eosinophils % 0.2 % (0.1-12.0); Hematocrit 39.1 % (37.0-47.0); Hemoglobin 12.3 g/dL (12.2-16.2); Lymphocytes # 0.9 K/mm3 (0.7-4.5); Lymphocytes % 6.2 % (10-50); Mean Corpuscular HGB Conc 31.3 g/dL (31.8-35.4); Mean Corpuscular Hemoglobin 29.2 pg (27.0-31.2); Mean Corpuscular Volume 93.1 fl (81-99); Mean Platelet Volume 9.4 fl (7.4-10.4); Monocytes # 0.4 K/mm3 (0.1-1.0); Neutrophils # 12.7 K/mm3 (1.8-7.8); Neutrophils % 90.3 % (37.0-80.0); Platelet Count 212 K/mm3 (142-424); Red Cell Distribution Width 17.3 % (11.5-17.5); White Blood Count 14.1 K/mm3 (4.8-10.8)
[2022-05-04 07:20] LABS: Chloride 98 mmol/L (98-107); Potassium 4.4 mmoL/L (3.5-5.1); Sodium 134 mmol/L (136-145)
[2022-05-04 07:23] LABS: Anion Gap 13.4 mEq/L (5-15); Blood Urea Nitrogen 32 mg/dl (7-17); Calcium 7.7 mg/dl (8.4-10.2); Carbon Dioxide 27 mmol/L (22.0-30.0); Creatinine Clearance Estimated 45 mL/min (50-200); Estimated Glomerular Filt Rate 60 ml/min (>60); GFR (African American) 72 ML/MIN (>60); Glucose 297 mg/dl (74-100)
[2022-05-04 07:49] LABS: Troponin I < 0.01 ng/ml (0.00-0.034)
--- NOTE | 2022-05-04 08:31 | EXP.HP ---
History of Present Illness *Admission Date: 05/04/22 *Reason for visit:: Hypoglycemia *History of present illness: 81-year-old white female, long-term resident of the [facility] who struggles with chronic hypercapnia and is ordered BiPAP at night. However, because of some anxiety issues and noncompliance she has not been wearing this on a regular basis and has had a repetitive pattern of hypercapnia and respiratory failure. She was admitted to [facility] about 10 days ago for a similar situation, improved, and was discharged back to [facility]. I visited her there exactly 1 week ago for a post hospital visit and she was doing well with good oxygen levels and good activity levels, but I noted that she seemed to be a little bit more confused than her baseline, although she was able to remember me and remember my dog's name who was accompanied me on rounds. The nurses reported that she had some aberrant behaviors. Her son is here today and he notes that this is somewhat continued and she has been increasingly anxious and has refused to wear BiPAP. The nursing staff there has been unable to monitor her one-on-one as required and she essentially has not been wearing the BiPAP at all. They noted that she was confused this morning had low sugar and EMS brought her to the ER. In the ER she was found to have normal labs-for her-but was noted to be extremely hypercapnic and somnolent. X-ray showed infiltrate-essentially the same as previously, but given her high risk of aspiration and pneumonia she was placed on Levaquin and admitted to hospital for BiPAP therapy. [facility] Disclaimer: The information contained in this section may have been updated after the patient was seen, as this information can be updated by other users. Medical History (Updated 05/04/22 @ 08:35 by Saulo Farrell MD) Anxiety COPD (chronic obstructive pulmonary disease) Depression Diabetes mellitus, type 2 GERD (gastroesophageal reflux disease) History of gastroesophageal reflux (GERD) Hyperlipidemia Hypertension Social History (Updated 05/04/22 @ 06:52 by Virginia Guaman RN) Smoking Status: Former smoker pack-years: 32 second hand exposure: No alcohol intake: never substance use type: denies use current occupational status: retired Travel in the last 8 weeks: None household members: caregiver housing: alf current occupation: n[employer] home pt current occupational exposures/hazards: No caffeine: Yes Review of Systems Review of Systems Review of systems:: unable to obtain Meds Home Medications and Allergies Home Medications Medication Instructions Recorded Confirmed Type amlodipine 10 mg tablet 10 mg PO DAILY Hypertension 06/01/17 05/04/22 History diazepam 2 mg tablet 2 mg PO HS Anxiety 06/01/17 05/04/22 History multivitamin with minerals 1 each PO DAILY Supplement 06/01/17 05/04/22 History insulin glargine 100 unit/mL 90 unit SQ HS Diabetes 07/21/18 05/04/22 History subcutaneous solution linagliptin 5 mg tablet 5 mg PO DAILY Diabetes 07/21/18 05/04/22 History furosemide 40 mg tablet 40 mg PO BID Edema 11/15/18 05/04/22 History acetaminophen 500 mg tablet 500 mg PO Q6HP PRN PAIN/FEVER 08/18/21 05/04/22 History aspirin 81 mg tablet,delayed 81 mg PO DAILY HEART HEALTH 08/18/21 05/04/22 History release carboxymethylcellulose sodium 0.5 1 each ophthalmic (eye) QID dry 08/18/21 05/04/22 History % eye drops in a dropperette eyes escitalopram oxalate 5 mg tablet 5 mg PO DAILY Depression 08/18/21 05/04/22 History ferrous sulfate 325 mg (65 mg 325 mg PO BID Supplement 08/18/21 05/04/22 History iron) tablet fluticasone propionate 50 1 spray intranasal DAILY ALLERGIES 08/18/21 05/04/22 History mcg/actuation nasal spray,suspension insulin lispro 100 unit/mL 46 unit SQ 0800 Diabetes 08/18/21 05/04/22 History subcutaneous solution insulin lispro 100 unit/mL 52 unit SQ 1600 Diabetes 05
[2022-05-04 10:34] LABS: Troponin I < 0.01 ng/ml (0.00-0.034)
[2022-05-04 11:20] LABS: POC Glucose,Bedside 272 (70-110)
--- NOTE | 2022-05-04 11:30 | PC.NURSE ---
[address] Farrell that pt is restless and agitated and complaining of back pain at this time. pt is tachypneic in the 30's-40's. new order at this time morphine 2mg iv x 1 dose now.
--- NOTE | 2022-05-04 12:10 | P.CONPHA_ITS ---
Pharmacy Intervention Comments: MEDICATION RECONCILIATION COMPLETE USING MAR FROM [facility].
--- NOTE | 2022-05-04 12:10 | HMH.PHAINT1 ---
Pharmacy Intervention Comments: MEDICATION RECONCILIATION COMPLETE USING MAR FROM [facility].
[2022-05-04 12:22] LABS: ABG Base Excess 0.3 mmol/L (-2.4-2.3); ABG Oxygen Saturation 87 % (90-100); ABG PCO2 49.1 mmhg (35.0-45.0); ABG PH 7.34 mmol/L (7.35-7.45); ABG PO2 56.5 mmhg (80-100); ABG TCO2 27.5 mmhg (23-27)
[2022-05-04 12:24] LABS: Allen's Test Patient Unable; Source Right Radial; Vent Rate 20
--- NOTE | 2022-05-04 12:33 | PC.NURSE ---
Dr Farrell notified of pt abg results at this time. notified him that r/t results, fio2 increased to 100%. notified that morphine helped with pt agitation, restlessness and pain. new order received for morphine 2mg iv q4h prn pain.
--- NOTE | 2022-05-04 16:45 | PC.NURSE ---
pt was extremely restless at start of shift. pt at this time has received 2mg ativan and 4 mg morphine. pt is currently resting in bed, sleeping off and on. pt still tachypneic in the 30's. lungs contain rhonchi with scattered wheezes. bowel sounds active. no edema noted. mittens not in use at this time as pt is compliant with and tolerant of bipap. nad noted. pt son has been at bedside off and on this shift. at this time pt code status is full code. pt is alert to self.
[2022-05-04 17:06] LABS: POC Glucose,Bedside 316 (70-110)
[2022-05-04 20:18] LABS: POC Glucose,Bedside 224 (70-110)
[2022-05-05] VITALS (15 sets, daily range): BP systolic 112–141; BP diastolic 50–61; PULSE 90–110; RESP 20–30; TEMP 36.2–37.6; O2SAT 92–98; BMI 32.9; BMI 32.7; BMI 31.4
--- NOTE | 2022-05-05 05:55 | PC.NURSE ---
Pt has been less restless this shift. Has slept at intervals. Anxiety has decreased. Pt has tolerated Bipap t/o night with intervals for oral care. Current settings: FiO2 70%, 14/6, R 20. FSBS stable. 224, 247. Humalog 4 units administered each time. VSS. F/C draining to bedside. Safety measures in place.
[2022-05-05 06:34] LABS: POC Glucose,Bedside 247 (70-110)
[2022-05-05 06:40] LABS: ABG Base Excess 4.2 mmol/L (-2.4-2.3); ABG HCO3 29.8 mmhg (22.0-26.0); ABG Oxygen Saturation 94 % (90-100); ABG PH 7.35 mmol/L (7.35-7.45); ABG PO2 70.9 mmhg (80-100); ABG TCO2 31.5 mmhg (23-27)
[2022-05-05 06:42] LABS: Allen's Test Acceptable; Oxygen 70 %; Pressure Support 14/6; Source Left Radial; Vent Rate 20
[2022-05-05 06:44] LABS: ABG PCO2 55.4 mmhg (35.0-45.0)
--- NOTE | 2022-05-05 07:51 | DIET.NUTRFU ---
RD called [facility] to clarify oral diet, recently downgraded to pureed diet with nectar thick liquids on 05/01. In the past she has not worn teeth. No straws were also recommended. Weights are stable, fluctuating between 81-90kg with hx of CHF maybe d/t fluid balance. She is currently NPO. BS elevated with hx of DM, insulin in place. No recent A1c on file.
--- NOTE | 2022-05-05 08:43 | EXP.ACUTE.PN ---
Subjective *Date: 05/05/22 *Time: 08:43 Interval history: Patient did well overnight on her BiPAP, ABG this morning looked much better. Unfortunately, patient did not tolerate coming off the BiPAP and desaturated. She is back on BiPAP and complains of some widespread pain but is in no distress. Medical Exam Vital signs and Labs for Last 24 Hours: Vital Signs Temp Pulse Pulse Resp BP Pulse Ox FiO2 05/05/22 07:05 94 L 50 05/05/22 04:00 99.7 F H 97 H 28 H 136/54 L 96 05/05/22 04:00 110 H 05/05/22 01:00 95 H 26 H 132/61 97 05/05/22 00:00 90 05/05/22 00:00 97.1 F L 05/04/22 20:00 90 05/04/22 20:00 99.4 F 88 26 H 104/44 L 97 05/04/22 19:46 80 05/04/22 16:00 100.0 F H 86 32 H 104/44 L 96 05/04/22 16:00 87 05/04/22 14:56 100 05/04/22 12:00 70 05/04/22 11:44 99.7 F H 98 H 48 H 125/52 L 89 L 05/04/22 09:43 80 Intake and Output 05/04/22 05/05/22 05/05/22 19:59 03:59 11:59 Intake Total 1079 / 2329 1250 / 2329 Output Total 200 / 550 0 / 550 350 / 550 Balance 879 / 1779 0 / 1779 900 / 1779 Intake: Intake, Total IV Amount 1079 / 2329 1250 / 2329 0.9 % Sodium Chloride 1,000 ml 157 / 1257 1100 / 1257 @ 100 mls/hr IV .Q10H BELIA Rx#: [id number] Levofloxacin/D5w 750 mg/150 ml 922 / 1072 150 / 1072 750 mg In 150 ml @ 100 mls/hr IV Q24H BELIA Rx#:[id number] Output: Output, Urine Amount 200 / 550 0 / 550 350 / 550 Other: Number of Unmeasured Voids 0 0 0 Weight 191 lb 12.835 oz Patient Weight 05/05/22 11:59 Weight 191 lb 12.835 oz Laboratory Results - last 24 hr 05/04/22 03:14: Urine Color Yellow, Urine Appearance Sl cloudy, Urine pH 6.0, Ur Specific Cavalier 1.010, Urine Protein Negative, Urine Glucose (UA) Negative, Urine Ketones Negative, Urine Blood Negative, Urine Nitrate Positive, Urine Bilirubin Negative, Urine Urobilinogen 0.2, Ur Leukocyte Esterase Trace, Urine RBC None, Urine WBC 20-50, Ur Squamous Epith Cells 20-50, Urine Bacteria 3+ 05/04/22 07:00: Specimen Source Right radial, O2 % 80% bipap 14/6, ABG pH 7.34 L, ABG pCO2 49.1 H, ABG pO2 56.5 L, ABG HCO3 26.0, ABG Total CO2 27.5 H, ABG O2 Saturation 87 L*, ABG Base Excess 0.3, Alex Test Patient unable, Vent Rate 20 05/04/22 09:55: Troponin I < 0.01 05/04/22 11:11: POC Glucose 272 H 05/04/22 16:54: POC Glucose 316 H* 05/04/22 19:57: POC Glucose 224 H 05/05/22 05:53: POC Glucose 247 H 05/05/22 06:15: Specimen Source Left radial, O2 % 70, ABG pH 7.35, ABG pCO2 55.4 H, ABG pO2 70.9 L, ABG HCO3 29.8 H, ABG Total CO2 31.5 H, ABG O2 Saturation 94, ABG Base Excess 4.2 H, Alex Test Acceptable, Vent Rate 20 I & O for Labs for Last 24 Hours: Intake & Output 05/02/22 05/03/22 05/04/22 05/05/22 11:59 11:59 11:59 11:59 Intake Total 2329 / 2329 Output Total 0 / 0 550 / 550 Balance 0 / 0 1779 / 1779 Weight 146 lb 3 oz 191 lb 12.835 oz Microbiology Reports for the Last 24 Hours: Microbiology 05/04/22 06:25 Sputum - Expectorated Sputum Gram Stain - Final 05/04/22 06:25 Sputum - Expectorated Sputum Sputum Culture - Preliminary 05/04/22 03:14 Urine,Catheterized Urine Culture - Preliminary Gram Negative Rods Comment:: Sleeping on BiPAP, when awakened is alert. Asked what day it is. Lungs have poor air movement, rhonchorous air sounds bilaterally. Heart rate regular. Abdomen soft, extremities are warm and well-perfused. Lacey catheter draining clear yellow urine. Assessment and Plan *Assessment and plan (1) Acute on chronic respiratory failure with hypoxia and hypercapnia: Status: Acute Category: Medical Code(s): J96.21 - Acute and chronic respiratory failure with hypoxia; J96.22 - Acute and chronic respiratory failure with hypercapnia (2) Pneumonia: Status: Acute Qualifiers: Laterality: bilateral Lung loc
--- NOTE | 2022-05-05 09:38 | PC.NURSE ---
pt reweighed by Michel Allen and Dinah Gonzalez.
[2022-05-05 11:52] LABS: POC Glucose,Bedside 230 (70-110)
[2022-05-05 16:57] LABS: POC Glucose,Bedside 199 (70-110)
--- NOTE | 2022-05-05 19:31 | PC.NURSE ---
notified Dr Farrell face to face at 1850 that pt hr was slightly elevated and pt metoprolol has not been reordered yet. new orders, sips and chips (nectar thick) and reorder metoprolol home medication to start tonight.
[2022-05-05 20:45] LABS: POC Glucose,Bedside 209 (70-110)
[2022-05-06] VITALS (13 sets, daily range): BP systolic 94–153; BP diastolic 51–82; PULSE 70–101; RESP 20–27; TEMP 35.9–36.9; O2SAT 92–97; BMI 31.9
[2022-05-06 05:46] LABS: POC Glucose,Bedside 235 (70-110)
[2022-05-06 06:27] LABS: ABG Base Excess 2.4 mmol/L (-2.4-2.3); ABG HCO3 28.4 mmhg (22.0-26.0); ABG Oxygen Saturation 92 % (90-100); ABG PH 7.33 mmol/L (7.35-7.45); ABG TCO2 30.1 mmhg (23-27)
[2022-05-06 06:28] LABS: Allen's Test Acceptable; Oxygen 70% %; PEEP 14/6; Source Right Brachial
[2022-05-06 06:29] LABS: ABG PCO2 55.2 mmhg (35.0-45.0)
--- NOTE | 2022-05-06 06:34 | PC.NURSE ---
notified MD Sheila faria of pt's critical PO2 of 63 on ABG, no new orders at this time
[2022-05-06 06:35] LABS: Hemoglobin 8.7 g/dL (12.2-16.2); Lymphocytes # 0.6 K/mm3 (0.7-4.5); Lymphocytes % 7.5 % (10-50); Mean Corpuscular HGB Conc 31.2 g/dL (31.8-35.4); Mean Corpuscular Hemoglobin 29.3 pg (27.0-31.2); Mean Corpuscular Volume 93.9 fl (81-99); Mean Platelet Volume 10.1 fl (7.4-10.4); Monocytes # 0.3 K/mm3 (0.1-1.0); Monocytes % 3.3 % (1.7-9.3); Neutrophils # 6.9 K/mm3 (1.8-7.8); Neutrophils % 89.1 % (37.0-80.0); Platelet Count 113 K/mm3 (142-424); Red Blood Count 2.98 M/mm3 (4.20-5.40); Red Cell Distribution Width 17.4 % (11.5-17.5); White Blood Count 7.8 K/mm3 (4.8-10.8)
[2022-05-06 06:41] LABS: Chloride 108 mmol/L (98-107); Sodium 141 mmol/L (136-145)
[2022-05-06 06:42] LABS: Potassium 4.8 mmoL/L (3.5-5.1)
[2022-05-06 06:44] LABS: Alanine Aminotransferase 12 U/L (12-78); Albumin Level 2.6 g/dl (3.5-5.0); Alkaline Phosphatase 79 U/L (38-126); Anion Gap 6.8 mEq/L (5-15); Aspartate Amino Transferase 14 U/L (14-36); Bilirubin,Total 0.6 mg/dl (0.2-1.3); Blood Urea Nitrogen 26 mg/dl (7-17); Calcium 7.6 mg/dl (8.4-10.2); Carbon Dioxide 31 mmol/L (22.0-30.0); Creatinine Clearance Estimated 56 mL/min (50-200); Estimated Glomerular Filt Rate 53 ml/min (>60); GFR (African American) 64 ML/MIN (>60); Globulin 2.7 g/dL (1.3-3.2); Glucose 228 mg/dl (74-100); Total Protein,Serum 5.3 g/dl (6.3-8.2)
[2022-05-06 06:47] LABS: MANUAL DIFFERENTIAL MANUAL DIFFERENTIAL (MANUAL DIFF)
[2022-05-06 07:49] LABS: Lymphocytes % 8 % (10-50); Neutrophils % 92 % (42-76); Platelet Estimate Slight Decrease; RBC Morphology Normal; Total Cells Counted 100
--- NOTE | 2022-05-06 08:29 | XR_ITS ---
FINAL REPORT CLINICAL HISTORY: f/u icu exam COMPARISON: 05/04/2022 FINDINGS: PORTABLE CHEST There is mild cardiomegaly. The mediastinum is unremarkable. The lungs are underinflated. There is dense perihilar infiltrate, right greater than left, which is significantly progressed since the prior exam, consistent with pneumonia. There is no pneumothorax. IMPRESSION: Findings consistent with significantly progressed perihilar pneumonia as above. Reviewed, Interpreted and Dictated by Piero Fraire MD Transcribed by Heather Gonzalez Authenticated and [facility]
--- NOTE | 2022-05-06 08:30 | EXP.ACUTE.PN ---
Subjective *Date: 05/06/22 *Time: 08:30 Interval history: Overall patient has failed to improve much over the past 24 to 48 hours. Still dependent on BiPAP to maintain oxygen saturations. Is alert but very disoriented. Able to swallow medicine a couple bites of applesauce but quickly desaturates. Medical Exam Vital signs and Labs for Last 24 Hours: Vital Signs Temp Pulse Pulse Resp BP Pulse Ox FiO2 05/06/22 08:00 97.6 F 77 26 H 118/51 L 95 05/06/22 05:28 76 05/06/22 04:00 98.0 F 80 24 125/82 95 05/06/22 00:00 93 H 05/06/22 01:28 70 05/05/22 20:00 102 H 05/06/22 00:00 98.4 F 101 H 22 94/51 L 93 L 05/05/22 22:06 70 05/05/22 20:00 92 L 70 05/05/22 19:59 108 H 24 141/50 H 98 05/05/22 16:00 97.8 F 92 H 30 H 133/55 L 93 L 05/05/22 16:00 90 05/05/22 18:05 93 L 70 05/05/22 18:04 70 05/05/22 12:00 100 H 05/05/22 12:03 70 05/05/22 11:49 98.1 F 91 H 22 133/51 L 96 05/05/22 08:40 95 H 96 Intake and Output 05/05/22 05/06/22 05/06/22 19:59 03:59 11:59 Intake Total 1142 / 1142 Output Total 800 / 1100 300 / 1100 Balance 342 / 42 -300 / 42 Intake: Intake, Other Amount 1142 / 1142 Output: Output, Urine Amount 800 / 800 Output, Urine Amount (Catheter) 300 / 300 Lacey 300 / 300 Other: Number of Unmeasured Voids 0 Weight 187 lb 2 oz Patient Weight 05/06/22 11:59 Weight 187 lb 2 oz Laboratory Results - last 24 hr 05/05/22 11:42: POC Glucose 230 H 05/05/22 16:43: POC Glucose 199 H 05/05/22 20:38: POC Glucose 209 H 05/06/22 05:35: POC Glucose 235 H 05/06/22 05:36: Sodium 141, Potassium 4.8, Chloride 108 H, Carbon Dioxide 31 H, Anion Gap 6.8, BUN 26 H, Creatinine 1.00, Estimated Creat Clear 56, Estimated GFR 53 L, Est GFR ( Amer) 64, Glucose 228 H, Calcium 7.6 L, Total Bilirubin 0.6, AST 14 D, ALT 12 D, Alkaline Phosphatase 79, Total Protein 5.3 L D, Albumin 2.6 L, Globulin 2.7, Albumin/Globulin Ratio 1.0 L 05/06/22 05:36: WBC 7.8 D, RBC 2.98 L D, Hgb 8.7 L, Hct 28.0 L, MCV 93.9, MCH 29.3, MCHC 31.2 L, RDW 17.4, Plt Count 113 L D, MPV 10.1, Neut % (Auto) 89.1 H, Lymph % (Auto) 7.5 L, [place] % (Auto) 3.3, Eos % (Auto) 0.0 L, Baso % (Auto) 0.0 L, Neut # (Auto) 6.9, Lymph # (Auto) 0.6 L, [place] # (Auto) 0.3, Eos # (Auto) 0.0, Baso # (Auto) 0.0, Total Counted 100, Neutrophils % (Manual) 92 H, Lymphocytes % (Manual) 8 L, Platelet Estimate Slight decrease, RBC Morphology Normal 05/06/22 06:00: Specimen Source Right brachial, O2 % 70%, ABG pH 7.33 L, ABG pCO2 55.2 H, ABG pO2 63.0 L, ABG HCO3 28.4 H, ABG Total CO2 30.1 H, ABG O2 Saturation 92, ABG Base Excess 2.4 H, Alex Test Acceptable, PEEP 14/6 I & O for Labs for Last 24 Hours: Intake & Output 05/03/22 05/04/22 05/05/22 05/06/22 11:59 11:59 11:59 11:59 Intake Total 2329 / 2329 1142 / 1142 Output Total 0 / 0 550 / 550 1100 / 1100 Balance 0 / 0 1779 / 1779 42 / 42 Weight 146 lb 3 oz 183 lb 14.4 oz 187 lb 2 oz Microbiology Reports for the Last 24 Hours: Microbiology 05/04/22 03:14 Urine,Catheterized Urine Culture - Final Klebsiella pneumoniae 05/04/22 03:27 Blood Blood Culture - Preliminary NO GROWTH AFTER 48 HOURS 05/04/22 03:27 Blood Blood Culture - Preliminary NO GROWTH AFTER 48 HOURS 05/04/22 06:25 Sputum - Expectorated Sputum Gram Stain - Final 05/04/22 06:25 Sputum - Expectorated Sputum Sputum Culture - Preliminary Comment:: Poor air movement, heart rate regular. Blood pressure looks good, good skin turgor. Abdomen soft and nontender. Neurologic exam notable for significant memory loss and some agitation when BiPAP is off. Assessment and Plan *Assessment and plan (1) Acute on chronic respiratory failure with hypoxia and hypercapnia: Status: Acute Category: M
--- NOTE | 2022-05-06 08:35 | DIET.NUTRFU ---
Patient continues to be NPO, providing oral meds with NTL or applesauce. Unable to take BiPAP off long enough to take in meal. NaCL in place for hydration, labs WNL. BS elevated with insulin in place. Provider reviewed POC with nursing and plans to review with family. If medically feasible and able to tolerate meal her current diet at [place] was pureed with NTL.
[2022-05-06 11:45] LABS: POC Glucose,Bedside 179 (70-110)
--- NOTE | 2022-05-06 15:41 | PC.NURSE ---
RN A Arciniega aware of temperature. Warm blankets applied.
[2022-05-06 16:44] LABS: POC Glucose,Bedside 227 (70-110)
--- NOTE | 2022-05-06 17:17 | PC.NURSE ---
No acute changes noted this shift, attempts made to wean from bipap were unsuccessful, patients o2 saturations quickly dropped to 80%, patient has been treated for anxiety and agitation x2 this shift with good response, has been turned q2h and provided oral care, FC patent and draining clear yellow urine at bedside, lung sounds reveal rhonchi t/o, bipap currently at 70%, HR reg, has had frequent PVCs per telemetry, alert to person only, follows simple commands, bed in lowest position with call light in reach, bed alarm activated.
[2022-05-06 20:34] LABS: POC Glucose,Bedside 197 (70-110)
[2022-05-07] VITALS (12 sets, daily range): BP systolic 105–120; BP diastolic 45–57; PULSE 60–116; RESP 18–32; TEMP 36.2–36.4; O2SAT 94–96; BMI 32.5
[2022-05-07 05:53] LABS: POC Glucose,Bedside 283 (70-110)
--- NOTE | 2022-05-07 08:38 | DIET.NUTRFU ---
Patient has been NPO since admit on 05/04, she is still unable to be off BiPAP in order to eat. Nursing also reported more issues with swallowing, she was pocketing her pills, unable to follow directions. Provider spoke to family about comfort measures here vs hospice at [facility]. NPO status will be continued, enteral feeding is not appropriate at this time.
--- NOTE | 2022-05-07 08:51 | EXP.ACUTE.PN ---
Subjective *Date: 05/07/22 *Time: 08:51 Interval history: Overnight patient has not done well. She is more lethargic and fails to respond to nursing interventions such as oral care or verbal stimuli. She does respond to tactile stimuli this morning but does not open her eyes. She does withdraw to noxious stimuli. She was taken off her BiPAP to do oral care and try to swallow medication last night and immediately desaturated. Medical Exam Vital signs and Labs for Last 24 Hours: Vital Signs Temp Pulse Pulse Resp BP Pulse Ox FiO2 05/07/22 08:00 97.2 F L 66 18 105/51 L 95 05/07/22 08:00 70 05/07/22 07:53 95 70 05/07/22 06:00 70 05/07/22 07:20 67 05/07/22 04:00 97.4 F L 72 28 H 116/45 L 96 05/07/22 02:00 70 05/07/22 00:00 70 05/06/22 20:00 70 05/07/22 00:00 97.1 F L 68 28 H 120/54 L 96 05/06/22 20:00 97.4 F L 74 26 H 141/59 H 94 L 05/06/22 18:40 70 05/06/22 18:00 70 05/06/22 16:00 80 05/06/22 12:00 80 05/06/22 15:48 94 L 70 05/06/22 15:40 96.6 F L 75 24 153/75 H 92 L 05/06/22 13:56 70 05/06/22 11:25 97.7 F 82 27 H 119/54 L 96 05/06/22 09:42 70 Intake and Output 05/06/22 05/07/22 05/07/22 19:59 03:59 11:59 Intake Total 1401 / 2631 1230 / 2631 Output Total 550 / 1150 0 / 1150 600 / 1150 Balance 851 / 1481 0 / 1481 630 / 1481 Intake: Intake, Oral Amount 0 / 0 Intake, Total IV Amount 1401 / 2631 1230 / 2631 0.9 % Sodium Chloride 1,000 ml 1401 / 2631 1230 / 2631 @ 100 mls/hr IV .Q10H [facility] Rx#: [id number] Output: Output, Urine Amount 0 / 200 200 / 200 Output, Urine Amount (Catheter) 550 / 950 400 / 950 Lacey 550 / 950 400 / 950 Other: Number of Unmeasured Voids 0 0 0 Weight 191 lb 1 oz Patient Weight 05/07/22 11:59 Weight 191 lb 1 oz Laboratory Results - last 24 hr 05/06/22 11:38: POC Glucose 179 H 05/06/22 16:37: POC Glucose 227 H 05/06/22 20:23: POC Glucose 197 H 05/07/22 05:40: POC Glucose 283 H I & O for Labs for Last 24 Hours: Intake & Output 05/04/22 05/05/22 05/06/22 05/07/22 11:59 11:59 11:59 11:59 Intake Total 2329 / 2329 1142 / 1142 2631 / 2631 Output Total 0 / 0 550 / 550 1100 / 1100 1150 / 1150 Balance 0 / 0 1779 / 1779 42 / 42 1481 / 1481 Weight 146 lb 3 oz 183 lb 14.4 oz 187 lb 2 oz 191 lb 1 oz Microbiology Reports for the Last 24 Hours: Microbiology 05/04/22 06:25 Sputum - Expectorated Sputum Gram Stain - Final 05/04/22 06:25 Sputum - Expectorated Sputum Sputum Culture - Final Normal Respiratory Stefani 05/04/22 03:14 Urine,Catheterized Urine Culture - Final Klebsiella pneumoniae Comment:: Obtunded, poor air movement. On BiPAP. Heart rate regular. Abdomen soft. Extremities warm and well-perfused neurologic exam as noted above Assessment and Plan *Assessment and plan (1) Acute on chronic respiratory failure with hypoxia and hypercapnia: Status: Acute Category: Medical Code(s): J96.21 - Acute and chronic respiratory failure with hypoxia; J96.22 - Acute and chronic respiratory failure with hypercapnia (2) Acute exacerbation of chronic obstructive pulmonary disease: Status: Acute Category: Medical Code(s): J44.1 - Chronic obstructive pulmonary disease with (acute) exacerbation Plan Overall patient is declining. Believe this is a terminal phase of her disease and short of unwarranted and unwanted by the patient aggressive continued respiratory support she is in a terminal state. If she discussed this with her son. He is in agreement and wishes to go to palliative care but he wishes to discuss this with his brother who may or may not share this opinion. They will get back to me today.
[2022-05-07 11:57] LABS: POC Glucose,Bedside 248 (70-110)
--- NOTE | 2022-05-07 13:46 | PC.NURSE ---
Report given to Allison Argueta RN who assumes care of patient at this time
[2022-05-07 16:40] LABS: POC Glucose,Bedside 274 (70-110)
--- NOTE | 2022-05-07 18:26 | PC.NURSE ---
PT RESTING IN BED. PT HAS BEEN UNRESPONSIVE T/O THE SHIFT. UNABLE TO TOLERATE COMING OFF BIPAP. ORAL CARE PROVIDED. LUNG SOUNDS HAVE RHONCHI T/O. ABDOMEN SOFT/NON TENDER WITH ACTIVE BOWEL SOUNDS. SWELLING NOTED TO BILATERAL ANKLES. TURNED AND REPOSITIONED IN BED. VSS. WILL CONTINUE TO MONITOR.
--- NOTE | 2022-05-07 20:29 | PC.NURSE ---
Spoke with Tc Zhang on the phone to verify expression of wishes at 2028. Tc stated he did not want Anca intubated, Bipap was ok. He stated he would be here in a few minutes.
--- NOTE | 2022-05-07 20:34 | EXP.RR ---
Documented by User: Mateo Brown DNP 05/07/22 20:39 Acute Rapid Response Note Subjective Date Responded: 05/07/22 Time Responded: 20:00 Provider Note: Rapid Response called overhead to room 217. On arriving in the room patient was in the 30's on the monitor. Dose of Atropine given and patient went asystole on the monitor. Chest compressions were started. ER Physian came to bedside and intubated patient. Patient received several rounds of Atropine and Epinephrine per ACLS protocol. See Code sheet. RN was contacting family and primary MD. Objective Findings: Vital Signs - Last 4 Hours Temperature 97.5 F L 05/07/22 15:03 Temperature Source Oral 05/07/22 15:03 Pulse Rate 72 05/07/22 16:00 Respiratory Rate 20 05/07/22 15:03 Blood Pressure 114/49 L 05/07/22 15:03 Blood Pressure Mean 70 05/07/22 15:03 Blood Pressure Source Automatic Cuff 05/07/22 15:03 Blood Pressure Position Supine 05/07/22 15:03 02 Sat by Pulse Oximetry 96 05/07/22 18:27 Oxygen Delivery Method 05/07/22 18:49 Oxygen Flow Rate (LPM) 15 05/05/22 07:05 Lab Results for Past 12 Hours 05/07/22 16:25: POC Glucose 274 H 05/07/22 11:48: POC Glucose 248 H Rapid Response Exam General General appearance: obtunded and obese Head Head exam: atraumatic Respiratory Respiratory exam: Present respiratory distress Cardiovascular Cardiovascular exam: Present bradycardia Abdominal Exam Abdominal exam: Present distention Extremities Exam Extremities exam: Present clubbing RR Procedures/Assess/Plan (1) Acute on chronic respiratory failure with hypoxia and hypercapnia: Comment: RN calling primary MD and calling family for decision for ventilator ABG sent for analysis and Cxray reviewed by MD for tube placement Care per primary MD Status: Acute (2) Acute exacerbation of chronic obstructive pulmonary disease: Status: Acute Assessment and plan all Dx Assessment and Plan for all problems:: Care per Primary Team Documented by User: Freddy Faustin (ED)MD 05/08/22 09:38 RR Procedures/Assess/Plan Bedside Intubation Time Out Performed: No Sedative: none Laryngoscope: Steve Tube size: 7.5 Tube uncuffed: No Secured location: teeth Placement confirmation: visualized tube passing through cords and confirmation by capnometry Patient tolerated procedure intubation: no complications Intubation Complications: none (1) Acute on chronic respiratory failure with hypoxia and hypercapnia: Comment: RN calling primary MD and calling family for decision for ventilator ABG sent for analysis and Cxray reviewed by MD for tube placement Care per primary MD Status: Acute (2) Acute exacerbation of chronic obstructive pulmonary disease: Status: Acute
--- NOTE | 2022-05-07 20:54 | XR_ITS ---
PROCEDURE INFORMATION: Exam: XR Chest Exam date and time: 05/07/2022 8:31 PM Age: 82 years old Clinical indication: Device placement; Ett placement (vent status); Additional info: Intubation TECHNIQUE: Imaging protocol: Radiologic exam of the chest. Views: 1 view. COMPARISON: CR XR CHEST PORTABLE 05/06/2022 9:05 AM FINDINGS: Tubes, catheters and devices: Endotracheal tube tip projects 2.4 cm above the mehran. Lungs: Slightly increased pulmonary expansion. Pulmonary vasculature largely obscured by airspace disease. Moderate bilateral predominantly perihilar and basilar consolidative alveolar opacities are not significantly changed from comparison exam 05/06/2022 at 9:07 a.m., most suggestive of bilateral pneumonia. Pleural spaces: No gross pleural effusion. Left lung base and costophrenic angle are obscured by extrinsic materials. No pneumothorax. Heart/Mediastinum: Mild cardiomegaly. No tracheal/mediastinal shift. Bones/joints: No acute osseous abnormalities are identified. Osteopenia. Chronic appearing left proximal humeral fracture unchanged. IMPRESSION: 1. Endotracheal tube tip projects 2.4 cm above the mehran. 2. Bilateral consolidative alveolar densities concerning for bilateral pneumonia not significantly changed, with slightly improved pulmonary expansion.
--- NOTE | 2022-05-07 21:12 | PC.NURSE ---
[facility] called at this time
[2022-05-07 21:19] LABS: Basophils # 0.2 K/mm3 (0-0.2); Basophils % 0.8 % (0.1-2.0); Eosinophils % 0.1 % (0.1-12.0); Hemoglobin 10.7 g/dL (12.2-16.2); Lymphocytes # 2.5 K/mm3 (0.7-4.5); Lymphocytes % 13.1 % (10-50); Mean Corpuscular HGB Conc 28.2 g/dL (31.8-35.4); Mean Corpuscular Hemoglobin 29.9 pg (27.0-31.2); Mean Corpuscular Volume 106.1 fl (81-99); Mean Platelet Volume 10.1 fl (7.4-10.4); Monocytes # 0.6 K/mm3 (0.1-1.0); Monocytes % 3.1 % (1.7-9.3); Neutrophils # 16.1 K/mm3 (1.8-7.8); Platelet Count 209 K/mm3 (142-424); Red Blood Count 3.58 M/mm3 (4.20-5.40); Red Cell Distribution Width 17.8 % (11.5-17.5); White Blood Count 19.4 K/mm3 (4.8-10.8)
[2022-05-07 21:20] LABS: ABG Base Excess -11.3 mmol/L (-2.4-2.3); ABG HCO3 19.6 mmhg (22.0-26.0); ABG Oxygen Saturation 99 % (90-100); ABG PO2 151.2 mmhg (80-100); ABG TCO2 21.9 mmhg (23-27); Allen's Test Patient Unable; Oxygen 100 %; Source Right Radial
[2022-05-07 21:20] LABS: MANUAL DIFFERENTIAL MANUAL DIFFERENTIAL (MANUAL DIFF)
[2022-05-07 21:21] LABS: ABG PH 7.03 mmol/L (7.35-7.45)
[2022-05-07 21:21] LABS: Chloride 113 mmol/L (98-107)
[2022-05-07 21:22] LABS: Potassium 5.9 mmoL/L (3.5-5.1); Sodium 145 mmol/L (136-145)
[2022-05-07 21:22] LABS: ABG PCO2 76.7 mmhg (35.0-45.0)
[2022-05-07 21:24] LABS: Blood Urea Nitrogen 32 mg/dl (7-17); Creatinine Clearance Estimated 44 mL/min (50-200); Estimated Glomerular Filt Rate 39 ml/min (>60); GFR (African American) 47 ML/MIN (>60)
[2022-05-07 21:25] LABS: Anion Gap 12.9 mEq/L (5-15); Carbon Dioxide 25 mmol/L (22.0-30.0); Glucose 350 mg/dl (74-100)
[2022-05-07 22:00] LABS: Lymphocytes % 22 % (10-50); Macrocytosis 2+; Neutrophils % 78 % (42-76); Platelet Estimate Normal; Total Cells Counted 100
--- NOTE | 2022-05-07 22:15 | PC.NURSE ---
Called [facility] at this time
[2022-05-07 22:27] LABS: POC Glucose,Bedside 288 (70-110)
--- NOTE | 2022-05-07 22:52 | PC.NURSE ---
Pt transported off floor with [facility] @ this time.
--- NOTE | 2022-05-07 23:06 | PC.NURSE ---
1959- Received call from demurrage clerk of pts o2 sats being 83%. Entered room immediately, pt on BIPAP 70% at this time.Respiratory called to room, Bipap increased to Fio2 100%. O2 sats decreased to 78%. Pt slightly responsive at this time. Began bagging pt at this time. 2004- Rapid Response called, Pt unresponsive, still with pulse. 2007- FSBS 288. HR decreased to 30's. Weak pulse 2008. Pt lost pulse. CPR began at this time. 2009- 1 mg epi given 2011- 1mg epi given. ROSC. CPR stopped. sinus tach on AED. 2014- Pt lost pulse, CPR began 2015 1 mg Epi given. ROSC. CPR stopped. Sinus daren in 30's on AED. 1 mg atropine given 2016. Sinus daren in 20's. Atropine 1 mg given 2017- 1 mg epi given, Pt intubated by ED MD Dr. Faustin 7.5 ET tube, 23 cm at the teeth with color change. HR sinus daren in 50's with pulse. 2019- CXR obtained 2022- 16fr NG tube placed in right nare @65cm. 2024- Dr Farrell on phone at this time. Dr Farrell states pt is DNR at long-term, and pts wishes were to not be intubated. 2028- Spoke with Next of Kin, Tc Vicente, Pts son. Pts son made aware of pts status. States he would like for us to take the tube out of her mouth and put her back on bipap Reviewed expression of wishes, DNR form, with Pts son and witnessed/verified with JOSE Gama RN. Pt son would like pt to be DNR at this time. Voices understanding. 2031- Spoke with Dr Farrell. Orders received to extubate pt at this time and place on BIPAP. 2039- Pt extubated and placed on BIPAP 2049- Vfib on monitor 2051- Asystole on monitor, No pulse felt at this time. 2056- Dr Faustin at bedside to pronounce. TOD 2056.
--- NOTE | 2022-05-08 09:40 | P.DN_ITS ---
Pronouncement Note Date and Time of Date of : 05/06/22 Time of : 09:41 PCOD Preliminary cause of : Respiratory failure Contributing Factors (1) Acute on chronic respiratory failure with hypoxia and hypercapnia: (2) Acute exacerbation of chronic obstructive pulmonary disease: Additional Data Confirmation of : no pulse, no respirations, no heart sounds and pupils fixed and dilated Family: contacted Attending/PCP notified?: Yes Attending physician: Saulo Farrell MD Was code activated?: Yes Autopsy requested?: No liability claims examiner notified?: No Organ bank notified?: Yes Advance directives: Yes
[2022-05-08 09:45] LABS: POC Glucose,Bedside 324 (70-110)
--- NOTE | 2022-05-19 17:00 | P.DN_ITS ---
Discharge Sum: Prov Provider Primary care physician: Saulo Farrell MD Visit Care Team Role Provider Type Freddy Faustin (ED), Emergency Provider ER Physician Saulo Farrell MD Admit Provider Staff Physician Attending Provider Primary Care Provider Admitting clinician: Saulo Farrell Attending physician on admission: Saulo Farrell Pronouncing clinician: Freddy Faustin Discharge Sum: Diag Contributing Factors (1) Acute on chronic respiratory failure with hypoxia and hypercapnia: (2) Acute exacerbation of chronic obstructive pulmonary disease: Discharge Sum: Summary Date and Time Date of admission: 05/04/22 05:40 Date of : 05/07/22 Time of : 21:40 Hospital Course prior to Hospital Course Information: Patient was admitted from [facility] with acute on chronic hypercapnic respiratory failure. Responded to BiPAP, but unlike prior admissions did not regain consciousness and became dependent on BiPAP. Multiple conversations with her sons were held, one of her sons wished to maintain her DNR status that she had at the [facility] and avoid intubation. Another son did not wish this. There was some family disagreement although cordially, and unfortunately patient did not improve with supportive care, antibiotics and BiPAP. She actually respiratory arrest and was intubated. This prompted a reconsideration of the status with her sons who decided jointly that she would not of wanted to be on a ventilator and they changed jointly her CODE STATUS to DNR without intubation. The patient was extubated after this event, and quickly of her multiple medical problems. In accordance with her family wishes and her stated wishes the [facility] she was not aggressively resuscitated. Summary Details: See notes above Additional Data Confirmation of as documented by pronouncing clinician: no pulse Family: at bedside Attending/PCP notified?: Yes Attending physician: Saulo Farrell MD Was code activated?: No Autopsy requested?: No driver examiner notified?: No Organ bank notified?: Yes Advance directives: Yes Hospice patient?: No
== END 2022-05-07 22:52 | disposition expired | DRG 189 ==
LOC: ER 04:34 → 2ND 14:18
PROVIDERS: Admitting Provider Internal Medicine Adolescent Medicine; Emergency Provider Emergency Medicine; PCP Internal Medicine Adolescent Medicine; Visit Provider Internal Medicine Adolescent Medicine
DX: J96.02 Acute respiratory failure with hypercapnia (principal); J18.9 Pneumonia, unspecified organism; J44.1 Chronic obstructive pulmonary disease with (acute) exacerbation; J44.0 Chronic obstructive pulmonary disease with (acute) lower respiratory infection; J96.21 Acute and chronic respiratory failure with hypoxia; Z51.5 Encounter for palliative care; I50.9 Heart failure, unspecified; E11.610 Type 2 diabetes mellitus with diabetic neuropathic arthropathy; Z79.4 Long term (current) use of insulin; K21.9 Gastro-esophageal reflux disease without esophagitis; E78.5 Hyperlipidemia, unspecified; F41.9 Anxiety disorder, unspecified; I11.0 Hypertensive heart disease with heart failure; Z87.891 Personal history of nicotine dependence; Z99.81 Dependence on supplemental oxygen; Z91.199 Patient's noncompliance with other medical treatment and regimen due to unspecified reason; F32.A Depression, unspecified
CPT/HCPCS: 31500; 36415; 51702; 71045; 80048; 80053; 81001; 82009; 82803; 82962; 83605; 83880; 84145; 84484; 85007; 85025; 85651; 86140; 87040; 87070; 87086; 87088; 87186; 87205; 93005; 94640; 94660; 94761; 99291; C9803; J1956; U0003; U0005